=== PATIENT | female | born 1965 | race Caucasian/White ===

== ENCOUNTER 2016-08-06 08:35 | Emergency (ER) | payer MEDICAID ==
[2016-08-06] MEDS ORDERED: SODIUM CHLORIDE 0.9% 2,000 ML IV STA (08:57)
[2016-08-06] MEDS ORDERED: ONDANSETRON 4 MG/2 ML VIAL IVP STA ×2 (08:57→09:43)
[2016-08-06] MEDS ORDERED: FAMOTIDINE 20 MG/2 ML VIAL IV STA (09:03)
--- NOTE | 2016-08-06 09:04 | ED ---
Nausea/Vomiting/Diarrhea HPI - General Chief complaint: Nausea/Vomiting/Diarrhea Stated complaint: Vomiting Time Seen by Provider: 08/06/16 08:52 Source: patient, RN notes reviewed Mode of arrival: ambulatory Limitations: no limitations - History of Present Illness Initial comments: This a 50-year-old female presents emergency Department with chief complaint of nausea vomiting started last night. She states she originally started with some abdominal cramping in which she felt like she could just lay down or sleep states she woke up vomiting all night long. Patient states she is dry heaving and having bile emesis. Patient denies any hematemesis or coffee-ground emesis. Patient denies fever, chills, night sweats, chest pain, shortness breath, diarrhea constipation. She states she had normal bowel movement this morning. She denies any dysuria or hematuria. She's had a prior no other abdominal surgeries noted. denies any specific abdominal pain at this time. - Related Data Home Medications Medication Instructions Recorded Confirmed Cetirizine HCl [Zyrtec] 10 mg PO DAILY 12/25/13 08/06/16 Ibuprofen [Motrin] 800 mg PO Q8H PRN 02/26/16 08/06/16 Levothyroxine Sodium [Synthroid] 175 mcg PO DAILY 02/26/16 08/06/16 Sertraline HCl [Sertraline HCl] 100 mg PO DAILY 08/06/16 08/06/16 Previous Rx's Medication Instructions Recorded Ondansetron Odt [Zofran Odt] 4 mg PO Q8HR PRN #10 tab 08/06/16 Allergies Allergy/AdvReac Type Severity Reaction Status Date / Time acetaminophen Allergy Unknown Verified 08/06/16 10:46 [From Tylenol-Codeine #3] azithromycin Allergy Unknown Verified 08/06/16 10:46 codeine Allergy Unknown Verified 08/06/16 10:46 codeine phosphate Allergy Unknown Verified 08/06/16 10:46 [From Tylenol-Codeine #3] Penicillins Allergy Unknown Verified 08/06/16 10:46 tetanus toxoid, adsorbed Allergy Unknown Verified 08/06/16 10:46 Review of Systems ROS Statement: Those systems with pertinent positive or pertinent negative responses have been documented in the HPI. ROS Other: All systems not noted in ROS Statement are negative. Past Medical History Past Medical History: Thyroid Disorder Additional Past Medical History / Comment(s): BACK PAIN migraines History of Any Multi-Drug Resistant Organisms: None Reported Past Surgical History: Section, Hysterectomy Past Psychological History: Anxiety, Depression Smoking Status: Current every day smoker Past Alcohol Use History: None Reported Past Drug Use History: None Reported General Exam Limitations: no limitations General appearance: alert, in no apparent distress Head exam: Present: atraumatic, normocephalic, normal inspection ENT exam: Present: mucous membranes moist Neck exam: Present: normal inspection, full ROM. Absent: tenderness, meningismus, lymphadenopathy Respiratory exam: Present: normal lung sounds bilaterally. Absent: respiratory distress, wheezes, rales, rhonchi, stridor Cardiovascular Exam: Present: regular rate, normal rhythm, normal heart sounds. Absent: systolic murmur, diastolic murmur, rubs, gallop, clicks GI/Abdominal exam: Present: soft, tenderness (Mild epigastric tenderness), normal bowel sounds. Absent: distended, guarding, rebound, rigid Back exam: Absent: CVA tenderness (R), CVA tenderness (L) Skin exam: Present: warm, dry, intact, normal color. Absent: rash Course Vital Signs 08/06/16 08/06/16 08:49 11:11 Temperature 98.1 F Pulse Rate 69 73 Respiratory 17 18 Rate Blood Pressure 119/56 104/58 O2 Sat by Pulse 98 96 Oximetry Medical Decision Making - Medical Decision Making 50-year-old female presented for nausea vomiting. Patient states she does feel improved at this time. Patient be discharged Zofran. Return parameters were discussed. Lab work within normal limits. Patient was hydrated with a mild elevation in her potassium. Labs is slightly hemolyzed. - Lab Data Result diagrams: 08/06/16 09:10 08/06/16 09:10 Lab Results 08/06/16 08/06/16 08/06/16 Range/Units 09:10 09:10 09:15 WBC 9.6 (3.8-10.6) k/uL RBC 4.84 (3.80-5.40) m/uL Hgb 14.9 (11.4-16.0) gm/dL Hct 44.7 (34.0-46.0) % MCV 92.3 (80.0-100.0) fL MCH 30.8 (25.0-35.0) pg MCHC 33.3 (31.0-37.0) g/dL RDW 13.1 (11.5-15.5) % Plt Count 270 (150-450) k/uL Neutrophils % 84 % Lymphocytes % 9 % Monocytes % 4 % Eosinophils % 1 % Basophils % 0 % Neutrophils # 8.1 H (1.3-7.7) k/uL Lymphocytes # 0.9 L (1.0-4.8) k/uL Monocytes # 0.4 (0-1.0) k/uL Eosinophils # 0.1 (0-0.7) k/uL Basophils # 0.0 (0-0.2) k/uL Sodium 138 (137-145) mmol/L Potassium 5.5 H (3.5-5.1) mmol/L Chloride 100 (98-107) mmol/L Carbon Dioxide 29 (22-30) mmol/L Anion Gap 9 mmol/L BUN 17 (7-17) mg/dL Creatinine 0.83 (0.52-1.04) mg/dL Est GFR (MDRD) Af Amer >60 (>60 ml/min/1.73 sqM) Est GFR (MDRD) Non-Af >60 (>60 ml/min/1.73 sqM) Glucose 121 H (74-99) mg/dL Calcium 9.6 (8.4-10.2) mg/dL Total Bilirubin 0.6 (0.2-1.3) mg/dL AST 17 (14-36) U/L ALT 26 (9-52) U/L Alkaline Phosphatase 101 (38-126) U/L Total Protein 7.7 (6.3-8.2) g/dL Albumin 4.6 (3.5-5.0) g/dL Amylase 56 (30-110) U/L Lipase 64 (23-300) U/L Urine Color Yellow Urine Appearance Clear (Clear) Urine pH 6.0 (5.0-8.0) Ur Specific [place] 1.030 (1.001-1.035) Urine Protein 1+ H (Negative) Urine Glucose (UA) Negative (Negative) Urine Ketones Negative (Negative) Urine Blood Negative (Negative) Urine Nitrite Negative (Negative) Urine Bilirubin Negative (Negative) Urine Urobilinogen 2.0 (<2.0) mg/dL Ur Leukocyte Esterase Negative (Negative) Urine RBC 2 (0-5) /hpf Urine WBC 1 (0-5) /hpf Ur Squamous Epith Cells 2 (0-4) /hpf Urine Bacteria Rare H (None) /hpf Urine Mucus Rare H (None) /hpf Disposition Clinical Impression: Gastroenteritis Disposition: HOME SELF-CARE Condition: Stable Instructions: Acute Nausea and Vomiting (ED) Additional Instructions: Please return to the Emergency Department if symptoms worsen or any other concerns. Prescriptions: Ondansetron Odt [Zofran Odt] 4 mg PO Q8HR PRN #10 tab PRN Reason: Nausea Time of Disposition: 11:40
[2016-08-06 09:22] LABS: Basophils % (A) 0 %; CH 31.2; CHCM 33.9; Eosinophils # (A) 0.1 k/uL (0-0.7); Eosinophils % (A) 1 %; HCT 44.7 % (34.0-46.0); HDW 2.46; HGB 14.9 gm/dL (11.4-16.0); Luc # (Auto) 0.14; Luc % (Auto) 2; Lymphocytes # (A) 0.9 k/uL (1.0-4.8); Lymphocytes % (A) 9 %; MCH 30.8 pg (25.0-35.0); MCHC 33.3 g/dL (31.0-37.0); MCV 92.3 fL (80.0-100.0); Mean Platelet Volume 7.2; Monocytes # (A) 0.4 k/uL (0-1.0); Monocytes % (A) 4 %; Neutrophils # (A) 8.1 k/uL (1.3-7.7); Neutrophils % (A) 84 %; RBC 4.84 m/uL (3.80-5.40); RDW 13.1 % (11.5-15.5); WBC 9.6 k/uL (3.8-10.6); WBC (Perox) 9.75
[2016-08-06 09:36] LABS: ALT 26 U/L (9-52); AST 17 U/L (14-36); Alkaline Phosphatase 101 U/L (38-126); Amylase 56 U/L (30-110); Anion Gap 9 mmol/L; Blood Urea Nitrogen 17 mg/dL (7-17); Calcium 9.6 mg/dL (8.4-10.2); Carbon Dioxide 29 mmol/L (22-30); Chloride 100 mmol/L (98-107); Glucose 121 mg/dL (74-99); Non-African American GFR(MDRD) >60 (>60 ml/min/1.73 sqM); Potassium 5.5 mmol/L (3.5-5.1); Sodium 138 mmol/L (137-145); Total Bilirubin 0.6 mg/dL (0.2-1.3); Total Protein 7.7 g/dL (6.3-8.2)
[2016-08-06 09:40] LABS: Appearance,Urine Clear (Clear); Bacteria,Urine Rare /hpf; Bilirubin,Urine Negative (Negative); Glucose,Urine (UA) Negative (Negative); Ketones,Urine Negative (Negative); Leukocyte Esterase,Urine Negative (Negative); Mucus,Urine Rare /hpf; Nitrite,Urine Negative (Negative); Particle Count 5341; Protein,Urine 1+ (Negative); RBC,Urine 2 /hpf (0-5); Squamous Epithelial Cell,Urine 2 /hpf (0-4); UA Billing (MACRO vs. MICRO) MICRO; WBC,Urine 1 /hpf (0-5)
[2016-08-06] MEDS ORDERED: HYOSCYAMINE SULFATE 0.125 MG TAB PO STA (09:43)
[2016-08-06] MEDS ORDERED: METOCLOPRAMIDE 5 MG/ML 2 ML VIAL IVP STA (11:39)
[2016-08-06 12:31] VITALS: BP 101/64; PULSE 78; RESP 16; TEMP 98
== END 2016-08-06 12:36 | disposition home or self-care (01) ==
LOC: EC 08:35
DX: K52.9 Noninfective gastroenteritis and colitis, unspecified (principal); E07.9 Disorder of thyroid, unspecified; F41.9 Anxiety disorder, unspecified; F32.9 Major depressive disorder, single episode, unspecified; F17.200 Nicotine dependence, unspecified, uncomplicated; Z79.899 Other long term (current) drug therapy; Z88.0 Allergy status to penicillin; Z88.1 Allergy status to other antibiotic agents; Z88.6 Allergy status to analgesic agent; Z88.5 Allergy status to narcotic agent; Z88.7 Allergy status to serum and vaccine
CPT/HCPCS: 36415; 80053; 82150; 83690; 85025; 81001; 99284; 96374; 96375 ×2; 96376; 96361 ×3; J2765; J2405

== ENCOUNTER → 2017-06-15 | Outpatient (CLI) | payer MEDICAID ==
[2017-06-15 08:14] LABS: T4, Free (Free Thyroxine) 0.64 ng/dL (0.78-2.19)
== END | disposition home or self-care (01) ==
LOC: LABWHC1 07:15
PROVIDERS: ATTEND Otolaryngology
DX: E03.9 Hypothyroidism, unspecified (principal)
CPT/HCPCS: 36415; 84439; 84443; 86376

== ENCOUNTER → 2017-08-18 | Outpatient (CLI) | payer MEDICAID ==
[2017-08-18 14:19] LABS: HGB 14.9 gm/dL (11.4-16.0); MCH 29.1 pg (25.0-35.0); MCHC 32.3 g/dL (31.0-37.0); MCV 90.1 fL (80.0-100.0); Mean Platelet Volume 8.2; Platelet Count 228 k/uL (150-450); RBC 5.11 m/uL (3.80-5.40); RDW 13.2 % (11.5-15.5); WBC 5.3 k/uL (3.8-10.6)
== END | disposition home or self-care (01) ==
LOC: LABWHC1 13:59
PROVIDERS: ATTEND Internal Medicine Endocrinology, Diabetes & Metabolism
DX: E03.8 Other specified hypothyroidism (principal)
CPT/HCPCS: 36415; 84443; 85027

== ENCOUNTER → 2017-10-04 | Outpatient (CLI) | payer MEDICAID | END | disposition home or self-care (01) | LOC: LABWHC1 12:13 | PROVIDERS: ATTEND Internal Medicine Endocrinology, Diabetes & Metabolism | DX: E03.8 Other specified hypothyroidism (principal) | CPT/HCPCS: 36415; 84443 ==

== ENCOUNTER → 2017-12-14 | Outpatient (CLI) | payer MEDICAID ==
--- NOTE | 2017-12-16 08:35 | MM ---
Reason for exam: clinical finding. Last mammogram was performed 8 months ago. History: Cyst aspiration of the left breast, 2013. Physical Findings: Nurse Summary: 0.5-1cm nodule in the right breast at 9:30 and 12 o'clock, a 0.5-2cm nodule in the left breast at 9 o'clock, 12 o'clock and 1 o'clock (nurse kp). MG 3D Diag Mammo W/Cad LT CC and MLO view(s) were taken of the left breast. Prior study comparison: April 28, 2017, bilateral MG 3d screening mammo w/cad. March 02, 2016, bilateral MG 3d diag mammo w/cad [facility]. The breast tissue is extremely dense which could obscure a lesion on mammography. Elongated dense tissue is seen on the left breast multiple ill defined masses better appreciated sonographically due to breast tissue composition. These results were verbally communicated with the patient and result sheet given to the patient on 12/14/17. ASSESSMENT: Incomplete: need additional imaging evaluation, BI-RAD 0 RECOMMENDATION: Ultrasound of both breasts.
--- NOTE | 2017-12-16 08:45 | USB ---
Reason for exam: additional evaluation requested from abnormal screening. History: Cyst aspiration of the left breast, 2013. US Breast BILAT Right complete breast ultrasound includes all four quadrants, the retroareolar region and axilla. Finding demonstrates several oval cystic lesions measuring 0.5 x 0.7 x 0.4cm at 12 o'clock, 0.4 x 0.6 x 0.4cm at 12 o'clock, 0.8 x 0.7 x 0.5cm at 12 o'clock, 0.6 x 0.6 x 0.4cm at 1 o'clock, 1.1 x 1.0 x 0.7cm at 2 o'clock, 0.8 x 0.6 x 0.3cm at 9 o'clock, 1.0 x 1.1 x 0.7cm at 1 o'clock BB, 0.5 x 0.4 x 0.4cm at 11 o'clock and a 0.7 x 0.6 x 0.3cm oval, mixed lesion at 10 o'clock. Left complete breast ultrasound includes all four quadrants, the retroareolar region and axilla. Finding demonstrates a 0.6 x 0.9 x 0.6cm oval, mixed lesion at 12 o'clock BB, a 1.7 x 1.4 x 1.2cm irregular, solid, vascular lesion at 12 o'clock for which a biopsy is recommended, a 0.8 x 0.9 x 0.7cm oval, mixed lesion at 1 o'clock, a 1.5 x 1.6 x 0.6cm cystic lesion at 1 o'clock BB, a 0.6 x 0.6 x 0.5cm cystic lesion at 3 o'clock, a 0.8 x 0.9 x 0.4cm solid lesion at 6 o'clock for which a biopsy is recommended, a 2.5 x 1.3 x 0.5cm irregular, solid lesion at 8 o'clock, a 2.9 x 3.1 x 1.2cm irregular, solid, hypoechoic, vascular lesion at 9 o'clock, a 2.7 x 3.5 x 1.2cm irregular, hypoechoic, solid lesion at 10 o'clock and a irregular mass continues as hypoechoic solid mass at 11 o'clock. It appears that multiple masses connect and extend over 5.2cm from 8 o'clock on the left and therefore 2 site biopsy and the margins are recommended to establish possible extent of disease. Management of the solid mass at 6 o'clock on the left should be made on recommendations at rad/path correlation of the above recommended biopsies. These results were verbally communicated with the patient and result sheet given to the patient on 12/14/17. ASSESSMENT: Suspicious, BI-RAD 4 RECOMMENDATION: Ultrasound core biopsy of the left breast. Called Dr. Jean with mammographic findings and office will call patient and set up appointment and biopsy. PRELIMINARY REPORT CALLED AND FAXED TO DR. JEAN ON 12/16/17.
== END | disposition home or self-care (01) ==
LOC: RADMAMWWP 13:28
PROVIDERS: ATTEND Family Medicine
DX: N63.20 Unspecified lump in the left breast, unspecified quadrant (principal); R92.8 Other abnormal and inconclusive findings on diagnostic imaging of breast
CPT/HCPCS: 77061; 77065

== ENCOUNTER → 2017-12-20 | Outpatient (CLI) | payer MEDICAID ==
--- NOTE | 2017-12-20 16:06 | CT ---
EXAMINATION TYPE: CT chest wo con DATE OF EXAM: 12/20/2017 COMPARISON: None HISTORY: 52-year-old female abnormal weight loss, family hx of lung ca TECHNIQUE: Contiguous axial scanning of the chest without IV contrast. Coronal and sagittal reconstru ctions performed. CT DLP: 118.1 mGycm Automated exposure control for dose reduction was used. FINDINGS: Heart normal size without pericardial effusion. Ascending aorta normal caliber with bovine configuration to the aortic arch. Upper descending thoraci c aorta borderline ectatic at 3.0 cm. No thoracic lymphadenopathy identified by noncontrast technique. Calcified granuloma medial right upper lobe. -4 mm peripheral left upper lobe pulmonary nodule axial image 12. -3 mm peripheral right mid to lower lung pulmonary nodule in the right middle lobe, axial image 38. -4 mm right midlung pulmonary nodule along the superior major fissure, axial image 21. Mild biapical pleural-parenchymal scarring and mild scattered centrilobular emphysema especially in t he upper lungs. No consolidation or pleural effusion. Visualized upper abdomen shows a small 5 mm gallstone. Otherwise, assessment limited without IV contr ast. Bones: No osseous destructive process. IMPRESSION: 1. COPD WITH MILD EMPHYSEMA. 2. APPROXIMATELY 3 PULMONARY NODULES MEASURING UP TO 4 MM. SIX-MONTH FOLLOW-UP CT RECOMMENDED. 3. CHOLELITHIASIS.
== END | disposition home or self-care (01) ==
LOC: RADCTMAIN 14:56
PROVIDERS: ATTEND Family Medicine
DX: R91.8 Other nonspecific abnormal finding of lung field (principal); J44.9 Chronic obstructive pulmonary disease, unspecified
CPT/HCPCS: 71250

== ENCOUNTER 2018-01-03 12:26 | Day surgery (SDC) | payer MEDICAID ==
[2018-01-02 12:07] VITALS: BMI 17.4
[~2018-01-03 12:26] MED LIST: LACTATED RINGERS 1,000 ML IV SCH; LIDOCAINE 1% 20 ML VIAL (10MG/ML) FOR IV START INTRADERMA PRN; MIDAZOLAM 2 MG/2 ML VIAL IV PRN
[2018-01-03 12:58] VITALS: RESP 16; TEMP 98.3
[2018-01-03] MEDS ORDERED: LIDOCAINE 1% INJ 10MG/ML (20 ML MDV) ONE (13:41)
[2018-01-03] MEDS ORDERED: PROPOFOL 10 MG/ML 20 ML VIAL IV ONE (13:41)
--- NOTE | 2018-01-03 14:08 | P.PCN ---
Date of Procedure: 01/03/18 Procedure(s) Performed: Procedure: Total colonoscopy. Preoperative diagnosis: Screening for neoplasia. Postoperative diagnosis: Exam within normal limits. Preparation: HalfLytely prep. Sedation: Was provided by anesthesia. Brief clinical history: The patient is a 52-year-old female who was scheduled for this evaluation for screening for neoplasia age being her risk factor. No family history of colon cancer. She has no abdominal complaints, bleeding or anemia. This would be her first colonoscopy. Procedure: With the patient on her left lateral decubitus position and after informed consent and adequate sedation, the anal area was inspected and it did not show any fissures or fistulas. There were no masses felt on digital rectal examination. The Olympus CFQ 160L video colonoscope was then inserted in the rectum in the usual fashion and advanced to the cecum. The mucosa appeared healthy. No polyps or tumors were seen or any obvious diverticular disease or other pathology. I retroflexed the endoscope in the rectum before the endoscope was withdrawn. The patient tolerated the procedure well. Plan: The patient was reassured. She will follow-up with you as planned and I recommended repeat exam in 10 years.
[2018-01-03 14:26] VITALS: PULSE 69
[2018-01-03 14:38] VITALS: BP 120/78
== END 2018-01-03 14:50 | disposition home or self-care (01) ==
LOC: ORWHC2ENDO 12:26
DX: Z12.11 Encounter for screening for malignant neoplasm of colon (principal); F32.9 Major depressive disorder, single episode, unspecified; E07.9 Disorder of thyroid, unspecified; M54.9 Dorsalgia, unspecified; F17.210 Nicotine dependence, cigarettes, uncomplicated; Z88.0 Allergy status to penicillin; Z88.7 Allergy status to serum and vaccine; Z88.5 Allergy status to narcotic agent; Z88.1 Allergy status to other antibiotic agents; Z79.890 Hormone replacement therapy; Z79.1 Long term (current) use of non-steroidal anti-inflammatories (NSAID); Z79.899 Other long term (current) drug therapy
CPT/HCPCS: G0121; J2001; J2704

== ENCOUNTER → 2018-01-10 | Day surgery (SDC) | payer MEDICAID ==
[2018-01-10 11:41] VITALS: BP 104/50; PULSE 71; RESP 16; TEMP 97.8; BMI 17.4
--- NOTE | 2018-01-10 15:13 | USB ---
EXAMINATION TYPE: US biopsy breast VAD LT x 3 site, Postbiopsy MG diagnostic mammo LT wo CAD DATE OF EXAM: 01/10/2018 CLINICAL HISTORY: 52-year-old female R92.8 Abnormal Mammo. TECHNIQUE: Ultrasound guided core biopsy of the left breast, 3 sites. COMPARISON: 12/14/2017 and 04/28/2017 FINDINGS: The procedure of ultrasound guided core biopsy was explained to the patient. Benefits, alt ernatives, and risks were discussed. An informed consent was then obtained. Large contiguous area of heterogeneity was redemonstrated extending from 12:00 to 8:00. All of this a kaiser has a suspicious appearance. The 12:00 and 8:00 margins were targeted for biopsy. The ovoid, circumscribed hypoechoic lesion at 6:00 measuring 1.0 x 0.4 cm is also demonstrated and wa s targeted for biopsy. The patient was placed in supine positioning for imaging and for the procedure. The overlying skin w as prepped and draped in usual sterile fashion. Lidocaine buffered with bicarbonate was used as anes thetic into the skin and subcutaneous tissue up to each of 3 areas of concern in the left breast in t urn. SITE A - 12:00 superior margin - Under ultrasound guidance, a 13-gauge vacuum assisted mammotome Elit e biopsy gun device was used to obtain 5 core samples. Following this, a coil clip was left in lesio n. SITE B - 8:00 inferior margin - Under ultrasound guidance, a 13-gauge vacuum assisted mammotome Elite biopsy gun device was used to obtain 5 core samples. Ribbon clip was placed. However, the specimens were realized to be diminutive and inadequate when transferring to formalin. 2 additional 12-gauge co re specimens were obtained utilizing vacuum-assisted Celero device. A second ribbon clip was placed h ere in case the first ribbon clip was inadvertently removed. SITE C - 6:00 - Under ultrasound guidance, a 13-gauge vacuum assisted Mammotome Elite biopsy gun libertad ce was used to obtain 5 core samples. Following this, a wing clip was left at the site of biopsy. T he clip was deposited along the lateral margin of the lesion. The patient tolerated the procedure well without any immediate complication. The patient was kept in the radiology department for short stay after the procedure and then discharged home in stable condi tion. Post procedure mammogram shows a total of 4 clips, 12:00 coil clip demarcating the superior margin of the sonographic abnormality, two 8:00 ribbon clips demarcating the inferior margin of the sonographi c abnormality, and a separate wing clip at 6:00, possible fibroadenoma. IMPRESSION: Successful 3 site left breast biopsy. The superior and inferior margins of the sonographic abnormality are demarcated by coil and ribbon cl ips, respectively. This large area is very suspicious and extends from 8:00 to 12:00. A third site at 6:00 (wing clip) may be a fibroadenoma. Full pathology results to follow.
== END | disposition home or self-care (01) ==
LOC: RADUSWWP 11:21
PROVIDERS: ATTEND Family Medicine
DX: C50.912 Malignant neoplasm of unspecified site of left female breast (principal); D24.2 Benign neoplasm of left breast; N60.02 Solitary cyst of left breast; N60.32 Fibrosclerosis of left breast
CPT/HCPCS: 88305; 88342; 77065; 19083; 19084 ×2; A4648; J2001

== ENCOUNTER → 2018-01-12 | Outpatient (CLI) | payer MEDICAID | END | disposition home or self-care (01) | LOC: LABWHC1 15:05 | PROVIDERS: ATTEND Internal Medicine Endocrinology, Diabetes & Metabolism | DX: E03.8 Other specified hypothyroidism (principal) | CPT/HCPCS: 36415; 84443 ==

== ENCOUNTER → 2018-02-10 | Outpatient (CLI) | payer MEDICAID ==
--- NOTE | 2018-02-21 15:29 | BMR ---
EXAMINATION TYPE: MR breast BILAT wo/w con DATE OF EXAM: 02/10/2018 Clinical history: New diagnosis multicentric left breast cancer and bilateral cysts. No intake forms provided. Comparisons: Mammogram and US dated 12/14/2017. Screening US dated 04/28/2017. Biopsy US images and p ost biopsy mammogram dated 01/10/18. PULSE SEQUENCES: Multiplanar, multisequence MR images of the breast were obtained on a 3.[employer] Magnetom Trio MRI imaging scanner. Coronal STIR in the body coil, followed by pre-contrast axial T 2 fat-saturated, non fat saturated Tl, and one pre- and five post-contrast fat-saturated images were obtained of both breasts together with the breast coil. Post-processed subtraction and MIP reconstruc tions were then generated. Dynamic images were spatially registered using the [id number] are package, and dynamic curves and parametric images were evaluated. As part of the dynamic portion of this examination, contrast was administered intravenously at a rate of 5 ml/sec, without complication. Field of View for the dynamic portion of this study was not provi ded. FINDINGS: There is heterogeneous fibroglandular tissue bilaterally and marked background enhancement. Coronal STIR sequence demonstrates normal right and prominent left axillary lymph nodes. Axial T2 sequence demonstrates innumerable bilateral scattered simple cysts. No fluid collections. Non fat saturated Tl sequence demonstrates no fat containing lesions. There are three areas of suscep tibility artifact in the left breast best seen in images #23,33 and 49. Delayed post contrast sequence demonstrates prominent left internal mammary Iymph node at the 3/4 int ercostal space, best seen in image number 37. Regarding the right breast: At the 11:00 position, 3.5 cm fn. There is focal non mass enhancement sukhdeep suring 1.3 x 0.8 x 2.1 cm. lnternal enhancement is heterogeneous. Kinetic assessment demonstrates fas t initial enhancement followed by washout in the delayed portions of the curve. Best seen in image nu mber 49. Otherwise marked background enhancement limits evaluation of subtle findings. Regarding the left breast: Centered at the 9:00 position, 1.5 cm fn, there is diffuse non mass enhanc ement measuring 3.3 x 1.6 x 5.4 cm. The areas of susceptibility artifact are embedded with in the dif fuse non mass enhancement. IMPRESSION: Known malignancy identified as a confluent area ofnon mass enhancement involving almost the entirelef t breast, maximum extent 5.4 cm. Suspicious non mass enhancement in the right breast as described in detail in the body of the report. Prominent left axillary lymph nodes, may be reactive or represent metastatic disease. Left internal mammary node is indeterminate. Innumerable bilateral simple cysts. Recommendations: Appropriate action be taken of the known left breast malignancy. MR directed US of the right breast non mass enhancement to plan for biopsy. If there is no US correla te,MR guided biopsy or wire localization can be performed. BI-RADS category 4, suspicious right breast. BI-RADS category 6, known biopsy proven malignancy left breast. REVIEWED BY: THIS DOCUMENT HAS BEEN ELECTRONICALLY SIGNED Jessi Javier MD Final Assembly Worker of Clinical Radiology Varnish Finisher. Breast Imaging Section Telesales Consultant Student Education in Radiology This exam was sent for outside expert review
== END ==
LOC: RADMRIMAIN 09:28
PROVIDERS: ATTEND Internal Medicine Hematology & Oncology
DX: C50.112 Malignant neoplasm of central portion of left female breast (principal)
CPT/HCPCS: 77059; 0159T; A9581

== ENCOUNTER → 2018-02-11 | Outpatient (CLI) | payer MEDICAID ==
--- NOTE | 2018-02-12 15:29 | PE ---
EXAMINATION TYPE: PET CT fusion skull to thigh DATE OF EXAM: 02/11/2018 COMPARISON: CT chest 12/20/2017 Prior PET/CT: None HISTORY: Breast cancer TECHNIQUE: Following the intravenous administration of 13.87 mCi of F-18 FDG, whole body images are performed from the skull base to the midthigh. Images are reviewed on the computer in the coronal, a xial, and sagittal planes. Reconstructed rotating images are created on independent workstation and reviewed on the computer. A localization and attenuation correction CT is performed in conjunction with the PET scan. DLP: 161.30 mGycm SCAN: Initial Blood glucose: 86 mg/dL Average Mediastinum SUV: 1.26 Average Liver SUV: 1.56 FINDINGS: NECK: There is some inflammatory change adjacent to the mandible. Correlate for periodontal dental d isease. Suspicious uptake within the neck is not otherwise identified. THORAX: Nodule within the periphery of the left upper lobe is identified. No abnormal uptake is evide nt. Radiotracer is background a 0.38. A 0.5 cm, this potentially could be below threshold. Monitoring with chest CT in 6 months is recommended. Radiotracer distribution through the chest appears normal. There is increased uptake within the anterior left breast with an SUV value of 2.6 which can be post surgical. Correlate with patient's history. ABDOMEN: No abnormal uptake PELVIS: No abnormal uptake OSSEOUS STRUCTURES: No abnormal uptake LOCALIZATION CT: Biopsy clips appear to be present within the left breast. Uptake within the breast o n the PET/CT may be related to the patient's reported cancer and/or inflammatory response from surger y.. Descending thoracic aorta at the level the main pulmonary artery is 2.8 cm. The main pulmonary bi furcation is 2.6 cm. Small gallstone is likely present. COMPARISON: The small nodular density in the periphery of the left apex is stable. IMPRESSION: 1. Uptake within the left breast which can related to the patient left breast cancer. 2. Metastatic disease is not identified. 3. No suspicious uptake at the nodule within the periphery of the left apex. Monitoring with CT chest months is recommended. 4. Cholelithiasis. 5. There may be some periodontal disease adjacent to the anterior mandible.
== END | disposition home or self-care (01) ==
LOC: RADPETMAIN 12:03
PROVIDERS: ATTEND Internal Medicine Hematology & Oncology
DX: C50.112 Malignant neoplasm of central portion of left female breast (principal); R94.8 Abnormal results of function studies of other organs and systems; K80.20 Calculus of gallbladder without cholecystitis without obstruction
CPT/HCPCS: 78815; A9552

== ENCOUNTER 2018-02-23 11:41 | Day surgery (SDC) | payer MEDICAID ==
[2018-02-20 10:58] VITALS: BMI 16.7
[~2018-02-23 11:41] MED LIST changes: +DEXAMETHASONE SOD PHOSPHATE 10 MG/ML 1 ML VIAL IV ONE; +HEPARIN SODIUM,PORCINE 5,000 UNIT/ML 1 ML VIAL SQ ONE; -LIDOCAINE 1% 20 ML VIAL (10MG/ML) FOR IV START INTRADERMA PRN; +ONDANSETRON 4 MG/2 ML VIAL IVP ONE; +Pre Op ABX Message 1 EACH MISC MISCELLANE ONE; +SCOPOLAMINE 1.5MG/72HR PATCH TRANSDERM ONE; +fentaNYL (PF) 50 MCG/ML 2 ML AMP IV PRN
[2018-02-23 12:34] VITALS: RESP 16; TEMP 97.2
[2018-02-23] MEDS ORDERED: LIDOCAINE 1% 20 ML VIAL (10MG/ML) FOR IV START INTRADERMA ONE (12:35)
[2018-02-23] MEDS ORDERED: CLINDAMYCIN 600 MG in DEXTROSE 5% IN WATER 50 ML IVPB STA ×2 (12:48)
[2018-02-23 13:28] VITALS: PULSE 71
--- NOTE | 2018-02-23 13:47 | P.GSHP ---
History of Present Illness H&P Date: 02/23/18 Chief Complaint: Left breast cancer Patient known to our service. Recently diagnosed with locally advanced left breast cancer. Patient was seen by oncology. Here today for Port-A-Cath placement for neoadjuvant chemotherapy initiation. Had a recent PET scan and MRI. Those results are pending. Past Medical History Past Medical History: Cancer, Musculoskeletal Disorder, Thyroid Disorder Additional Past Medical History / Comment(s): BACK PAIN, migraines. NEW DX BREAST CANCER-3 WEEKS AGO History of Any Multi-Drug Resistant Organisms: None Reported Past Surgical History: Section, Hysterectomy Additional Past Surgical History / Comment(s): C/S x3 Past Anesthesia/Blood Transfusion Reactions: No Reported Reaction Smoking Status: Current every day smoker - Past Family History Mother Family Medical History: Cancer Additional Family Medical History / Comment(s): lung Brother(s) Family Medical History: Cancer Medications and Allergies Home Medications Medication Instructions Recorded Confirmed Type Cetirizine HCl [Zyrtec] 10 mg PO DAILY 12/25/13 02/23/18 History Ibuprofen [Motrin] 800 mg PO Q8H PRN 02/26/16 02/23/18 History Levothyroxine Sodium [Synthroid] 112 mcg PO DAILY 02/26/16 02/23/18 History Allergies Allergy/AdvReac Type Severity Reaction Status Date / Time azithromycin Allergy Rash/Hives Verified 02/20/18 10:53 codeine Allergy Rash/Hives Verified 02/20/18 10:53 codeine phosphate Allergy Rash/Hives Verified 02/20/18 10:53 [From Tylenol-Codeine #3] Penicillins Allergy Rash/Hives Verified 02/20/18 10:53 tetanus toxoid, adsorbed Allergy Unknown Verified 02/20/18 10:53 Childhood Surgical - Exam Vital Signs Temp Pulse Resp BP Pulse Ox 97.2 F L 72 16 115/62 96 02/23/18 12:33 02/23/18 12:33 02/23/18 12:33 02/23/18 12:33 02/23/18 12:33 Physical exam: General: Well-developed, well-nourished HEENT: Normocephalic, sclerae nonicteric Abdomen: Nontender, nondistended Extremities: No edema Neuro: Alert and oriented Assessment and Plan (1) Breast cancer, left Narrative/Plan: Options discussed with the patient in detail. We'll proceed with Port-A-Cath placement at this time. Risks of bleeding, infection, DVT, pneumothorax, catheter malfunction, anesthesia related complications were discussed. The patient understands and wishes to proceed. Current Visit: Yes Status: Acute Code(s): C50.912 - MALIGNANT NEOPLASM OF UNSPECIFIED SITE OF LEFT FEMALE BREAST SNOMED Code(s): 886854449
[2018-02-23] MEDS ORDERED: PROPOFOL 10 MG/ML 20 ML VIAL IV ONE (14:00)
[2018-02-23] MEDS ORDERED: MORPHINE SULFATE 10 MG/ML SYRINGE ONE (14:00)
[2018-02-23] MEDS ORDERED: KETAMINE 10 MG/ML 20 ML VIAL ONE (14:00)
[2018-02-23] MEDS ORDERED: MIDAZOLAM 2 MG/2 ML VIAL ONE (14:00)
[2018-02-23] MEDS ORDERED: fentaNYL (PF) 50 MCG/ML 2 ML AMP ONE (14:00)
[2018-02-23] MEDS ORDERED: HEPARIN SODIUM,PORCINE 100 UNIT/ML 5 ML VIAL IV ONE ×2 (14:25)
[2018-02-23] MEDS ORDERED: LIDOCAINE (PF) 10 MG/ML 2 ML VIAL SQ ONE ×2 (14:25)
[2018-02-23] MEDS ORDERED: HYDROcodone/APAP 5-325MG 1 EACH TAB PO ONE (15:01)
[2018-02-23 15:03] VITALS: BP 106/70
[2018-02-23] MEDS ORDERED: NALOXONE 0.4 MG/ML 1 ML VIAL IV PRN (15:04)
[2018-02-23] MEDS ORDERED: HYDROcodone/APAP 5-325MG 1 EACH TAB PO PRN (15:04)
--- NOTE | 2018-02-23 15:06 | P.OP ---
Date of Procedure: 02/23/18 Procedure(s) Performed: PREOPERATIVE DIAGNOSIS: Left breast cancer POSTOPERATIVE DIAGNOSIS: Same PROCEDURE: Port-A-Cath placement SURGEON: Marques EBL: Minimal ANESTHESIA: Sedation COMPLICATIONS: None OPERATIVE PROCEDURE: Patient was brought and placed on the operative table in the supine position. The patient was sedated per anesthesia that time. The chest and neck were prepped and draped in usual sterile fashion. The ultrasound probe was used to identify the location of the right internal jugular vein. The skin was localized with lidocaine. The Seldinger needle was advanced into the IJ under ultrasound guidance. The wire was advanced through the needle under fluoroscopic guidance into the superior vena cava. A port pocket was created in the right infraclavicular location. The catheter was tunneled from the wire entrance site to the port pocket. The port was then connected to the catheter. The dilator introducer was threaded over the guidewire. The guidewire and dilator were then removed. The catheter was advanced through the introducer and introducer was then removed. The tip was seen to be in the right atrial junction. Port was flushed with both saline and a Hep-Lock solution. There was good flow both in and out of the port. The port was sutured in underlying tissues using 3-0 silk sutures. The subcutaneous tissues were reapproximated using 3-0 Vicryl sutures and the skin at both locations using 4-0 Monocryl sutures. Steri-Strips and sterile dressings then applied. DISPOSITION: Stable to recovery room
--- NOTE | 2018-02-23 15:23 | XR ---
EXAMINATION TYPE: XR chest 1V confirm line [facility] DATE OF EXAM: 02/23/2018 COMPARISON: Prior chest x-ray 03/07/2015 HISTORY: Status post Port-A-Cath placement TECHNIQUE: Single frontal view of the chest is obtained. FINDINGS: There has been interval placement of a port in the right pectoral region, distal tip of th e catheter is overlying the region of the cavoatrial junction, right jugular approach. There is no ev ident pneumothorax or pleural effusion. Interstitial changes are present within the lungs. Heart size may be accentuated by rotation. Pulmonary vascularity and brittney not significantly changed. IMPRESSION: No evident complication status post Port-A-Cath placement.
--- NOTE | 2018-02-23 15:58 | FL ---
Fluoroscopy HISTORY: Port-A-Cath insertion 13 seconds fluoroscopy time supplied to the referring clinician. 1 intraoperative C-arm images docum ent the procedure. See dictated report from general surgery.
== END 2018-02-23 15:39 | disposition home or self-care (01) ==
LOC: OR 11:41
PROVIDERS: ATTEND Surgery
DX: C50.912 Malignant neoplasm of unspecified site of left female breast (principal); E07.9 Disorder of thyroid, unspecified; F17.200 Nicotine dependence, unspecified, uncomplicated; Z79.890 Hormone replacement therapy; Z79.899 Other long term (current) drug therapy; Z88.1 Allergy status to other antibiotic agents; Z88.5 Allergy status to narcotic agent; Z88.0 Allergy status to penicillin; Z88.7 Allergy status to serum and vaccine; Z91.048 Other nonmedicinal substance allergy status
CPT/HCPCS: 81025; 77001; 36561; 76937; C1788; J2250; J2001; J1644; J1642; J1100; J2270; J2405; J3010; J2704

== ENCOUNTER → 2018-03-31 | Outpatient (CLI) | payer MEDICAID ==
--- NOTE | 2018-03-31 11:45 | US ---
EXAMINATION TYPE: US venous doppler duplex LE RT DATE OF EXAM: 03/31/2018 11:28 AM COMPARISON: NONE CLINICAL HISTORY: M79.661,R22.41 PAIN AND SWELLING OF RT LOWER LIMB. pain right leg SIDE PERFORMED: Right TECHNIQUE: The lower extremity deep venous system is examined utilizing real time linear array sonog kalani with graded compression, doppler sonography and color-flow sonography. VESSELS IMAGED: External Iliac Vein (EIV) Common Femoral Vein Deep Femoral Vein Greater Saphenous Vein * Femoral Vein Popliteal Vein Small Saphenous Vein * Proximal Calf Veins (* superficial vessels) Right Leg: No evidence of DVT as visualized IMPRESSION: No DVT
== END ==
LOC: RADUSWWP 11:05
PROVIDERS: ATTEND Internal Medicine Hematology & Oncology
DX: M79.661 Pain in right lower leg (principal); R22.41 Localized swelling, mass and lump, right lower limb

== ENCOUNTER → 2018-04-21 | Outpatient (CLI) | payer MEDICAID ==
[2018-03-09 13:50] VITALS: BMI 16.9
--- NOTE | 2018-04-21 17:49 | CT ---
EXAMINATION TYPE: CT chest wo con DATE OF EXAM: 04/21/2018 COMPARISON: 12/20/2017 HISTORY: Follow up breast cancer and nodules CT DLP: 264 mGycm, Automated exposure control for dose reduction was used. CONTRAST: Performed injected with 0 mL of Isovue 300. TECHNIQUE: Axial images were obtained at 5 mm thick sections. Reconstructed images are reviewed on [place] computer in the coronal plane. FINDINGS: Thyroid is not identified. No suspicious supraclavicular enlarged lymph nodes are evident. Emphysematous changes are present. There is a resolving area of pneumonitis within the periphery of the left upper lung field currently measuring 0.5 cm and appears less dense and nodular comparison study. 0.5 cm nodules in the posterior medial right upper lung field appears stable from the comparison study. Series 4 image 21. 0.2 cm pe ripheral nodule within the right middle lobe, series 4 image 40, appears stable from comparison. No enlarged mediastinal or hilar adenopathy is evident. The ascending aorta diameter at the level o f the main pulmonary artery is 3.0 cm. The main pulmonary artery diameter at the bifurcation is 2.[address] sections are obtained through the upper abdomen. Abdomen is essentially unremarkable. IMPRESSIONS: 1. Stable or improving nodules within the bilateral lungs discussed above. 2. No new nodules or increased size nodules are evident. 3. Continued monitoring is recommended with follow-up exam in 3-6 months.
== END | disposition home or self-care (01) ==
LOC: RADCTMAIN 08:43
PROVIDERS: ATTEND Family Medicine
DX: R91.8 Other nonspecific abnormal finding of lung field (principal)
CPT/HCPCS: 71250

== ENCOUNTER 2018-07-14 07:15 | Observation (INO) | payer MEDICAID ==
[~2018-07-14 07:15] MED LIST changes: -LACTATED RINGERS 1,000 ML IV SCH; +MIDAZOLAM (PF) 2 MG/2 ML VIAL IV PRN; -MIDAZOLAM 2 MG/2 ML VIAL IV PRN
[2018-07-14] MEDS ORDERED: LACTATED RINGERS 1,000 ML IV ONE ×3 (07:44→11:42)
[2018-07-14] MEDS ORDERED: LIDOCAINE 1% 20 ML VIAL (10MG/ML) FOR IV START INTRADERMA ONE (07:44)
[2018-07-14] MEDS ORDERED: ALPRAZolam 0.25 MG TAB PO ONE (07:44)
[2018-07-14] MEDS ORDERED: PROPOFOL 10 MG/ML 20 ML VIAL IV ONE (09:23)
[2018-07-14] MEDS ORDERED: KETAMINE 10 MG/ML 20 ML VIAL ONE (09:23)
[2018-07-14] MEDS ORDERED: fentaNYL (PF) 50 MCG/ML 2 ML AMP ONE (09:23)
[2018-07-14] MEDS ORDERED: MIDAZOLAM 2 MG/2 ML VIAL ONE (09:23)
[2018-07-14] MEDS ORDERED: LIDOCAINE 1% INJ 10MG/ML (20 ML MDV) ONE (09:23)
[2018-07-14] MEDS ORDERED: SUCCINYLCHOLINE CHLORIDE 100 MG/5 ML SYR IV ONE (09:23)
[2018-07-14] MEDS ORDERED: HYDROmorphone (PF) 1 MG/ML ONE (09:23)
[2018-07-14] MEDS ORDERED: diphenhydrAMINE 50 MG/ML 1 ML VIAL ONE (09:23)
[2018-07-14] MEDS ORDERED: KETOROLAC 30 MG/ML 1 ML VIAL ONE (09:23)
[2018-07-14] MEDS ORDERED: METHYLENE BLUE 10 MG/ML (10 ML VIAL) INJ ONE (09:29)
[2018-07-14] MEDS ORDERED: SODIUM CHLORIDE 0.9% 100 ML with ceFAZolin 2,000 MG IV ONE ×2 (09:47)
[2018-07-14] MEDS ORDERED: NALOXONE 0.4 MG/ML 1 ML VIAL IV PRN (12:23)
[2018-07-14] MEDS ORDERED: HYDROcodone/APAP 5-325MG 1 EACH TAB PO PRN (12:23)
[2018-07-14] MEDS ORDERED: ONDANSETRON 4 MG/2 ML VIAL IVP PRN (12:23)
--- NOTE | 2018-07-14 12:38 | P.OP ---
Date of Procedure: 07/14/18 Procedure(s) Performed: PREOPERATIVE DIAGNOSIS: Left breast cancer POSTOPERATIVE DIAGNOSIS: Same PROCEDURE: Left breast mastectomy with sentinel lymph node biopsy followed by axillary node dissection, right breast simple mastectomy SURGEON: Marques EBL: Minimal ANESTHESIA: General COMPLICATIONS: None OPERATIVE PROCEDURE: Patient was placed on the operating room table in the supine position. 2 mL of methylene blue was injected into the subareolar space on the left-hand side. The chest wall was prepped and draped in usual sterile fashion. The breast was then massaged for 5 minutes. Using the skin marker the proposed incision sites were drawn out on the chest wall bilaterally. The right side was first addressed. The superior incision was first created. The incision was elliptical in nature encompassing the nipple areolar complex. Flaps were raised superiorly until the chest wall was reached. Inferiorly the skin incision was made flaps were again raised until the chest wall was reached. The breast was removed from the chest wall using electrocautery. Multiple vessels were divided using either electrocautery or the clip trade recruiter. The area was irrigated. No bleeding was seen. A drain was placed beneath the flaps of the mastectomy incision. The subcutaneous tissues were then closed using 3-0 Vicryl sutures and the skin was closed using a running 4-0 Monocryl stitch. At that time the left side was addressed. The superior incision was re -created using a scalpel. Dissection superiorly to the chest wall took place. As we approached the axilla the neoprobe was utilized to identify the hot spot in that area. In fact in this case the patient had a huge lymphatic vessel that was bright blue in color and was able to be easily followed to the first sentinel lymph node. An adjacent lymph node was also seen that was blue in color and radioactive. A third sentinel node was also identified that was blue in color and radioactive. These were sent for frozen section. The inferior mastectomy incision was made as well. The dissection took place down to the chest wall as well. The mastectomy specimen was passed off the field. We then received notification from pathology. The first lymph node did reveal multifocal metastasis within the node thought to be likely greater than 2 mm in size. It was decided to proceed with axillary node dissection. The axillary contents were swept inferiorly using blunt dissection cautery and the LigaSure device. Some vessels were clipped as well. The course of the long thoracic and thoracodorsal nerves were identified and preserved. The axillary contents were sent separately labeled left axillary contents. The chest wall was irrigated with saline. 2 drains were placed on the left side one in the axillary space and one underneath the mastectomy flap. The mastectomy incision was closed in a similar fashion using 3-0 Vicryl subcutaneous sutures and a running 4-0 Monocryl skin stitch. Prineo dressing was used along the entire length of the incision with Dermabond. The drain drains were sutured in place using a 3-0 silk stitch. DISPOSITION: Stable to recovery room
[2018-07-14] MEDS: HYDROmorphone 1 MG/ML 1 ML SYRINGE IVP ONE ×2 (13:20→13:30)
[2018-07-14] MEDS: LACTATED RINGERS 1,000 ML IV SCH (13:59)
[2018-07-14] MEDS: NICOTINE 7MG/24HR PATCH TRANSDERM SCH (14:01)
[2018-07-14] MEDS: D5-0.45% NACL WITH KCL 20MEQ/L 1,000 ML IV SCH (14:47)
[2018-07-14] MEDS: traMADol 50 MG TAB PO SCH ×3 (14:47→21:15)
--- NOTE | 2018-07-14 14:59 | NM ---
EXAMINATION TYPE: NM sentinel node injection DATE OF EXAM: 07/14/2018 COMPARISON: NONE INDICATION: Abnormal mammogram. Informed consent was obtained. A timeout was performed. The area around the left nipple was cleansed with alcohol. Total of 469 uCi technetium 99m lymphoseek was administered. The patient tolerated the procedure very well. IMPRESSIONS: 1.. Successful injection for sentinel node evaluation.
[2018-07-14] MEDS: HYDROmorphone 1 MG/ML 1 ML SYRINGE IVP PRN (17:04)
[2018-07-14] MEDS: HEPARIN SODIUM,PORCINE 5,000 UNIT/ML 1 ML VIAL SQ SCH ×2 (17:04→17:11)
[2018-07-14] MEDS ORDERED: SENNOSIDES 8.6 MG TAB PO PRN (18:13)
[2018-07-14] MEDS ORDERED: NICOTINE POLACRILEX 2 MG GUM BUCCAL PRN (18:14)
[2018-07-14] MEDS: IPRATROPIUM-ALBUTEROL 3 ML NEB INHALATION SCH (20:14)
[2018-07-14] MEDS: PSYLLIUM HUSK 100% 6 GM PACKET PO SCH (21:14)
[2018-07-14] MEDS: DOCUSATE 100 MG CAP PO SCH (21:15)
[2018-07-14] MEDS: FAMOTIDINE 20 MG TAB PO SCH (21:15)
[2018-07-14] MEDS: DULoxetine HCL 20 MG CAPSULE.DR PO SCH (22:02)
--- NOTE | 2018-07-14 22:38 | CONS ---
CONSULTATION DATE OF CONSULTATION: July 14, 2018. REASON FOR CONSULTATION: Medical management requested by Dr. Mohan. CONSULTATION: This is a pleasant 52-year-old patient of Dr. Jean. The patient was diagnosed to have left breast cancer in the form of invasive moderately differentiated ductal carcinoma with estrogen receptor positive, progesterone receptor positive and HER 2 negative. The patient today has undergone bilateral mastectomy with axillary node dissection left side. Some pain is present. Family members present at the bedside including friends. The patient's chronic stable medical conditions include COPD, hypothyroid, depression. The patient did receive chemotherapy finished the same by oncologist Dr. Torres. REVIEW OF SYSTEMS: CONSTITUTIONAL: None. HEENT none. RESPIRATORY: Occasional wheezing and cough. CARDIOVASCULAR: None. GASTROINTESTINAL: None. GENITOURINARY none. MUSCULOSKELETAL: Some lower back pain. DERMATOLOGICAL, HEMATOLOGIC AND LYMPHATIC: None. Anxiety, depression, present. NEUROLOGICAL: None. PAST MEDICAL HISTORY: COPD, hypothyroid, anxiety and depression, invasive ductal carcinoma, moderately differentiated of the left breast. PAST SURGICAL HISTORY: , hysterectomy, left breast biopsy. PSYCH HISTORY: Anxiety and depression. SOCIAL HISTORY: Patient smoked for about 34 years, mostly mainly a pack a day, down to 5 cigarettes a day up to yesterday. 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 FAMILY HISTORY: Lung cancer. HOME MEDICATIONS: 1. Senokot 8.6 mg b.i.d. p.r.n. 2. Synthroid 137 mcg a day. 3. Motrin 800 mg q.8h p.r.n. 4. Cymbalta 20 mg p.o. daily. 5. Flexeril 10 mg t.i.d. 10 mg p.o. daily. ALLERGIES: To AZITHROMYCIN, CODEINE, PENICILLIN, LOPEZ, TETANUS. PHYSICAL EXAMINATION: Temperature 98.4, pulse 97, respirations 16, blood pressure 101/56, pulse ox 98% on room air. GENERAL APPEARANCE: Thin built. BMI, sitting up awake, a bit anxious-appearing. EYES: Pupils equal. Conjunctivae normal. HEENT: External appearance of nose and ears normal. Oral cavity normal. NECK: JVD not raised. Mass not palpable. RESPIRATORY: Effort normal. LUNGS: Diminished breath sounds. Mild wheezing. Cardiovascular: 1st and 2nd sounds normal. No edema. ABDOMEN: Soft, nontender. Liver and spleen not palpable. LYMPHATICS: No lymph nodes palpable in the neck. PSYCHIATRY: Alert and oriented times 3. Mood and affect slightly anxious-appearing. NEUROLOGICAL: Pupils equal. Cranial nerves grossly intact. Power and sensation grossly intact. INVESTIGATIONS: Blood work from June 15, 2018 shows a white count of 22, hemoglobin 11.9, potassium 4.0 BUN creatinine is normal. ASSESSMENT: 1. Left breast mastectomy with sentinel low lymph node biopsy followed by axillary node dissection and right breast simple mastectomy for invasive ductal carcinoma, estrogen and progesterone receptor positive and HER negative with recent completion of chemotherapy. 2. Chronic obstructive pulmonary disease in a current smoker next chronic nicotine dependence, patient is a cigarette smoker. 3. Hypothyroidism. 4. Anxiety and depression not otherwise specified. 5. Chronic obstructive pulmonary disease in a current smoker. PLAN: Home medications will be resumed. The patient be given breathing treatment. Also given nicotine patch and nicotine gum. Pain control per Dr. Mohan. The patient has got Venodyne boots for DVT prophylaxis. Care was discussed with the patient. Questions were answered. Thank you Dr. Mohan. MMODL / IJN: [id number] /
[2018-07-15] MEDS: CYCLOBENZAPRINE 10 MG TAB PO SCH ×3 (00:13→15:01)
[2018-07-15] MEDS: LEVOTHYROXINE 137 MCG TAB PO SCH (05:34)
[2018-07-15] MEDS: D5-0.45% NACL WITH KCL 20MEQ/L 1,000 ML IV SCH ×2 (05:35→15:07)
[2018-07-15 07:13] LABS: Basophils % (A) 1 %; Eosinophils # (A) 0.1 k/uL (0-0.7); Eosinophils % (A) 2 %; HCT 29.7 % (34.0-46.0); Lymphocytes # (A) 1.1 k/uL (1.0-4.8); Lymphocytes % (A) 22 %; MCH 33.9 pg (25.0-35.0); MCHC 33.1 g/dL (31.0-37.0); MCV 102.7 fL (80.0-100.0); Macrocytosis Slight; Monocytes # (A) 0.4 k/uL (0-1.0); Monocytes % (A) 8 %; Neutrophils # (A) 3.2 k/uL (1.3-7.7); Neutrophils % (A) 65 %; Platelet Count 183 k/uL (150-450); RDW 13.7 % (11.5-15.5); WBC 4.9 k/uL (3.8-10.6)
[2018-07-15 07:14] LABS: HGB 9.8 gm/dL (11.4-16.0)
[2018-07-15] MEDS: ACETAMINOPHEN TAB 325 MG TAB PO PRN ×2 (07:17→20:55)
[2018-07-15 07:30] LABS: Anion Gap 4 mmol/L; Blood Urea Nitrogen 12 mg/dL (7-17); Carbon Dioxide 26 mmol/L (22-30); Chloride 110 mmol/L (98-107); Glucose 91 mg/dL (74-99); Potassium 4.1 mmol/L (3.5-5.1); Sodium 140 mmol/L (137-145)
[2018-07-15] MEDS: DULoxetine HCL 20 MG CAPSULE.DR PO SCH (07:47)
[2018-07-15] MEDS: PSYLLIUM HUSK 100% 6 GM PACKET PO SCH (07:47)
[2018-07-15] MEDS: traMADol 50 MG TAB PO SCH ×2 (07:47→15:01)
[2018-07-15] MEDS: FAMOTIDINE 20 MG TAB PO SCH ×2 (07:47→20:55)
[2018-07-15] MEDS: HEPARIN SODIUM,PORCINE 5,000 UNIT/ML 1 ML VIAL SQ SCH ×2 (07:47→15:01)
[2018-07-15] MEDS: NICOTINE 7MG/24HR PATCH TRANSDERM SCH (07:48)
[2018-07-15] MEDS: DOCUSATE 100 MG CAP PO SCH ×2 (07:49→20:55)
[2018-07-15] MEDS: IPRATROPIUM-ALBUTEROL 3 ML NEB INHALATION SCH ×3 (08:34→20:05)
--- NOTE | 2018-07-15 09:52 | P.PN ---
Subjective Progress Note Date: 07/15/18 Principal diagnosis: Left breast cancer Patient doing well today. Mild anxiety and mild tenderness. T-max 99.2. DORY drain serosanguineous. Objective - Vital Signs Vital signs: Vital Signs Temp 97.8 F 07/15/18 07:00 Pulse 94 07/15/18 08:49 Resp 17 07/15/18 07:00 BP 91/52 07/15/18 07:00 Pulse Ox 96 07/15/18 00:02 Intake & Output 07/14/18 07/15/18 07/15/18 18:59 06:59 18:59 Intake Total 2800 788 480 Output Total 50 95 Balance 2750 693 480 Intake: IV 2400 Intake, IV Titration 100 788 Amount D5-0.45% NaCl with KCl 788 20Meq/l 1,000 ml @ 75 mls /hr IV .[id number] JOSH Rx#: [id number] Lactated Ringers 1,000 ml 100 @ 20 mls/hr IV .Q24H JOSH Rx#:[id number] Oral 300 480 Output: Drainage 95 Left Breast 30 Left Lateral Chest 25 Right breast 40 Estimated Blood Loss 50 Other: Voiding Method Toilet # Voids 1 - Exam Bilateral chest wall incisions clean and dry without ischemia or hematoma formation, mild tenderness - Labs CBC & Chem 7: 07/15/18 06:25 07/15/18 06:25 Labs: Abnormal Lab Results - Last 24 Hours (Table) 07/15/18 07/15/18 Range/Units 06:25 06:25 RBC 2.90 L (3.80-5.40) m/uL Hgb 9.8 L D (11.4-16.0) gm/dL Hct 29.7 L (34.0-46.0) % MCV 102.7 H (80.0-100.0) fL Chloride 110 H (98-107) mmol/L Assessment and Plan (1) Breast cancer, left Narrative/Plan: Patient doing fairly well postoperatively. Anxiety is one of the larger issues. Doing better however. Continue increasing activity. Monitor incision sites. Home 24-48 hours. Current Visit: No Status: Acute Code(s): C50.912 - MALIGNANT NEOPLASM OF UNSPECIFIED SITE OF LEFT FEMALE BREAST SNOMED Code(s): 501931461
[2018-07-15] MEDS: HYDROmorphone 1 MG/ML 1 ML SYRINGE IVP PRN (11:54)
[2018-07-15] MEDS: diphenhydrAMINE 50 MG/ML 1 ML VIAL IVP PRN (15:42)
[2018-07-15] MEDS ORDERED: BENZOCAINE/MENTHOL LOZENG 1 EACH LOZENGE MUCOUS MEM PRN (17:41)
[2018-07-15] MEDS: KETOROLAC 30 MG/ML 1 ML VIAL IVP SCH (17:45)
[2018-07-15] MEDS: LACTATED RINGERS 1,000 ML IV SCH (20:19)
--- NOTE | 2018-07-15 21:24 | PN ---
PROGRESS NOTE DATE OF SERVICE: July 15, 2018. PRESENTING COMPLAINT: Breast surgery. INTERVAL HISTORY: Patient is status post bilateral mastectomy. Lying in bed, a bit tired, getting bronchodilators. Did tolerate some diet. Has got a nicotine patch. REVIEW OF SYSTEMS: Done for constitutional, cardiovascular, GI, pulmonary; relevant findings as above. CURRENT MEDICATIONS: Reviewed that include DuoNeb. PHYSICAL EXAMINATION: VITAL SIGNS: Temperature 98.4, pulse 91, respirations 16, blood pressure 113/41, pulse ox 93 percent on room air. GENERAL APPEARANCE: Lying in bed, somewhat tired-appearing. EYES: Pupils equal. Conjunctivae normal. NECK: JVD not raised. Mass not palpable. RESPIRATORY: Effort increased. LUNGS: Diminished breath sounds. Minimal wheezing. CARDIOVASCULAR: First and second sounds normal. No edema. ABDOMEN: Soft, nontender. Liver and spleen not palpable. PSYCHIATRY: Alert and oriented times three. Mood slightly anxious-appearing. Chest wall has got a dressing in place. INVESTIGATIONS: White count 4.8, hemoglobin 9.8. Preop hemoglobin was 11.9. ASSESSMENT: 1. Bilateral breast mastectomy for invasive ductal carcinoma. 2. Acute postoperative blood loss anemia expected from surgery. 3. Chronic obstructive pulmonary disease in a current smoker. 4. Chronic nicotine dependence. Patient is a cigarette smoker. 5. Hypothyroidism. 6. Anxiety, depression not otherwise specified. 7. Chronic obstructive pulmonary disease in a current smoker. MMODL / IJN: [id number] /
[2018-07-16] MEDS: KETOROLAC 30 MG/ML 1 ML VIAL IVP SCH ×4 (00:47→17:13)
[2018-07-16] MEDS: ACETAMINOPHEN TAB 325 MG TAB PO PRN ×3 (00:47→14:22)
[2018-07-16] MEDS: CYCLOBENZAPRINE 10 MG TAB PO SCH ×4 (00:47→21:38)
[2018-07-16] MEDS: HEPARIN SODIUM,PORCINE 5,000 UNIT/ML 1 ML VIAL SQ SCH ×3 (00:48→16:03)
[2018-07-16] MEDS: D5-0.45% NACL WITH KCL 20MEQ/L 1,000 ML IV SCH ×2 (05:54→16:05)
[2018-07-16] MEDS: LEVOTHYROXINE 137 MCG TAB PO SCH (05:54)
[2018-07-16] MEDS: DOCUSATE 100 MG CAP PO SCH ×2 (07:46→21:37)
[2018-07-16] MEDS: FAMOTIDINE 20 MG TAB PO SCH ×2 (07:46→21:38)
[2018-07-16] MEDS: DULoxetine HCL 20 MG CAPSULE.DR PO SCH (07:46)
[2018-07-16] MEDS: PSYLLIUM HUSK 100% 6 GM PACKET PO SCH (07:47)
[2018-07-16] MEDS: LACTATED RINGERS 1,000 ML IV SCH (07:49)
[2018-07-16] MEDS: NICOTINE 7MG/24HR PATCH TRANSDERM SCH (07:54)
[2018-07-16] MEDS: IPRATROPIUM-ALBUTEROL 3 ML NEB INHALATION SCH ×3 (08:24→20:29)
--- NOTE | 2018-07-16 09:55 | P.PN ---
Subjective Progress Note Date: 07/16/18 Principal diagnosis: Left breast cancer Patient developed a rash yesterday evening. Low-grade temp of 100. Feels much better today. No seen within pain currently. She says she reacts to multiple things causing rashes at times. Objective - Vital Signs Vital signs: Vital Signs Temp 98.3 F 07/16/18 07:00 Pulse 86 07/16/18 08:36 Resp 16 07/16/18 07:30 BP 103/54 07/16/18 07:00 Pulse Ox 91 L 07/16/18 07:00 Intake & Output 07/15/18 07/16/18 07/16/18 18:59 06:59 18:59 Intake Total 480 750 Output Total 50 60 Balance 430 690 Intake: Intake, IV Titration 750 Amount D5-0.45% NaCl with KCl 750 20Meq/l 1,000 ml @ 75 mls /hr IV .[id number] JOSH Rx#: [id number] Oral 480 Output: Drainage 50 60 Left Breast 30 15 Left Lateral Chest 10 30 Right breast 10 15 Other: Voiding Method Toilet Toilet Toilet # Voids 3 2 # Bowel Movements 1 - Exam Bilateral chest wall incisions clean and dry, mild rash involving the upper torso - Labs CBC & Chem 7: 07/15/18 06:25 07/15/18 06:25 Assessment and Plan (1) Breast cancer, left Narrative/Plan: Continue Benadryl for rash. Minimize other medication use for possible etiology of rash. Increase activity. Anticipate discharge tomorrow. Current Visit: No Status: Acute Code(s): C50.912 - MALIGNANT NEOPLASM OF UNSPECIFIED SITE OF LEFT FEMALE BREAST SNOMED Code(s): 621556686
[2018-07-16] MEDS: traMADol 50 MG TAB PO PRN ×2 (10:42→17:08)
[2018-07-16 11:32] VITALS: BMI 19.0
[2018-07-16] MEDS: diphenhydrAMINE 50 MG/ML 1 ML VIAL IVP PRN (16:01)
--- NOTE | 2018-07-16 19:46 | PN ---
PROGRESS NOTE DATE OF SERVICE: July 16, 2018. PRESENTING COMPLAINT: Breast surgery. INTERVAL HISTORY: Patient is status post bilateral mastectomy for malignancy. Up in the hallway. Doing better. Tolerating a diet. Breathing is getting better. Pain is controlled. REVIEW OF SYSTEMS: Done for constitutional, cardiovascular, GI, pulmonary and relevant findings as above. CURRENT MEDICATIONS: Reviewed. PHYSICAL EXAMINATION: VITAL SIGNS: Temperature 98.4, pulse 95, respirations 16, blood pressure 106/56. Pulse ox 96 percent on room air. GENERAL APPEARANCE: Comfortable. EYES: Pupils are equal. Conjunctivae normal. NECK: JVD not raised. Mass not palpable. RESPIRATORY: Effort increased. LUNGS: Diminished breath sounds. CARDIOVASCULAR: First and second sounds normal. No edema. ABDOMEN: Soft, nontender. Liver and spleen not palpable. PSYCHIATRY: Alert and oriented times three. Mood and affect slightly anxious appearing. Chest wall dressing in place with . INVESTIGATIONS: No blood work from today. ASSESSMENT: 1. Bilateral breast mastectomy for invasive ductal carcinoma. 2. Acute postoperative blood loss anemia expected from surgery. 3. Chronic obstructive pulmonary disease in a current smoker. 4. Chronic nicotine dependence. Patient is a cigarette smoker. 5. Hypothyroidism. 6. Anxiety and depression, not otherwise specified. 7. Chronic obstructive pulmonary disease in a current smoker. PLAN: Continue current medication and treatment plan. Care was discussed with the patient. MMODL / IJN: [id number] /
--- NOTE | 2018-07-16 19:49 | PN ---
PROGRESS NOTE ADDENDUM: DATE OF SERVICE: July 15, 2018 PLAN: Care was discussed with the patient. Continue current medication and treatment plan. Encouraged to ambulate. MMODL / IJN: [id number] /
[2018-07-17] MEDS: HEPARIN SODIUM,PORCINE 5,000 UNIT/ML 1 ML VIAL SQ SCH ×3 (00:04→17:09)
[2018-07-17] MEDS: KETOROLAC 30 MG/ML 1 ML VIAL IVP SCH ×4 (00:04→17:10)
[2018-07-17] MEDS: D5-0.45% NACL WITH KCL 20MEQ/L 1,000 ML IV SCH (04:43)
[2018-07-17] MEDS: traMADol 50 MG TAB PO PRN ×2 (04:44→11:57)
[2018-07-17] MEDS: LACTATED RINGERS 1,000 ML IV SCH (05:36)
[2018-07-17] MEDS: LEVOTHYROXINE 137 MCG TAB PO SCH (05:37)
[2018-07-17] MEDS: CYCLOBENZAPRINE 10 MG TAB PO SCH ×2 (07:14→15:41)
[2018-07-17] MEDS: FAMOTIDINE 20 MG TAB PO SCH (07:14)
[2018-07-17] MEDS: DOCUSATE 100 MG CAP PO SCH (07:14)
[2018-07-17] MEDS: DULoxetine HCL 20 MG CAPSULE.DR PO SCH (07:15)
[2018-07-17] MEDS: NICOTINE 7MG/24HR PATCH TRANSDERM SCH (07:15)
[2018-07-17] MEDS: PSYLLIUM HUSK 100% 6 GM PACKET PO SCH (07:16)
[2018-07-17] MEDS: IPRATROPIUM-ALBUTEROL 3 ML NEB INHALATION SCH ×2 (08:41→12:39)
[2018-07-17] MEDS ORDERED: diphenhydrAMINE 25 MG CAP PO PRN (08:57)
--- NOTE | 2018-07-17 10:30 | P.DS ---
Addendum entered and electronically signed by Jessie Brand NP-C 07/17/18 14: 46: S/P right breast simple mastectomy and left BREAST ("wrist" dictated below in error) mastectomy with sentinel lymph node biopsy followed by axillary node dissection Original Note: <Jessie Brand - Last Filed: 07/17/18 10:26> Providers Date of admission: 07/16/18 00:47 Expected date of discharge: 07/17/18 Attending physician: Krzysztof Mohan Consults: 07/14/18 12:23 Consult Physician Routine Consulting Provider: Jag Bee Consult Reason/Comments: Medical management Do you want consulting provider notified?: Yes Primary care physician: [facility] Course: 52-year-old female who underwent right breast simple mastectomy and left wrist mastectomy with sentinel lymph node biopsy followed by axillary node dissection due to left breast cancer. Patient is doing well postoperatively. Her vital signs are stable. She is afebrile. Tolerating PO intake. Denies nausea or vomiting. Patient did have a rash while in the hospital, which she reports she has reactions to multiple medications. Her rash has improved. Her pain is controlled with oral pain medications. She is stable for discharge home today. Please see EMR for further hospital course details. DISCHARGE DIAGNOSIS: 1. Left breast cancer 2. S/P right breast simple mastectomy and left wrist mastectomy with sentinel lymph node biopsy followed by axillary node dissection Nurse practitioner note has been reviewed by physician. Signing provider agrees with the documented findings, assessment, and plan of care. Plan - Discharge Summary Discharge Rx Participant: Yes New Discharge Prescriptions: New traMADol HCl [Ultram] 50 mg PO QID PRN #12 tab PRN Reason: Pain No Action Cetirizine HCl [Zyrtec] 10 mg PO DAILY Levothyroxine Sodium [Synthroid] 137 mcg PO DAILY Ibuprofen [Motrin] 800 mg PO Q8H PRN PRN Reason: Pain DULoxetine HCL [Cymbalta] 20 mg PO DAILY Cyclobenzaprine [Flexeril] 10 mg PO TID Sennosides [Senokot] 8.6 mg PO BID PRN PRN Reason: CONSTIPATION Discharge Medication List Cetirizine HCl [Zyrtec] 10 mg PO DAILY 12/25/13 [History] Ibuprofen [Motrin] 800 mg PO Q8H PRN 02/26/16 [History] Levothyroxine Sodium [Synthroid] 137 mcg PO DAILY 02/26/16 [History] DULoxetine HCL [Cymbalta] 20 mg PO DAILY 04/20/18 [History] Cyclobenzaprine [Flexeril] 10 mg PO TID 06/01/18 [History] Sennosides [Senokot] 8.6 mg PO BID PRN 07/11/18 [History] traMADol HCl [Ultram] 50 mg PO QID PRN #12 tab 07/17/18 [Rx] Follow up Appointment(s)/Referral(s): Krzysztof Mohan MD [Medical Doctor] - 07/20/18 10:20 am [facility], [NON-STAFF] - 1 Week Patient Instructions/Handouts: *Surgery [facility] - Scopalamine Patch Instructions, Flako-Conner Drain Care (DC), Flako-Conner Drain Care (GEN) Activity/Diet/Wound Care/Special Instructions: No driving while taking pain medications No lifting over 10 pounds You may shower. No soaking or tub baths Very light activity until you are reevaluated at your follow up appointment with your surgeon Keep of log of DORY drainage. bring to follow up appointment with Dr. Mohan <Krzysztof Mohan - Last Filed: 07/17/18 14:54> - Discharge Diagnosis(es) (1) Breast cancer, left Current Visit: Yes Status: Acute Hospital Course: As above. Patient doing well. Will plan discharge today. Follow-up in 1 week.
[2018-07-17 15:16] VITALS: BP 105/56; PULSE 84; RESP 15; TEMP 97.9
[2018-07-17] MEDS: ACETAMINOPHEN TAB 325 MG TAB PO PRN (15:41)
--- NOTE | 2018-07-18 00:43 | PN ---
PROGRESS NOTE DATE OF SERVICE: 07/17/2018. PRESENTING COMPLAINT: Breast surgery. INTERVAL HISTORY: Patient is status post bilateral mastectomy for cancer. Up and about in the hallway. Overall doing much better, tolerating a diet. Had a bowel movement. Daughter is at the bedside. Breathing is stable. REVIEW OF SYSTEMS: Done for constitutional, cardiovascular, GI, pulmonary; relevant findings as above. CURRENT MEDICATIONS: Reviewed. PHYSICAL EXAMINATION: Temperature 97.9, pulse 84, respiratory rate 15, blood pressure 105/56, pulse ox 94 percent on room air. LUNGS: Improved air entry. CARDIOVASCULAR: First and second sounds normal. NECK: JVD not raised. Mass not palpable. Respiratory effort normal. ABDOMEN: Soft, nontender. Liver and spleen not palpable. PSYCHIATRY: Alert and oriented x3. Mood and affect normal. Chest wall in a dressing. INVESTIGATIONS: No blood work from today. ASSESSMENT: 1. Bilateral breast mastectomy for invasive ductal carcinoma. 2. Acute postop blood loss anemia expected from surgery. 3. Chronic obstructive pulmonary disease in a current smoker. 4. Chronic nicotine dependence, patient is a cigarette smoker. 5. Hypothyroidism. 6. Anxiety and depression, not otherwise specified. PLAN: Care was discussed at length with the patient and daughter at the bedside. Yet again spoke about smoking cessation counseling. The patient will be taking a nicotine patch and also will be giving a prescription for nicotine gum. Also prescribed the patient atropine and albuterol. The patient to follow up with a family doctor upon discharge. Thank you Dr. Mohan. ISSA / ALLIE: [id number] /
== END 2018-07-17 17:48 | disposition home or self-care (01) ==
LOC: OR 07:15 → 4SSUR 12:26 → OR 07-16 00:47
PROVIDERS: ADMIT Surgery; ATTEND Surgery
DX: C50.812 Malignant neoplasm of overlapping sites of left female breast (principal); C77.3 Secondary and unspecified malignant neoplasm of axilla and upper limb lymph nodes; F41.9 Anxiety disorder, unspecified; N60.11 Diffuse cystic mastopathy of right breast; D62 Acute posthemorrhagic anemia; R21 Rash and other nonspecific skin eruption; Z17.0 Estrogen receptor positive status [ER+]; J44.9 Chronic obstructive pulmonary disease, unspecified; E03.9 Hypothyroidism, unspecified; F32.9 Major depressive disorder, single episode, unspecified; F17.210 Nicotine dependence, cigarettes, uncomplicated; Z79.890 Hormone replacement therapy; Z79.899 Other long term (current) drug therapy; Z80.1 Family history of malignant neoplasm of trachea, bronchus and lung; Z90.710 Acquired absence of both cervix and uterus
CPT/HCPCS: 94640 ×7; 97116; 97162; 97165; 80048; 85025; 88342; 88331; 88307; 88309; 88341; 38792; 19307; 19303; G0378 ×2; A9520; S4990 ×4; J2250; J1200 ×3; J1644 ×4; J1100; J2405; J2001; Q9968; J3010; J1885 ×4; J1170 ×2; J0690; J0330; J2704

== ENCOUNTER → 2018-07-28 | Outpatient (CLI) | payer MEDICAID ==
--- NOTE | 2018-07-28 12:31 | US ---
EXAMINATION TYPE: US venous doppler duplex UE RT DATE OF EXAM: 07/28/2018 COMPARISON: CLINICAL HISTORY: R22.31 SWELLING OF RT UPPER LIMB. Hx of port for chemo. Not on blood thinners. No redness . SIDE PERFORMED: Right Grayscale, color doppler, spectral doppler imaging performed of the deep veins of the right upper ext remity. Right Arm: Negative for DVT Port-A-Cath incidentally noted in the internal jugular vein. Visualized portions of the internal jugu lar vein, subclavian, axillary, brachial, radial and ulnar veins show compressibility, there is color flow, normal vascular waveforms. IMPRESSION: No evident deep venous thrombosis within the right upper extremity.
--- NOTE | 2018-07-28 12:33 | US ---
EXAMINATION TYPE: US mass soft tissue chest/back DATE OF EXAM: 07/28/2018 COMPARISON: CLINICAL HISTORY: R22.31 MASS. Hx of bilateral mastectomy. Tube removed yesterday. Right chest appea rs red and warm superior and inferior to incision. Area of concerned scanned. Fluid seen superior and inferior to incision. Largest fluid pocket seen i nferior to incision, with AP measurement of 1.0 cm. Inflammation visualized. IMPRESSION: Fluid collection could be related to seroma, hematoma, correlate to exclude abscess, valerie lulitis. A Red level critical message alert has been initiated for Dago Torres MD via the [facility] Crit ical Results System on 07/28/2018 12:31 PM. This message alert has been sent to Dago Torres MD via the preferences provided by the clinician for the receipt of Radiology Critical Findings. Message ID [id number].
== END ==
LOC: RADUSWWP 10:56
PROVIDERS: ATTEND Internal Medicine Hematology & Oncology
DX: R22.31 Localized swelling, mass and lump, right upper limb (principal)

== ENCOUNTER 2018-07-29 19:37 | Inpatient (IN) | payer MEDICAID ==
[2018-07-29] MEDS ORDERED: HYDROmorphone 1 MG/ML 1 ML SYRINGE IVP STA (20:01)
[2018-07-29] MEDS ORDERED: SODIUM CHLORIDE 0.9% 1,000 ML IV ONE (20:05)
[2018-07-29] MEDS ORDERED: cefTRIAXone IN SWFI 1,000 MG/10 ML SYRINGE IVP STA (20:08)
[2018-07-29] MEDS ORDERED: VANCOMYCIN IV PER PHARMACY 1 EACH MISC MISCELLANE PRN (20:08)
[2018-07-29] MEDS ORDERED: LORazepam 2 MG/ML INJ IV STA (20:23)
[2018-07-29] MEDS ORDERED: VANCOMYCIN 1,000 MG in SODIUM CHLORIDE 0.9% 250 ML IVPB STA (20:24)
[2018-07-29 20:35] LABS: Basophils # (A) 0.1 k/uL (0-0.2); Basophils % (A) 1 %; Eosinophils # (A) 0.3 k/uL (0-0.7); Eosinophils % (A) 4 %; HCT 37.4 % (34.0-46.0); HGB 12.1 gm/dL (11.4-16.0); Lymphocytes % (A) 13 %; MCH 31.7 pg (25.0-35.0); MCHC 32.4 g/dL (31.0-37.0); MCV 97.8 fL (80.0-100.0); Mean Platelet Volume 6.8; Monocytes # (A) 0.4 k/uL (0-1.0); Monocytes % (A) 5 %; Neutrophils # (A) 6.1 k/uL (1.3-7.7); Neutrophils % (A) 76 %; Platelet Count 281 k/uL (150-450); RBC 3.83 m/uL (3.80-5.40); RDW 13.1 % (11.5-15.5)
[2018-07-29 20:46] LABS: ALT 30 U/L (9-52); AST 19 U/L (14-36); Albumin 4.2 g/dL (3.5-5.0); Alkaline Phosphatase 111 U/L (38-126); Anion Gap 12 mmol/L; Blood Urea Nitrogen 14 mg/dL (7-17); Calcium 9.6 mg/dL (8.4-10.2); Carbon Dioxide 26 mmol/L (22-30); Chloride 104 mmol/L (98-107); Glucose 121 mg/dL (74-99); Potassium 3.7 mmol/L (3.5-5.1); Sodium 142 mmol/L (137-145); Total Bilirubin 0.2 mg/dL (0.2-1.3); Total Protein 7.1 g/dL (6.3-8.2)
--- NOTE | 2018-07-29 21:00 | ED ---
General Adult HPI - General Source: patient, RN notes reviewed, old records reviewed Mode of arrival: ambulatory Limitations: no limitations <Luly Cornell - Last Filed: 07/29/18 22:28> <Ryan Davalos - Last Filed: 08/01/18 09:07> - General Chief complaint: Recheck/Abnormal Lab/Rx Stated complaint: Infection Time Seen by Provider: 07/29/18 19:47 - History of Present Illness Initial comments: Patient is a 52-year-old female presents emergency department today with complaints of infection from bilateral mastectomy site. Patient reports she had bilateral mastectomy on July [address] Mohan. Patient states that today when taking a shower she had a stream of purulent drainage coming from bilateral breast tube sites. These were removed on . She was started on Bactrim at that time. She's been taking the antibiotics. She complains of fevers and chills. She denies any nausea or vomiting. (Luly Cornell) - Related Data Home Medications Medication Instructions Recorded Confirmed DULoxetine HCL [Cymbalta] 20 mg PO DAILY 04/20/18 07/29/18 Acetaminophen [Tylenol Extra 1,000 mg PO Q6H PRN 07/29/18 07/29/18 Strength] Doxylamine Succinate [Unisom] 25 mg PO HS 07/29/18 07/29/18 Ibuprofen [Motrin] 800 mg PO BID PRN 07/29/18 07/29/18 Loratadine [Claritin] 10 mg PO DAILY 07/29/18 07/29/18 Sulfamethoxazole/Trimethoprim 1 tab PO BID 07/29/18 07/29/18 [Bactrim DS 800-160 mg] Levothyroxine Sodium [Synthroid] 137 mcg PO DAILY 07/30/18 07/30/18 Nicotine 14Mg/24Hr Patch [Habitrol] 1 patch TRANSDERM DAILY 07/30/18 07/30/18 Allergies Allergy/AdvReac Type Severity Reaction Status Date / Time azithromycin Allergy Rash/Hives Verified 07/29/18 22:48 codeine Allergy Rash/Hives Verified 07/29/18 22:48 codeine phosphate Allergy Rash/Hives Verified 07/29/18 22:48 [From Tylenol-Codeine #3] hydromorphone [From Dilaudid] Allergy Rash/Hives Verified 07/29/18 22:48 Penicillins Allergy Rash/Hives Verified 07/29/18 22:48 silver Allergy Rash/Hives Verified 07/29/18 22:48 [From Tegaderm AG Mesh] tetanus toxoid, adsorbed Allergy Unknown Verified 07/29/18 22:48 Childhood Review of Systems ROS Other: All systems not noted in ROS Statement are negative. <AnetaLuly - Last Filed: 07/29/18 22:28> ROS Other: All systems not noted in ROS Statement are negative. <Ryan Davalos - Last Filed: 08/01/18 09:07> ROS Statement: Those systems with pertinent positive or pertinent negative responses have been documented in the HPI. Past Medical History Past Medical History: Cancer, COPD, Musculoskeletal Disorder, Thyroid Disorder Additional Past Medical History / Comment(s): BACK PAIN, migraines, DX BREAST CANCER- History of Any Multi-Drug Resistant Organisms: None Reported Past Surgical History: Section, Hysterectomy Additional Past Surgical History / Comment(s): C/S x3, BREAST BIOPSY-CORE BIOPSY, PORT A CATH , Past Anesthesia/Blood Transfusion Reactions: No Reported Reaction Past Psychological History: Anxiety, Depression Smoking Status: Current every day smoker Past Alcohol Use History: Rare Past Drug Use History: None Reported - Past Family History Mother Family Medical History: Cancer Additional Family Medical History / Comment(s): lung Brother(s) Family Medical History: Cancer Additional Family Medical History / Comment(s): LYMPH NODE -NECK CANCER <AnetaLuly - Last Filed: 07/29/18 22:28> General Exam Limitations: no limitations General appearance: alert, in no apparent distress Head exam: Present: atraumatic, normocephalic, normal inspection Eye exam: Present: normal appearance, PERRL, EOMI. Absent: scleral icterus, conjunctival injection, periorbital swelling ENT exam: Present: normal exam, mucous membranes moist Neck exam: Present: normal inspection. Absent: tenderness, meningismus, lymphadenopathy Respiratory exam: Present: normal lung sounds bilaterally. Absent: respiratory distress, wheezes, rales, rhonchi, stridor Cardiovascular Exam: Present: regular rate, normal rhythm, normal heart sounds, other (Beckman has evidence of purulent drainage from left breast drain site. Surrounding erythema. Patient is very tender to palpation over the soft tissue.). Absent: systolic murmur, diastolic murmur, rubs, gallop, clicks GI/Abdominal exam: Present: soft, normal bowel sounds. Absent: distended, tenderness, guarding, rebound, rigid Extremities exam: Present: normal inspection, full ROM, normal capillary refill. Absent: tenderness, pedal edema, joint swelling, calf tenderness Back exam: Present: normal inspection Neurological exam: Present: alert, oriented X3, CN II-XII intact Psychiatric exam: Present: normal affect Skin exam: Present: warm, dry, intact, normal color. Absent: rash <Luly Cornell - Last Filed: 07/29/18 22:28> - General Exam Comments Initial Comments: 52-year-old female. Alert and oriented. No distress. (Luly Cornell) Course Vital Signs 07/29/18 07/29/18 07/29/18 19:37 21:27 23:30 Temperature 98.3 F 98 F 98.2 F Pulse Rate 90 81 78 Respiratory 16 16 16 Rate Blood Pressure 112/52 110/48 104/48 O2 Sat by Pulse 99 98 96 Oximetry Medical Decision Making - Lab Data Result diagrams: 07/29/18 20:20 07/29/18 20:20 <Luly Cornell - Last Filed: 07/29/18 22:28> - Lab Data Result diagrams: 07/31/18 07:57 07/31/18 07:57 <Ryan Davalos - Last Filed: 08/01/18 09:07> - Medical Decision Making 52-year-old female presents emergency department today for concerns for infection from surgical site for bilateral vasectomy. This was completed by Dr. Mohan on July 14. At this time Patient reports that she's been on Bactrim for the past 3 days. She continues to have drainage coming from the left breast drainage tube site. Patient was started on Rocephin and vancomycin. Patient will be admitted at this time or Dr. Trammell. Wound culture was completed. (Luly Cornell) Please note that the dictation has a yard laborer error and that it should read mastectomy rather than vasectomy. I saw this patient in conjunction with the physician cafe assistant. I performed independent history and physical exam. Agree with case management. (Ryan Davalos) - Lab Data Lab Results 07/29/18 07/29/18 07/29/18 Range/Units 20:20 20:20 20:20 WBC 8.0 (3.8-10.6) k/uL RBC 3.83 (3.80-5.40) m/uL Hgb 12.1 (11.4-16.0) gm/dL Hct 37.4 (34.0-46.0) % MCV 97.8 (80.0-100.0) fL MCH 31.7 (25.0-35.0) pg MCHC 32.4 (31.0-37.0) g/dL RDW 13.1 (11.5-15.5) % Plt Count 281 (150-450) k/uL Neutrophils % 76 % Lymphocytes % 13 % Monocytes % 5 % Eosinophils % 4 % Basophils % 1 % Neutrophils # 6.1 (1.3-7.7) k/uL Lymphocytes # 1.0 (1.0-4.8) k/uL Monocytes # 0.4 (0-1.0) k/uL Eosinophils # 0.3 (0-0.7) k/uL Basophils # 0.1 (0-0.2) k/uL Sodium 142 (137-145) mmol/L Potassium 3.7 (3.5-5.1) mmol/L Chloride 104 (98-107) mmol/L Carbon Dioxide 26 (22-30) mmol/L Anion Gap 12 mmol/L BUN 14 (7-17) mg/dL Creatinine 0.64 (0.52-1.04) mg/dL Est GFR (CKD-EPI)AfAm >90 (>60 ml/min/1.73 sqM) Est GFR (CKD-EPI)NonAf >90 (>60 ml/min/1.73 sqM) Glucose 121 H (74-99) mg/dL Plasma Lactic Acid Daniel 1.5 (0.7-2.0) mmol/L Calcium 9.6 (8.4-10.2) mg/dL Total Bilirubin 0.2 (0.2-1.3) mg/dL AST 19 (14-36) U/L ALT 30 (9-52) U/L Alkaline Phosphatase 111 (38-126) U/L Total Protein 7.1 (6.3-8.2) g/dL Albumin 4.2 (3.5-5.0) g/dL Disposition Is patient prescribed a controlled substance at d/c from ED?: No Time of Disposition: 22:33 <Luly Cornell - Last Filed: 07/29/18 22:28> <Ryan Davalos - Last Filed: 08/01/18 09:07> Clinical Impression: Surgical site infection, Failure of outpatient treatment Disposition: ADMITTED IP TO THIS HOSP Condition: Stable
[2018-07-29] MEDS ORDERED: NALOXONE 0.4 MG/ML 1 ML VIAL IV PRN (22:34)
[2018-07-29] MEDS ORDERED: ACETAMINOPHEN TAB 325 MG TAB PO PRN (22:34)
[2018-07-29] MEDS ORDERED: ONDANSETRON 4 MG/2 ML VIAL IVP PRN (22:34)
[2018-07-29] MEDS ORDERED: LORazepam 0.5 MG TAB PO PRN (22:34)
[2018-07-30] MEDS: KETOROLAC 30 MG/ML 1 ML VIAL IVP PRN ×4 (00:24→17:38)
[2018-07-30] MEDS ORDERED: PANTOPRAZOLE 40 MG/10 ML VIAL IV SCH (09:00)
[2018-07-30] MEDS: VANCOMYCIN 1,000 MG in SODIUM CHLORIDE 0.9% 250 ML IVPB SCH ×2 (09:05→20:02)
[2018-07-30] MEDS ORDERED: LORazepam 2 MG/ML INJ IV PRN (12:09)
[2018-07-30] MEDS: NICOTINE 14MG/24HR PATCH TRANSDERM SCH (12:32)
--- NOTE | 2018-07-30 12:49 | P.GSHP ---
History of Present Illness H&P Date: 07/30/18 Chief Complaint: Postop infection This a 52-year-old female who underwent recent bilateral mastectomy. Patient states that she had some complaints of redness and swelling in her DORY sites. Her DORY drains were removed earlier this week. Patient had some purulent drainage from the DORY site bilateral. She states that the left DORY site had increased drainage. Patient is also had some chest wall pain. Past Medical History Past Medical History: Cancer, COPD, Musculoskeletal Disorder, Thyroid Disorder Additional Past Medical History / Comment(s): BACK PAIN, migraines, DX BREAST CANCER- History of Any Multi-Drug Resistant Organisms: None Reported Past Surgical History: Section, Hysterectomy Additional Past Surgical History / Comment(s): C/S x3, BREAST BIOPSY-CORE BIOPSY, PORT A CATH , Past Anesthesia/Blood Transfusion Reactions: No Reported Reaction Past Psychological History: Anxiety, Depression Smoking Status: Former smoker Past Alcohol Use History: Rare Additional Past Alcohol Use History / Comment(s): STARTED SMOKING AT AGE 18 SMOKED 1ppd not smoking presently Past Drug Use History: None Reported - Past Family History Mother Family Medical History: Cancer Additional Family Medical History / Comment(s): lung Brother(s) Family Medical History: Cancer Additional Family Medical History / Comment(s): LYMPH NODE -NECK CANCER Medications and Allergies Home Medications Medication Instructions Recorded Confirmed Type DULoxetine HCL [Cymbalta] 20 mg PO DAILY 04/20/18 07/29/18 History Acetaminophen [Tylenol Extra 1,000 mg PO Q6H PRN 07/29/18 07/29/18 History Strength] Doxylamine Succinate [Unisom] 25 mg PO HS 07/29/18 07/29/18 History Ibuprofen [Motrin] 800 mg PO BID PRN 07/29/18 07/29/18 History Loratadine [Claritin] 10 mg PO DAILY 07/29/18 07/29/18 History Sulfamethoxazole/Trimethoprim 1 tab PO BID 07/29/18 07/29/18 History [Bactrim DS 800-160 mg] Levothyroxine Sodium [Synthroid] 137 mcg PO DAILY 07/30/18 07/30/18 History Nicotine 14Mg/24Hr Patch [Habitrol] 1 patch TRANSDERM DAILY 07/30/18 07/30/18 History Allergies Allergy/AdvReac Type Severity Reaction Status Date / Time azithromycin Allergy Rash/Hives Verified 07/29/18 22:48 codeine Allergy Rash/Hives Verified 07/29/18 22:48 codeine phosphate Allergy Rash/Hives Verified 07/29/18 22:48 [From Tylenol-Codeine #3] hydromorphone [From Dilaudid] Allergy Rash/Hives Verified 07/29/18 22:48 Penicillins Allergy Rash/Hives Verified 07/29/18 22:48 silver Allergy Rash/Hives Verified 07/29/18 22:48 [From Tegaderm AG Mesh] tetanus toxoid, adsorbed Allergy Unknown Verified 07/29/18 22:48 Childhood Surgical - Exam Vital Signs Temp Pulse Resp BP Pulse Ox 98.3 F 90 16 112/52 99 07/29/18 19:37 07/29/18 19:37 07/29/18 19:37 07/29/18 19:37 07/29/18 19:37 - General well developed, well nourished, no distress - Eyes PERRL - ENT normal pinna - Neck no masses - Respiratory normal expansion - Cardiovascular Rhythm: regular - Abdomen Abdomen: soft, non tender - Integumentary Cellulitis along lateral left chest wall near the DORY drain site there is some minimal serosanguineous drainage. Results - Labs 07/29/18 20:20 07/29/18 20:20 Abnormal Lab Results - Last 24 Hours (Table) 07/29/18 Range/Units 20:20 Glucose 121 H (74-99) mg/dL Microbiology - Last 24 Hours (Table) 07/29/18 20:20 Wound Culture - Preliminary Axilla - Left Diabetes panel 07/29/18 Range/Units 20:20 Sodium 142 (137-145) mmol/L Potassium 3.7 (3.5-5.1) mmol/L Chloride 104 (98-107) mmol/L Carbon Dioxide 26 (22-30) mmol/L BUN 14 (7-17) mg/dL Creatinine 0.64 (0.52-1.04) mg/dL Glucose 121 H (74-99) mg/dL Calcium 9.6 (8.4-10.2) mg/dL AST 19 (14-36) U/L ALT 30 (9-52) U/L Alkaline Phosphatase 111 (38-126) U/L Total Protein 7.1 (6.3-8.2) g/dL Albumin 4.2 (3.5-5.0) g/dL Calcium panel 07/29/18 Range/Units 20:20 Calcium 9.6 (8.4-10.2) mg/dL Albumin 4.2 (3.5-5.0) g/dL Pituitary panel 07/29/18 Range/Units 20:20 Sodium 142 (137-145) mmol/L Potassium 3.7 (3.5-5.1) mmol/L Chloride 104 (98-107) mmol/L Carbon Dioxide 26 (22-30) mmol/L BUN 14 (7-17) mg/dL Creatinine 0.64 (0.52-1.04) mg/dL Glucose 121 H (74-99) mg/dL Calcium 9.6 (8.4-10.2) mg/dL Adrenal panel 07/29/18 Range/Units 20:20 Sodium 142 (137-145) mmol/L Potassium 3.7 (3.5-5.1) mmol/L Chloride 104 (98-107) mmol/L Carbon Dioxide 26 (22-30) mmol/L BUN 14 (7-17) mg/dL Creatinine 0.64 (0.52-1.04) mg/dL Glucose 121 H (74-99) mg/dL Calcium 9.6 (8.4-10.2) mg/dL Total Bilirubin 0.2 (0.2-1.3) mg/dL AST 19 (14-36) U/L ALT 30 (9-52) U/L Alkaline Phosphatase 111 (38-126) U/L Total Protein 7.1 (6.3-8.2) g/dL Albumin 4.2 (3.5-5.0) g/dL Assessment and Plan Assessment: Postop infection/saline. Patient continue IV antibiotic. She'll be reevaluated by Dr. Bain in the a.m.
--- NOTE | 2018-07-30 15:41 | P.CON ---
Consult Note - . Consult date: 07/30/18 Assessment/Plan:: Reason for consult - management of chronic medical conditions and medication reconciliation. Ms. Broderick Reddy is a 52-year-old female who was recently diagnosed with breast cancer and underwent bilateral mastectomy on July 14 coming in with a chief complaint of redness and swelling at this site where her DORY drains were removed couple of days back. Patient had a DORY tubes removed couple of days back and after that she noticed some pain and redness and swelling on the left side of her chest. Patient's chronic medical conditions include hypothyroidism and depression. Patient's home medications have been reviewed. She takes d uloxetine and levothyroxine and Unisom daily. She has been using Motrin and Tylenol on when necessary basis for her pain. REVIEW OF SYSTEMS: PSYCH: History of anxiety and depression NEURO:No c/o weakness of the extremties, No facial droop, No speech abnormalities. VASCULAR: No swelling of her lower extremities HEMATOLOGIC: No history of easy bleeding and bruising . No recent infections . RESPIRATORY: No cough, No SOB, No chest discomfort. IMMUNE: No infections INTEGUMENT: no rashes OPHTHALMOLOGIC: No blurry vision and no eye discharge : No dysuria or hematuria MEATCUTTER: No bleeding PV CARDIAC: No chest pain , shortness of breath , paroxysmal nocturnal dyspnea MUSCULOSKELETAL : No Aches or pains in the joints or muscles. GI: No abdominal pain, Nausea or vomiting. No constipation or diarrhea. Past Medical History Past Medical History: Cancer, COPD, Musculoskeletal Disorder, Thyroid Disorder Additional Past Medical History / Comment(s): BACK PAIN, migraines, DX BREAST CANCER- History of Any Multi-Drug Resistant Organisms: None Reported Past Surgical History: Section, Hysterectomy Additional Past Surgical History / Comment(s): C/S x3, BREAST BIOPSY-CORE BIOPSY, PORT A CATH , Past Anesthesia/Blood Transfusion Reactions: No Reported Reaction Past Psychological History: Anxiety, Depression Smoking Status: Former smoker Past Alcohol Use History: Rare Additional Past Alcohol Use History / Comment(s): STARTED SMOKING AT AGE 18 SMOKED 1ppd not smoking presently Past Drug Use History: None Reported - Past Family History Mother Family Medical History: Cancer Additional Family Medical History / Comment(s): lung Brother(s) Family Medical History: Cancer Additional Family Medical History / Comment(s): LYMPH NODE -NECK CANCER Medications and Allergies Home Medications Medication Instructions Recorded Confirmed Type DULoxetine HCL [Cymbalta] 20 mg PO DAILY 04/20/18 07/29/18 History Acetaminophen [Tylenol Extra 1,000 mg PO Q6H PRN 07/29/18 07/29/18 History Strength] Doxylamine Succinate [Unisom] 25 mg PO HS 07/29/18 07/29/18 History Ibuprofen [Motrin] 800 mg PO BID PRN 07/29/18 07/29/18 History Loratadine [Claritin] 10 mg PO DAILY 07/29/18 07/29/18 History Sulfamethoxazole/Trimethoprim 1 tab PO BID 07/29/18 07/29/18 History [Bactrim DS 800-160 mg] Levothyroxine Sodium [Synthroid] 137 mcg PO DAILY 07/30/18 07/30/18 History Nicotine 14Mg/24Hr Patch [Habitrol] 1 patch TRANSDERM DAILY 07/30/18 07/30/18 History Allergies Allergy/AdvReac Type Severity Reaction Status Date / Time azithromycin Allergy Rash/Hives Verified 07/29/18 22:48 codeine Allergy Rash/Hives Verified 07/29/18 22:48 codeine phosphate Allergy Rash/Hives Verified 07/29/18 22:48 [From Tylenol-Codeine #3] hydromorphone [From Dilaudid] Allergy Rash/Hives Verified 07/29/18 22:48 Penicillins Allergy Rash/Hives Verified 07/29/18 22:48 silver Allergy Rash/Hives Verified 07/29/18 22:48 [From Tegaderm AG Mesh] tetanus toxoid, adsorbed Allergy Unknown Verified 07/29/18 22:48 Childhood Physical Exam Vitals: Vital Signs Temp Pulse Pulse Pulse Resp BP BP 07/30/18 13:05 97.5 F L 80 16 107/50 07/30/18 05:49 97.8 F 79 16 110/61 07/30/18 00:47 97.5 F L 74 18 131/72 07/30/18 00:00 16 07/29/18 23:30 98.2 F 78 16 104/48 07/29/18 21:27 98 F 81 16 110/48 07/29/18 19:37 98.3 F 90 16 112/52 Pulse Ox 07/30/18 13:05 98 07/30/18 05:49 97 07/30/18 00:47 94 L 07/30/18 00:00 07/29/18 23:30 96 07/29/18 21:27 98 07/29/18 19:37 99 Intake and Output 07/30/18 07/30/18 07/30/18 06:59 14:59 22:59 Intake Total 450 Balance 450 Intake: Oral 450 Other: Voiding Method Toilet # Voids 2 3 GENERAL EXAM GEN. APPEARANCE: alert, in no apparent distress, thin HEAD EXAM: atraumatic, normocephalic, normal inspection EYE EXAM: No pallor. No icterus ENT EXAM: normal exam, mucous membranes moist NECK EXAM: No thyromegaly. RESPIRATORY EXAM: Bilateral breath sounds are positive. No wheezes or crackles. CARDIOVASCULAR EXAM: S1 and S2 heard. GI/ABDOMINAL EXAM: Abdomen is soft nontender. Normal bowel sounds. EXTREMITIES EXAM: No peripheral edema. Chest exam - bilateral mastectomy scars in place . Patient has redness and positive for tenderness on the left side of the chest wall with a small draining abscess. NEUROLOGICAL EXAM: alert, oriented X3, no focal neurological deficits PSYCHIATRIC EXAM: normal affect, normal mood Results CBC & Chem 7: 07/29/18 20:20 07/29/18 20:20 Labs: Abnormal Lab Results - Last 24 Hours (Table) 07/29/18 Range/Units 20:20 Glucose 121 H (74-99) mg/dL Microbiology - Last 24 Hours (Table) 07/29/18 20:20 Gram Stain - Preliminary Axilla - Left Wound Culture - Preliminary Laboratory Results - Last 24 Hours 07/29/18 07/29/18 07/29/18 20:20 20:20 20:20 WBC 8.0 RBC 3.83 Hgb 12.1 Hct 37.4 MCV 97.8 MCH 31.7 MCHC 32.4 RDW 13.1 Plt Count 281 Neutrophils % 76 Lymphocytes % 13 Monocytes % 5 Eosinophils % 4 Basophils % 1 Neutrophils # 6.1 Lymphocytes # 1.0 Monocytes # 0.4 Eosinophils # 0.3 Basophils # 0.1 Sodium 142 Potassium 3.7 Chloride 104 Carbon Dioxide 26 Anion Gap 12 BUN 14 Creatinine 0.64 Est GFR (CKD-EPI)AfAm >90 Est GFR (CKD-EPI)NonAf >90 Glucose 121 H Plasma Lactic Acid Daniel 1.5 Calcium 9.6 Total Bilirubin 0.2 AST 19 ALT 30 Alkaline Phosphatase 111 Total Protein 7.1 Albumin 4.2 ASSESSMENT Chest wall cellulitis - left side History of breast cancer status post bilateral mastectomy on July 14 Hypothyroidism Anxiety with depression Insomnia Nicotine dependence PLAN: Patient has been started on vancomycin and ceftriaxone after cultures from the abscess have been sent. ID Dr. Villarreal has been consulted for antibiotic stewardship. Patient has been restarted on her home medications-levothyroxine, duloxetine. She's been getting tramadol for her pain. GI DVT prophylaxis as per primary care team management. Further determinations to follow depending on the progress of the patient Thank you for allowing us to take part in the management of your patient.
[2018-07-30] MEDS: LEVOTHYROXINE 137 MCG TAB PO SCH (16:15)
[2018-07-30] MEDS: DULoxetine HCL 20 MG CAPSULE.DR PO SCH (16:15)
[2018-07-30] MEDS ORDERED: RX INFO: IV CONTRAST WAS GIVEN 1 EACH MISC MISCELLANE PRN (18:48)
--- NOTE | 2018-07-30 19:27 | CT ---
EXAMINATION TYPE: CT chest w con DATE OF EXAM: 07/30/2018 COMPARISON: 04/21/2018 HISTORY: recent double mastectomy, infection at sugical site on left side. CT DLP: 238.2 mGycm Automated exposure control for dose reduction was used. CONTRAST: CT scan of the chest is performed with IV Contrast, patient injected with 100 mL of Isovue 300. FINDINGS: There is bilateral mastectomies compared to last exam. There is mild pulmonary emphysema on the right side. There is no evidence of a pulmonary mass. There is no pleural effusion. There is minimal subsegmental atelectasis at the left lung base. Heart size i s normal. There is no pericardial effusion. There is no mediastinal adenopathy. There are no hilar ma sses. Thoracic aorta appears normal. There is right-sided central venous catheter noted. There are a few axillary lymph nodes that measure up to 1 cm. I see no pathologic chest wall fluid collection. Th ere is air bubble in the subcutaneous tissues on the left lateral chest. I see no focal bone destruct ion. The thoracic spine is intact. There is no compression fracture. The ribs appear intact. IMPRESSION: Minimal subsegmental atelectasis. No evidence of a chest wall mass. No evidence of absce ss. Surgical clips related to bilateral mastectomy.
[2018-07-30] MEDS: LORazepam 1 MG TAB PO PRN (20:03)
[2018-07-30] MEDS: IBUPROFEN 400 MG TAB PO PRN (20:03)
[2018-07-30] MEDS: DOCUSATE 100 MG CAP PO SCH (20:04)
[2018-07-30] MEDS ORDERED: NON-FORMULARY DRUG (Doxylamine Succinate [Unisom] 25 MG) PO SCH (21:00)
--- NOTE | 2018-07-31 00:12 | CONS ---
CONSULTATION DATE OF SERVICE: 07/30/2018. REASON FOR CONSULTATION: Chest wall/cystic mass and cellulitis. HISTORY OF PRESENT ILLNESS: The patient is a 52-year-old female who is status post left breast mastectomy with a sentinel lymph node biopsy and right breast simple mastectomy. The procedure was performed 06/15/2018. The patient did have bilateral chest tubes after surgery, which apparently were removed by the surgeon on in the office. Patient stated that minimal redness was noticed at the chest tube site on the left side. Hence, the patient was started on oral Bactrim DS to be on the safe side. Yesterday the patient noticed to have purulent drainage from her chest tube site. The patient sent the pictures to her daughter who is a nurse in the ICU. Subsequently patient was advised to go to the ER for further evaluation and management of the same. The patient has been complaining of sharp pain to the bilateral chest area, mostly marked on the left side. Pain to be sharp almost 10/10 in severity, however, has showed improvement with the pain medication she has been receiving. The patient was evaluated by the ER physician. On arrival to the ER, the patient has been afebrile. Her white count was normal. She did have wound cultures obtained as well as blood cultures. The patient was started on vancomycin. Infectious Disease was consulted for further recommendation regarding antibiotic therapy. REVIEW OF SYSTEMS: CONSTITUTIONAL: Positive for weakness and chills. EYES: No complaint. ENT: No complaint. RESPIRATORY: No complaint. CARDIOVASCULAR: No complaint. GENITOURINARY: No complaint. MUSCULOSKELETAL: No deformity. SKIN: As per HPI. PSYCHOLOGICAL: No complaint. ENDOCRINE: No complaint. NEUROLOGICAL: No complaint. PAST MEDICAL HISTORY: COPD, breast cancer. PAST SURGICAL HISTORY: , hysterectomy, bilateral mastectomy. SOCIAL HISTORY: Former smoker. No drug use. FAMILY HISTORY: Mother with history of lung cancer. No history of cancer. ALLERGIES: To multiple medications including PENICILLIN, AZITHROMYCIN, CODEINE. MEDICATION: The patient is currently on Tylenol, Colace, , Motrin, Toradol, ativan, Narcan, nicotine patch, Zofran, Protonix. PHYSICAL EXAMINATION: Blood pressure is 107/58 with a pulse of 80, temperature 97.5. She is 98% on room air. GENERAL DESCRIPTION: A middle-aged female lying in bed in no distress. No tachypnea or accessory muscle of respiration use. HEENT: Shows no pallor or scleral icterus. Oral mucosa is dry. NECK: Trachea central. No thyromegaly. LUNGS: Unlabored breathing. Clear to auscultation anteriorly. No wheeze or crackle. HEART: S1, S2. Regular rate and rhythm. ABDOMEN: Soft, no tenderness. No guarding or rigidity. EXTREMITIES: No edema of the feet. Examination of the bilateral breasts show erythema, wound with slight redness. No purulent drainage was noticed. Tender to touch. NEUROLOGIC: Patient is awake, alert, oriented x3. Mood and affect normal. LABS: Hemoglobin is 12.1, white count 8.0, BUN of 14, creatinine 1.0. Electrolytes level. Cultures are currently pending. DIAGNOSTIC IMPRESSION AND PLAN: Patient with chest wall cellulitis. This patient who did have a recent bilateral mastectomy with cellulitis that apparently has failed to respond to the Bactrim DS therapy. Concern for possible continues possible MRCP, likely pathogen and less likely a gram-negative infection plan. PLAN: A CT of the chest was obtained which showed no evidence of any deep collection in the came back to be negative. We will keep the patient on vancomycin, pharmacy to dose. awaiting for the culture to finalize. Depending upon the clinical response as well as cultures, will adjust the medication further if needed. Thank you for this consultation. Will follow this patient along with you. MMODL / IJN: [id number] /
[2018-07-31] MEDS: KETOROLAC 30 MG/ML 1 ML VIAL IVP PRN ×4 (05:56→22:43)
[2018-07-31] MEDS: LEVOTHYROXINE 137 MCG TAB PO SCH (05:56)
[2018-07-31] MEDS: NICOTINE 14MG/24HR PATCH TRANSDERM SCH (07:48)
[2018-07-31] MEDS: VANCOMYCIN 1,000 MG in SODIUM CHLORIDE 0.9% 250 ML IVPB SCH ×2 (07:48→21:26)
[2018-07-31] MEDS: PANTOPRAZOLE 40 MG TABLET PO SCH (07:48)
[2018-07-31 08:27] LABS: Basophils # (A) 0.1 k/uL (0-0.2); Basophils % (A) 1 %; Eosinophils # (A) 0.4 k/uL (0-0.7); Eosinophils % (A) 6 %; HGB 11.4 gm/dL (11.4-16.0); Lymphocytes % (A) 17 %; MCHC 32.5 g/dL (31.0-37.0); MCV 95.3 fL (80.0-100.0); Mean Platelet Volume 7.7; Monocytes # (A) 0.4 k/uL (0-1.0); Monocytes % (A) 7 %; Neutrophils # (A) 3.7 k/uL (1.3-7.7); Neutrophils % (A) 67 %; Platelet Count 272 k/uL (150-450); RBC 3.67 m/uL (3.80-5.40); RDW 13.2 % (11.5-15.5); WBC 5.6 k/uL (3.8-10.6)
[2018-07-31 08:55] LABS: Anion Gap 7 mmol/L; Blood Urea Nitrogen 16 mg/dL (7-17); Calcium 9.5 mg/dL (8.4-10.2); Carbon Dioxide 25 mmol/L (22-30); Chloride 109 mmol/L (98-107); Glucose 83 mg/dL (74-99); Potassium 4.6 mmol/L (3.5-5.1); Sodium 141 mmol/L (137-145)
[2018-07-31] MEDS: DULoxetine HCL 20 MG CAPSULE.DR PO SCH (09:31)
[2018-07-31] MEDS: IBUPROFEN 400 MG TAB PO PRN (09:31)
[2018-07-31 11:21] VITALS: BMI 19.0
--- NOTE | 2018-07-31 12:09 | P.CONS ---
History of Present Illness - Reason for Consult Consult date: 07/31/18 Breast Cancer Requesting physician: Luly Cornell - Chief Complaint Infection at surgical site - History of Present Illness Ms. Hollins is a pleasant female patient of Dr. Benjamin who in November 2017 presented to her PCP with complaints of abnormality in the central area of left breast, which appeared to quickly worsen over days-weeks. Mammogram 12/14/18 - revealed extremely dense breasts and elongated dense tissue in the breast which was consistent with multiple ill defined masses felt to be suspicious. In the Left Breast multiple masses were noted on ultrasound. There was both non- suspicious lesions, cystic appearing lesions, and solid masses which appeared to connect and extend over a 5.2cm area from 8:00-12:00 o clock. Biopsies were taken and resulted with invasive moderately differentiated ductal carcinoma, grade 2. ER/IL Positive and HER2/yulisa Negative. There was associated DCIS also found. Sub-centimeter lung nodules were also noted ZENIA, RML, RLL (all less than 5mm). PET scan was completed and did not show concern for metastatic disease. Hysterectomy 2013, Hormone levels FSH/LH in Post-Menopausal range, although Estriadial high. Family History Maternal Grandmother - Breast, Maternal Uncle = Prostate, Brother = Lymphoma Treatment Course consisted of: Magan-adjuvant Dose Dense AC on 03/09/18 x4 cycles, followed by 4 cycles of Dose Dense Taxol x4, she completed chemotherapy on 06/15/18. She proceeded to surgery for bilateral mastectomy on 07/14/18. Right Breast benigh, left with multifocal tumor, totalling 5cm. 16 Lymph nodes sampled, of the 16 nodes one was positive micromets and one positive for isolated tumor cells. She was seen in office on 07/27/18 and complained of tenderness and swelling right anterior axillary fold, Bactrim was prescribed. Drains from surgery were removed 07/27/18. She now presents to [facility] for complaints post operative infection at mastectomy site, not improved on outpatient antibiotics. She has remained afebr ile since admission. Infectious disease has been consulted as well as surgery. Review of Systems A 14 point review of systems assessed and completed and all negative except HPI Past Medical History Past Medical History: Cancer, COPD, Musculoskeletal Disorder, Thyroid Disorder Additional Past Medical History / Comment(s): BACK PAIN, migraines, DX BREAST CANCER- History of Any Multi-Drug Resistant Organisms: None Reported Past Surgical History: Section, Hysterectomy Additional Past Surgical History / Comment(s): C/S x3, BREAST BIOPSY-CORE BIOPSY, PORT A CATH , Past Anesthesia/Blood Transfusion Reactions: No Reported Reaction Past Psychological History: Anxiety, Depression Smoking Status: Former smoker Past Alcohol Use History: Rare Additional Past Alcohol Use History / Comment(s): STARTED SMOKING AT AGE 18 SMOKED 1ppd not smoking presently Past Drug Use History: None Reported - Past Family History Mother Family Medical History: Cancer Additional Family Medical History / Comment(s): lung Brother(s) Family Medical History: Cancer Additional Family Medical History / Comment(s): LYMPH NODE -NECK CANCER Medications and Allergies Home Medications Medication Instructions Recorded Confirmed Type DULoxetine HCL [Cymbalta] 20 mg PO DAILY 04/20/18 07/29/18 History Acetaminophen [Tylenol Extra 1,000 mg PO Q6H PRN 07/29/18 07/29/18 History Strength] Doxylamine Succinate [Unisom] 25 mg PO HS 07/29/18 07/29/18 History Ibuprofen [Motrin] 800 mg PO BID PRN 07/29/18 07/29/18 History Loratadine [Claritin] 10 mg PO DAILY 07/29/18 07/29/18 History Sulfamethoxazole/Trimethoprim 1 tab PO BID 07/29/18 07/29/18 History [Bactrim DS 800-160 mg] Levothyroxine Sodium [Synthroid] 137 mcg PO DAILY 07/30/18 07/30/18 History Nicotine 14Mg/24Hr Patch [Habitrol] 1 patch TRANSDERM DAILY 07/30/18 07/30/18 History Allergies Allergy/AdvReac Type Severity Reaction Status Date / Time azithromycin Allergy Rash/Hives Verified 07/29/18 22:48 codeine Allergy Rash/Hives Verified 07/29/18 22:48 codeine phosphate Allergy Rash/Hives Verified 07/29/18 22:48 [From Tylenol-Codeine #3] hydromorphone [From Dilaudid] Allergy Rash/Hives Verified 07/29/18 22:48 Penicillins Allergy Rash/Hives Verified 07/29/18 22:48 silver Allergy Rash/Hives Verified 07/29/18 22:48 [From Tegaderm AG Mesh] tetanus toxoid, adsorbed Allergy Unknown Verified 07/29/18 22:48 Childhood Physical Exam Vitals: Vital Signs Temp Pulse Pulse Resp BP Pulse Ox 07/31/18 08:00 70 74 16 07/31/18 05:00 97.8 F 70 16 93/54 96 07/30/18 21:00 98 F 72 18 96/55 96 07/30/18 15:34 16 07/30/18 13:05 97.5 F L 80 16 107/50 98 Intake and Output 07/30/18 07/31/18 07/31/18 22:59 06:59 14:59 Other: Voiding Method Toilet # Voids 2 Weight 53.524 kg Gen: Alert and Oriented, No acute Distress Head: NC, NT Neck: Supple, no palpable adenopathy Mouth: Dry, Lips cracked Lungs: Diminished at bases, no increased respiratory effort noted Heart: RRR, S1s2 Abdomen: Soft, Non-distended, Non-tender Extremity: No edema, Skin/Breast Site: Erythema and edma over the fold of mastectomy site, warmth. Results CBC & Chem 7: 07/31/18 07:57 07/31/18 07:57 Labs: Abnormal Lab Results - Last 24 Hours (Table) 07/31/18 07/31/18 Range/Units 07:57 07:57 RBC 3.67 L (3.80-5.40) m/uL Chloride 109 H (98-107) mmol/L Microbiology - Last 24 Hours (Table) 07/29/18 20:20 Gram Stain - Preliminary Axilla - Left Wound Culture - Preliminary Presumptive Staph aureus 07/29/18 20:20 Blood Culture - Preliminary Blood No Growth after [address] scan - chest: report reviewed Assessment and Plan (1) Failure of outpatient treatment Current Visit: Yes Status: Acute Code(s): Z78.9 - OTHER SPECIFIED HEALTH STATUS SNOMED Code(s): 786177294 (2) Surgical site infection Current Visit: Yes Status: Acute Code(s): T81.49XA - INFECTION FOLLOWING A PROCEDURE, OTHER SURGICAL SITE, INIT SNOMED Code(s): 92211842 (3) Breast cancer, left Current Visit: No Status: Acute Code(s): C50.912 - MALIGNANT NEOPLASM OF UN SPECIFIED SITE OF LEFT FEMALE BREAST SNOMED Code(s): 604819387 Plan: Assessment and Recommendations: 1. Moderately Differentiated, Invasive Ductal Left Breast Cancer: - Estrogen, Progesterone Positive, [id number] neg - Status Post magan-adjuvant Chemotherapy with DD AC-T (02/2018-06/15/2018) - Status Post Bilateral Mastectomy with 16-Nodes assessed (1+micromet, 1+isolated tumor cells) - Will plan on Radiation to lymph node beds and possible mastectomy chest wall (per Radiation Onc) - Will Plan for Aromatase Inhibitor 10 years - Will follow-up in office after recovered for continuation of treatment plan. 2. Post-Operative Site Tenderness, Erythema, and Edema: Concern for post- operative infection - CT scan read and no sign of abscess formation - Afebrile since admission - Bactrim as outpatient without improvement - Infectious disease following, IV abx given. - Surgery is following Physician Attes: I have discussed the completed history and physical and developed the full impression and plan, agree with dictation by Brie Zavaleta NP. Dictated as a scribe.
--- NOTE | 2018-07-31 12:33 | P.PN ---
<Jessie Brand - Last Filed: 07/31/18 12:26> Subjective Progress Note Date: 07/31/18 CHIEF COMPLAINT: left breast/chest wall cellulitis HISTORY OF PRESENT ILLNESS: Patient examined at the bedside. She complains of pain to left chest wall. Reports only being able to sleep on right side due to pain. CT of the chest was performed without evidence of abscess. Wound culture is positive for presumptive staph aureus. Blood cultures are negative at 24 hour lele. Infectious disease is following. PHYSICAL EXAM: VITAL SIGNS: Reviewed. GENERAL: Well-developed in no acute distress. HEENT: No sclera icterus. Extraocular movements grossly intact. Moist buccal mucosa. Head is atraumatic, normocephalic. CHEST: Right side DORY site with scab present. Healing well. Left side DORY site with small amount of purulent drainage. Erythema present above DORY site. Area is very tender and painful with soft palpation. ABDOMEN: Soft. Nondistended. Nontender. NEUROLOGIC: Alert and oriented. Cranial nerves II through XII grossly intact. ASSESSMENT: 1. Left chest wall cellulitis, s/p bilateral mastectomy PLAN: 1. Continue IV antibiotics per ID. Await cultures to finalize. 2. Patient concerned about her IV access as her IV has gone bad a few times already and multiple times during previous admission. If patients IV goes subcu and unable to obtain new peripheral access, nursing may access port per Dr. Mohan Nurse practitioner note has been reviewed by physician. Signing provider agrees with the documented findings, assessment, and plan of care. Objective - Vital Signs Vital signs: Vital Signs Temp 98 F 07/31/18 12:05 Pulse 69 07/31/18 12:05 Resp 20 07/31/18 12:05 BP 108/58 07/31/18 12:05 Pulse Ox 97 07/31/18 12:05 Intake & Output 07/30/18 07/31/18 07/31/18 18:59 06:59 18:59 Weight 53.524 kg Other: Voiding Method Toilet # Voids 3 2 - Labs CBC & Chem 7: 07/31/18 07:57 07/31/18 07:57 Labs: Abnormal Lab Results - Last 24 Hours (Table) 07/31/18 07/31/18 Range/Units 07:57 07:57 RBC 3.67 L (3.80-5.40) m/uL Chloride 109 H (98-107) mmol/L Microbiology - Last 24 Hours (Table) 07/29/18 20:20 Gram Stain - Preliminary Axilla - Left Wound Culture - Preliminary Presumptive Staph aureus 07/29/18 20:20 Blood Culture - Preliminary Blood No Growth after 24 hours <Krzysztof Mohan - Last Filed: 07/31/18 15:52> Subjective As above. Patient doing well today. When she was in the office there was an area of redness around the right sided chest wall DORY drain site. Ironically the patient presented to the ER on Tuesday evening because of some purulent fluid coming out of the left chest wall DORY drain exit site. Doing much better at this time. Afebrile. White blood cell count normal. Cultures showed presumptive staph aureus. Home when cleared by infectious disease. Objective - Vital Signs Vital signs: Vital Signs Temp 98 F 07/31/18 12:05 Pulse 69 07/31/18 12:05 Resp 20 07/31/18 12:05 BP 108/58 07/31/18 12:05 Pulse Ox 97 07/31/18 12:05 Intake & Output 07/30/18 07/31/18 07/31/18 18:59 06:59 18:59 Weight 53.524 kg Other: Voiding Method Toilet # Voids 3 2 - Labs CBC & Chem 7: 07/31/18 07:57 07/31/18 07:57 Labs: Abnormal Lab Results - Last 24 Hours (Table) 07/31/18 07/31/18 Range/Units 07:57 07:57 RBC 3.67 L (3.80-5.40) m/uL Chloride 109 H (98-107) mmol/L Microbiology - Last 24 Hours (Table) 07/29/18 20:20 Gram Stain - Preliminary Axilla - Left Wound Culture - Preliminary Presumptive Staph aureus 07/29/18 20:20 Blood Culture - Preliminary Blood No Growth after 24 hours
--- NOTE | 2018-07-31 16:55 | PN ---
PROGRESS NOTE DATE OF SERVICE: 07/31/2018 REASON FOR FOLLOWUP: Left mastectomy site cellulitis. INTERVAL HISTORY: The patient is currently afebrile. Patient continues to complain of pain to the left lower chest wall area. No further drainage has been noted. Denies any shortness of breath or cough. No abdominal pain or any diarrhea. PHYSICAL EXAMINATION: Blood pressure 108/58 with pulse 59, temperature 98, she is 97% on room air. General description is a middle-aged female up in the bed in no distress. Respiratory system: Unlabored breathing with decreased breath sounds at the bases. No wheeze. Heart S1, S2. Regular rate and rhythm. Examination of the left mastectomy site incision with minimal redness on the lateral side and the previous DORY drainage site, but no drainage was noticed. LABS: Hemoglobin 11.4, white count 5.6. Culture is showing presumptive Staph aureus. Blood cultures have been negative. CT was negative for any abscess. DIAGNOSTIC IMPRESSION AND PLAN: Patient with mastectomy site cellulitis/possible small abscess, status post spontaneous drainage as the CT did not show any new fluid collection that could be drained. The patient at this time covered with IV vancomycin, will be continued while awaiting for the sensitivity to finalize on the Staph aureus. Family present at bedside. Their questions were answered. MMODL / IJN: [id number] /
[2018-07-31] MEDS ORDERED: VANCOMYCIN TROUGH DUE 1 EACH MISC MISCELLANE ONE (20:00)
[2018-07-31] MEDS: DOCUSATE 100 MG CAP PO SCH (20:23)
[2018-08-01] MEDS: KETOROLAC 30 MG/ML 1 ML VIAL IVP PRN ×3 (05:45→18:25)
[2018-08-01] MEDS: LEVOTHYROXINE 137 MCG TAB PO SCH (06:17)
[2018-08-01] MEDS: VANCOMYCIN 1,000 MG in SODIUM CHLORIDE 0.9% 250 ML IVPB SCH (09:25)
[2018-08-01] MEDS: DULoxetine HCL 20 MG CAPSULE.DR PO SCH (09:26)
[2018-08-01] MEDS: NICOTINE 14MG/24HR PATCH TRANSDERM SCH (09:26)
[2018-08-01] MEDS: PANTOPRAZOLE 40 MG TABLET PO SCH (09:26)
--- NOTE | 2018-08-01 10:41 | CONS ---
CONSULTATION DATE OF SERVICE: 07/31/2018 REASON FOR CONSULTATION: Medical management requested by Dr. Mohan. CONSULTATION: This is a pleasant 52-year-old patient who was recently discharged from the hospital, follows with Dr. Jean. The patient was diagnosed to have left breast cancer in the form of invasive moderately differentiated ductal carcinoma, ER positive and MT positive and HER2 negative. The patient is status post bilateral mastectomy on July 14 with axillary node dissection on the left side. The patient was discharged home on drainage tubes. Four days ago, the tubes were discontinued by Dr. Mohan in the office and 2 days ago patient started draining, also started having chills. Appetite has been good. Had bowel movements. The patient other chronic stable medical conditions include COPD, hypothyroid, depression. The patient did get chemotherapy by Dr. Torres. The patient is started on IV vancomycin. REVIEW OF SYSTEMS: CONSTITUTIONAL: Chills. HEENT: None. RESPIRATORY: Wheezing and cough, much improved. CARDIOVASCULAR: None. GASTROINTESTINAL: None. GENITOURINARY: None. MUSCULOSKELETAL: Chronic low back pain. DERMATOLOGICAL: As above. HEMATOLOGICAL: None. LYMPHATICS: None. PSYCHIATRY: Anxiety, depression present. NEUROLOGICAL: None. PAST MEDICAL HISTORY: COPD, hypothyroid, anxiety, depression, invasive ductal carcinoma, moderately differentiated from the left breast . PAST SURGICAL HISTORY: , hysterectomy, bilateral mastectomy. PSYCH HISTORY: Anxiety, depression. SOCIAL HISTORY: Patient smoked for 34 years about a pack a day, stopped 2 weeks ago. Lives with her son. 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 FAMILY HISTORY: Family history of cancer. HOME MEDICATIONS: 1. Bactrim DS 1 tablet p.o. b.i.d. 2. Nicotine 14 patch. 3. Claritin 10 mg p.o. daily. 4. Synthroid 137 mcg a day. 5. Motrin 800 mg b.i.d. p.r.n. 6. Unisom 25 mcg q.h.s. 7. Cymbalta 20 mg p.o. daily. 8. Tylenol p.r.n. ALLERGIES: Allergies to AZITHROMYCIN, CODEINE, DILAUDID, PENICILLIN, SILVER, TETANUS. PHYSICAL EXAMINATION: On examination, vital signs on presentation, temperature 98.3 pulse 90, respiration 16, blood pressure 112/52, pulse ox 99% on room air. GENERAL APPEARANCE: Thin built, sitting up, awake. EYES: Pupils equal. Conjunctivae normal. HENT: Alopecia. Oral cavity normal. NECK: JVD not raised. Mass not palpable. RESPIRATORY: Effort normal. LUNGS: Slightly decreased breath sounds. CARDIOVASCULAR: First and second sounds normal. No edema. ABDOMEN: Soft, nontender. Liver and spleen not palpable. LYMPHATIC: No lymph node palpable in the neck and axillae. PSYCHIATRY: Alert and oriented x3. Mood and affect slightly anxious appearing. NEUROLOGICAL: Pupils equal. Cranial nerves grossly intact. Power and sensation grossly intact. DERMATOLOGICAL: Incision on both sides healing well. There is a significant area of tenderness at the left chest wall below the incision, questionable fluctuation. INVESTIGATIONS: White count 5.6, hemoglobin 11.4. Potassium 4.6. CT scan of the chest shows there is a bubble in the subcutaneous tissue on the left lateral chest. No obvious abscess reported. ASSESSMENT: 1. Bilateral infection possible of the subcutaneous tissue on both sides of the area of the DORY drain, questionable area of subcutaneous abscess on the left chest wall. Will have surgery evaluate the same. Growing Staph aureus. 2. Chronic obstructive pulmonary disease in an ex-smoker. 3. Hypothyroidism. 4. Anxiety, depression, not otherwise specified. PLAN: Home medications are resumed. Care was discussed with the patient and daughter at the bedside. The patient is on vancomycin. Await culture results. Blood cultures also pending. Thank you Dr. Mohan. ISSA / ALLIE: [id number] /
--- NOTE | 2018-08-01 15:00 | P.PN ---
<Jessie Brand - Last Filed: 08/01/18 14:57> Subjective Progress Note Date: 08/01/18 CHIEF COMPLAINT: left breast/chest wall cellulitis HISTORY OF PRESENT ILLNESS: Patient examined at the bedside. Patient reports her pain has improved today. Wound culture positive for MSSA. Spoke with Dr. Villarreal regarding antibiotics. Patient to receive Cefazolin today and if she tolerates that, she will likely be discharged home tomorrow on Keflex per Dr. Villarreal. PHYSICAL EXAM: VITAL SIGNS: Reviewed. GENERAL: Well-developed in no acute distress. HEENT: No sclera icterus. Extraocular movements grossly intact. Moist buccal mucosa. Head is atraumatic, normocephalic. CHEST: Right side DORY site with scab present. Healing well. Left side DORY site with small scab present. No purulent drainage today. Erythema improving. Minimal tenderness to area. ABDOMEN: Soft. Nondistended. Nontender. NEUROLOGIC: Alert and oriented. Cranial nerves II through XII grossly intact. ASSESSMENT: 1. Left chest wall cellulitis, s/p bilateral mastectomy PLAN: Continue antibiotics per Dr. Villarreal. Likely discharge home tomorrow Nurse practitioner note has been reviewed by physician. Signing provider agrees with the documented findings, assessment, and plan of care. Objective - Vital Signs Vital signs: Vital Signs Temp 97.7 F 08/01/18 12:04 Pulse 81 08/01/18 12:04 Resp 20 08/01/18 12:04 BP 121/61 08/01/18 12:04 Pulse Ox 97 08/01/18 12:04 Intake & Output 07/31/18 08/01/18 08/01/18 18:59 06:59 18:59 Intake Total 450 250 250 Balance 450 250 250 Weight 53.524 kg Intake: Intake, IV Titration 250 Amount Vancomycin 1,000 mg In 250 Sodium Chloride 0.9% 250 ml @ 125 mls/hr IVPB Q12HR [facility] Rx#:[id number] Oral 450 250 Other: Voiding Method Toilet Toilet Toilet # Voids 2 1 - Labs CBC & Chem 7: 07/31/18 07:57 07/31/18 07:57 Labs: Microbiology - Last 24 Hours (Table) 07/29/18 20:20 Gram Stain - Final Axilla - Left Wound Culture - Final Staphylococcus aureus 07/29/18 20:20 Blood Culture - Preliminary Blood No Growth after 48 hours <Krzysztof Mohan - Last Filed: 08/01/18 17:57> Subjective As above. Patient doing well today. Pain is improved. Cultures noted. Anticipate discharge tomorrow. Objective - Vital Signs Vital signs: Vital Signs Temp 97.7 F 08/01/18 12:04 Pulse 81 08/01/18 12:04 Resp 20 08/01/18 12:04 BP 121/61 08/01/18 12:04 Pulse Ox 97 08/01/18 12:04 Intake & Output 07/31/18 08/01/18 08/01/18 18:59 06:59 18:59 Intake Total 450 250 250 Balance 450 250 250 Weight 53.524 kg Intake: Intake, IV Titration 250 Amount Vancomycin 1,000 mg In 250 Sodium Chloride 0.9% 250 ml @ 125 mls/hr IVPB Q12HR [facility] Rx#:[id number] Oral 450 250 Other: Voiding Method Toilet Toilet Toilet # Voids 2 1 - Labs CBC & Chem 7: 07/31/18 07:57 07/31/18 07:57 Labs: Microbiology - Last 24 Hours (Table) 07/29/18 20:20 Gram Stain - Final Axilla - Left Wound Culture - Final Staphylococcus aureus 07/29/18 20:20 Blood Culture - Preliminary Blood No Growth after 48 hours
[2018-08-01] MEDS: ceFAZolin IN SWFI 2 GM/20 ML SYRINGE IVP SCH ×2 (16:37→23:32)
[2018-08-01] MEDS: DOCUSATE 100 MG CAP PO SCH (20:25)
[2018-08-01] MEDS: LORazepam 1 MG TAB PO PRN (21:03)
[2018-08-02] MEDS: KETOROLAC 30 MG/ML 1 ML VIAL IVP PRN (00:43)
--- NOTE | 2018-08-02 05:56 | PN ---
PROGRESS NOTE DATE OF SERVICE: 08/01/2018 PRESENTING COMPLAINT: Chest wall infection. INTERVAL HISTORY: Patient is status post bilateral mastectomy with infection at the chest tube DORY drain sites. Doing better. Pain is better controlled. Tolerating a diet. Less drainage on antibiotics. REVIEW OF SYSTEMS: Done for constitutional, cardiovascular, GI, pulmonary; relevant findings as above. CURRENT MEDICATIONS: Current medications are reviewed that include IV Ancef. PHYSICAL EXAMINATION: On examination, temperature 97.7 pulse 81, respiration 20, blood pressure 121/61, pulse ox 97% on room air. GENERAL APPEARANCE: Lying in bed, comfortable. EYES: Pupils equal. Conjunctivae normal. NECK: JVD not raised. Mass not palpable. RESPIRATORY: Effort normal. LUNGS: Decreased breath sounds. CARDIOVASCULAR: First and second sounds normal. No edema. ABDOMEN: Soft, nontender. Liver and spleen not palpable. CHEST WALL: Slight drainage at the incision site where the drains were present. No INVESTIGATIONS: Vanco levels noted. Gram stain is growing MSSA. ASSESSMENT: 1. Bilateral infection at the DORY drain site, growing MSSA. 2. Chronic obstructive pulmonary disease in an ex-smoker. 3. Hypothyroidism. 4. Anxiety, depression, not otherwise specified. PLAN: Doing much better. Patient switched to IV Ancef. Care was discussed with the patient. MMODL / IJN: [id number] /
--- NOTE | 2018-08-02 06:12 | PN ---
PROGRESS NOTE DATE OF SERVICE: 08/01/2018. REASON FOR FOLLOWUP: Left mastectomy site cellulitis. INTERVAL HISTORY: The patient is currently afebrile. The patient is breathing comfortably. The patient pain to the chest wall site has improved. Overall her drainage has resolved. Denies having any shortness of breath. No abdominal pain. No diarrhea. PHYSICAL EXAMINATION: On examination, blood pressure is 107/56, pulse of 71, temperature 97.6. She is 100% on room air. General description is a middle-aged female up in the bed in no distress. EXAMINATION OF THE MASTECTOMY SITE: Overall redness has slightly decreased. No drainage was noticed. LUNGS: Unlabored breathing, clear to auscultation. HEART: S1, S2. Regular rate and rhythm. ABDOMEN: Soft. No tenderness. LABS: No new labs have been obtained today. Cultures obtained from the patient shows MSSA. Blood culture has been negative. DIAGNOSTIC IMPRESSION AND PLAN: Patient with left mastectomy site cellulitis with minimal drainage. Culture with MSSA. The patient did have PENICILLIN allergy with rash. No history of anaphylaxis. Vancomycin discontinued. Patient started on cefazolin 2 grams q.8, which the patient continued to tolerate and continued to improve to finish therapy with oral Keflex 500 mg t.i.d. for another 10 days. Plan of care discussed with the daughter as well as surgeon. Questions answered. MMODL / LEONELN: [id number] /
[2018-08-02] MEDS: LEVOTHYROXINE 137 MCG TAB PO SCH (06:19)
[2018-08-02] MEDS: NICOTINE 14MG/24HR PATCH TRANSDERM SCH (09:22)
[2018-08-02] MEDS: ceFAZolin IN SWFI 2 GM/20 ML SYRINGE IVP SCH (09:22)
[2018-08-02] MEDS: DULoxetine HCL 20 MG CAPSULE.DR PO SCH (09:22)
[2018-08-02] MEDS: PANTOPRAZOLE 40 MG TABLET PO SCH (09:22)
[2018-08-02 10:04] LABS: Anion Gap 7 mmol/L; Blood Urea Nitrogen 18 mg/dL (7-17); Calcium 9.4 mg/dL (8.4-10.2); Carbon Dioxide 27 mmol/L (22-30); Chloride 107 mmol/L (98-107); Glucose 79 mg/dL (74-99); Potassium 4.4 mmol/L (3.5-5.1); Sodium 141 mmol/L (137-145)
[2018-08-02 11:48] VITALS: BP 135/68; PULSE 82; RESP 18; TEMP 98
--- NOTE | 2018-08-02 13:00 | PN ---
PROGRESS NOTE DATE OF SERVICE: 08/02/2018 REASON FOR FOLLOWUP: Bilateral bacteremia mastectomy site, cellulitis, MSSA. INTERVAL HISTORY: The patient is afebrile. The patient is breathing comfortably. The patient has tolerated cefazolin without any problem. Overall pain. swelling, redness to the chest wall has decreased. No drainage. No chest pain. No abdominal pain, no diarrhea. PHYSICAL EXAMINATION: Blood pressure 135/68 with a pulse of 82, temperature 98, she is 97% on room air. General description is a middle-aged female, up in the bed in no distress. RESPIRATORY SYSTEM: Unlabored breathing, clear to auscultation anteriorly. HEART: S1, S2. Regular rate and rhythm. ABDOMEN: Soft, no tenderness. LABS: BUN of 18, creatinine 0.52. Wound culture with Staph aureus, MSSA. Blood culture has been negative. DIAGNOSTIC IMPRESSION AND PLAN: Patient with a other mastectomy site cellulitis, culture with methicillin-susceptible Staphylococcus aureus. Currently being on Cefazolin, though will be transitioned to Keflex 500 mg t.i.d. for another 10 days. Prescription sent to the Pharmacy. Close outpatient followup. Questions were answered. MMODL / IJN: [id number] /
--- NOTE | 2018-08-02 13:43 | P.DS ---
<Jessie Brand A - Last Filed: 08/02/18 13:40> Providers Expected date of discharge: 08/02/18 Hospital Course: 52-year-old female who underwent recent bilateral mastectomy was admitted to the hospital secondary to left chest wall cellulitis. Infectious disease was consulted to evaluate patient during hospitalization. Patient was placed on IV antibiotics. Wound culture positive for MSSA. Purulent drainage and erythema of left chest wall have improved. Area less tender as well. Patient is stable for discharge home today on Keflex per ID recommendations. Please see EMR for further hospital course details. Discharge Diagnosis: 1. Left chest wall cellulitis, s/p bilateral mastectomy Nurse practitioner note has been reviewed by physician. Signing provider agrees with the documented findings, assessment, and plan of care. Patient Condition at Discharge: Stable Plan - Discharge Summary Discharge Rx Participant: Yes New Discharge Prescriptions: New Cephalexin [Keflex] 500 mg PO Q6HR #40 cap Nicotine 14Mg/24Hr Patch [Habitrol] 1 patch TRANSDERM DAILY #30 patch Discontinued Sulfamethoxazole/Trimethoprim [Bactrim DS 800-160 mg] 1 tab PO BID No Action DULoxetine HCL [Cymbalta] 20 mg PO DAILY Ibuprofen [Motrin] 800 mg PO BID PRN PRN Reason: Pain Doxylamine Succinate [Unisom] 25 mg PO HS Acetaminophen [Tylenol Extra Strength] 1,000 mg PO Q6H PRN PRN Reason: Pain Loratadine [Claritin] 10 mg PO DAILY Nicotine 14Mg/24Hr Patch [Habitrol] 1 patch TRANSDERM DAILY Levothyroxine Sodium [Synthroid] 137 mcg PO DAILY Discharge Medication List DULoxetine HCL [Cymbalta] 20 mg PO DAILY 04/20/18 [History] Acetaminophen [Tylenol Extra Strength] 1,000 mg PO Q6H PRN 07/29/18 [History] Doxylamine Succinate [Unisom] 25 mg PO HS 07/29/18 [History] Ibuprofen [Motrin] 800 mg PO BID PRN 07/29/18 [History] Loratadine [Claritin] 10 mg PO DAILY 07/29/18 [History] Levothyroxine Sodium [Synthroid] 137 mcg PO DAILY 07/30/18 [History] Nicotine 14Mg/24Hr Patch [Habitrol] 1 patch TRANSDERM DAILY 07/30/18 [History] Cephalexin [Keflex] 500 mg PO Q6HR #40 cap 08/02/18 [Rx] Nicotine 14Mg/24Hr Patch [Habitrol] 1 patch TRANSDERM DAILY #30 patch 08/02/18 [Rx] Follow up Appointment(s)/Referral(s): Krzysztof Mohan MD [Medical Doctor] - 08/03/18 10:40 am Kvng Jean MD [Primary Care Provider] - 1-2 days (office closed patient to call for follow up appointment) [facility], [NON-STAFF] - Sara Villarreal MD [STAFF PHYSICIAN] - 08/08/18 2:00 pm Patient Instructions/Handouts: Cephalexin (By mouth), Nicotine (Absorbed through the skin), Surgical Site Infections (DC) Activity/Diet/Wound Care/Special Instructions: Activity as tolerated Diet as tolerated Discharge Disposition: HOME SELF-CARE <Krzysztof Mohan - Last Filed: 08/02/18 18:34> Providers Date of admission: 07/30/18 11:36 Attending physician: Krzysztof Mohan Consults: 07/29/18 22:34 Consult Physician Stat Consulting Provider: Dago Torres Consult Reason/Comments: Breast Ca, Surgical Site infection Do you want consulting provider notified?: Yes 07/30/18 12:51 Consult Physician Routine Consulting Provider: Jag Bee Consult Reason/Comments: Medical management Do you want consulting provider notified?: Yes 07/30/18 12:56 Consult Physician Routine Consulting Provider: Sara Villarreal Consult Reason/Comments: cellulitis Do you want consulting provider notified?: Yes Primary care physician: Kvng Acosta [facility] Course: As above. Patient discharge prior to my arrival. I did speak with her by phone this afternoon and she is doing well. Continue outpatient antibiotics per infectious disease. Patient will follow-up in the outpatient setting.
--- NOTE | 2018-08-02 17:12 | P.PN ---
Subjective Progress Note Date: 08/02/18 Principal diagnosis: Breast cancer Post Operative Infection Afebrile, doing better, planning to go home today. Objective - Vital Signs Vital signs: Vital Signs Temp 98 F 08/02/18 05:00 Pulse 82 08/02/18 05:00 Resp 18 08/02/18 05:00 BP 135/68 08/02/18 05:00 Pulse Ox 97 08/02/18 05:00 Intake & Output 08/01/18 08/02/18 08/02/18 18:59 06:59 18:59 Intake Total 250 240 Balance 250 240 Intake: IV 240 ns@20 240 Intake, IV Titration 250 Amount Vancomycin 1,000 mg In 250 Sodium Chloride 0.9% 250 ml @ 125 mls/hr IVPB Q12HR [facility] Rx#:[id number] Other: Voiding Method Toilet Toilet - Exam en: Alert and Oriented, No acute Distress Head: NC, NT Neck: Supple, no palpable adenopathy Mouth: Dry, Lips cracked Lungs: Diminished at bases, no increased respiratory effort noted Heart: RRR, S1s2 Abdomen: Soft, Non-distended, Non-tender Extremity: No edema, Skin/Breast Site: Erythema and edma over the fold of mastectomy site, warmth - Labs CBC & Chem 7: 07/31/18 07:57 08/02/18 08:42 Labs: Abnormal Lab Results - Last 24 Hours (Table) 08/02/18 Range/Units 08:42 BUN 18 H (7-17) mg/dL Microbiology - Last 24 Hours (Table) 07/29/18 20:20 Blood Culture - Preliminary Blood No Growth after 72 hours Assessment and Plan (1) Failure of outpatient treatment Status: Acute Code(s): Z78.9 - OTHER SPECIFIED HEALTH STATUS SNOMED Code(s): 393657105 (2) Surgical site infection Status: Acute Code(s): T81.49XA - INFECTION FOLLOWING A PROCEDURE, OTHER SURGICAL SITE, INIT SNOMED Code(s): 35686527 (3) Breast cancer, left Status: Acute Code(s): C50.912 - MALIGNANT NEOPLASM OF UNSPECIFIED SITE OF LEFT FEMALE BREAST SNOMED Code(s): 519953811 Plan: Assessment and Recommendations: 1. Moderately Differentiated, Invasive Ductal Left Breast Cancer: - Estrogen, Progesterone Positive, [id number] neg - Status Post siena-adjuvant Chemotherapy with DD AC-T (02/2018-06/15/2018) - Status Post Bilateral Mastectomy with 16-Nodes assessed (1+micromet, 1+isolated tumor cells) - Will plan on Radiation to lymph node beds and possible mastectomy chest wall (per Radiation Onc) - Will Plan for Aromatase Inhibitor 10 years - Will follow-up in office after recovered for continuation of treatment plan. 2. Post-Operative Site Tenderness, Erythema, and Edema: Concern for post- operative infection - CT scan read and no sign of abscess formation - Afebrile since admission - Bactrim as outpatient without improvement - Infectious disease following, IV abx given. - Surgery is following Agree with Discharge, ok from Onc Standpoint and follow-up as regulary scheduled Physician Attes: I have discussed the completed history and physical and de veloped the full impression and plan, agree with dictation by Brie Zavaleta NP. Dictated as a scribe.
--- NOTE | 2018-08-03 00:12 | PN ---
PROGRESS NOTE DATE OF SERVICE: 08/02/2018 PRESENTING COMPLAINT: Chest wall infection. INTERVAL HISTORY: Patient is status post recent bilateral mastectomy with infection of the chest tube site. Cultures growing MSSA. Overall doing much better. Breathing is stable. Tolerating a diet. Antibiotics per ID. REVIEW OF SYSTEMS: Done for constitutional, cardiovascular, GI, pulmonary and relevant findings as above. Minimal secretions from chest tube site. PHYSICAL EXAMINATION: VITAL SIGNS: Temperature 98, pulse 82, respiratory 18, blood pressure 135/64, pulse ox 97% on room air. GENERAL APPEARANCE: Sitting up, comfortable. EYES: Pupils normal. Conjunctivae normal. NECK: JVD not raised. Mass not palpable. RESPIRATORY: Effort normal. LUNGS: Slightly decreased breath sounds. CARDIOVASCULAR: 1st and 2nd heart sounds normal. No edema. ABDOMEN: Soft, nontender. Liver and spleen not palpable. PSYCHIATRY: Alert and oriented x3. Mood and affect normal. Chest wall site healing well. Minimal tenderness. INVESTIGATIONS: Potassium 4.4. ASSESSMENT: 1. Bilateral infection of DORY drains, site growing MSSA with significant improvement. 2. Chronic obstructive pulmonary disease in an ex smoker. 3. Hypothyroidism. 4. Anxiety and depression not otherwise specified. PLAN: Care was discussed with the patient. Antibiotics per Dr. Villarreal. Patient being sent home on Keflex. MMODL / IJN: [id number] /
== END 2018-08-02 13:10 | disposition home or self-care (01) | DRG 863 ==
LOC: EC 19:37 → 3NMEDONC 22:20 → OBSVTOIN 07-30 11:36
PROVIDERS: ADMIT Surgery; ATTEND Surgery
DX: T81.41XA Infection following a procedure, superficial incisional surgical site, initial encounter (principal); L03.313 Cellulitis of chest wall; C50.912 Malignant neoplasm of unspecified site of left female breast; J44.9 Chronic obstructive pulmonary disease, unspecified; B95.61 Methicillin susceptible Staphylococcus aureus infection as the cause of diseases classified elsewhere; R21 Rash and other nonspecific skin eruption; F41.8 Other specified anxiety disorders; E03.9 Hypothyroidism, unspecified; G47.00 Insomnia, unspecified; G43.909 Migraine, unspecified, not intractable, without status migrainosus; T36.0X5A Adverse effect of penicillins, initial encounter; Z79.899 Other long term (current) drug therapy; Z79.890 Hormone replacement therapy; Z90.710 Acquired absence of both cervix and uterus; Z87.891 Personal history of nicotine dependence; Z17.0 Estrogen receptor positive status [ER+]; Z90.13 Acquired absence of bilateral breasts and nipples; Z88.1 Allergy status to other antibiotic agents; Z88.5 Allergy status to narcotic agent; Z88.0 Allergy status to penicillin; Z88.7 Allergy status to serum and vaccine; Z88.8 Allergy status to other drugs, medicaments and biological substances; Z80.1 Family history of malignant neoplasm of trachea, bronchus and lung; Z80.8 Family history of malignant neoplasm of other organs or systems; Z80.7 Family history of other malignant neoplasms of lymphoid, hematopoietic and related tissues
CPT/HCPCS: 36415; 71260; 80048; 80053; 80202; 83605; 85025; 87040; 87070; 87077; 87186; 87205; 96365; 96366; 96375; 99284

== ENCOUNTER → 2018-08-22 | Outpatient (CLI) | payer MEDICAID | LOC: LABWHC1 09:26 | PROVIDERS: ATTEND Internal Medicine Endocrinology, Diabetes & Metabolism | DX: E03.8 Other specified hypothyroidism (principal) | CPT/HCPCS: 36415; 84443 ==

== ENCOUNTER → 2018-10-02 | Outpatient (CLI) | payer MEDICAID ==
--- NOTE | 2018-10-02 10:42 | MR ---
EXAMINATION TYPE: MR shoulder LT wo con DATE OF EXAM: 10/02/2018 COMPARISON: RIGHT shoulder x-rays dated 09/26/2018 HISTORY: left shoulder pain TECHNIQUE: Multiplanar, multisequence imaging of the left shoulder is performed without contrast. FINDINGS: Rotator Cuff: There is moderate supraspinatus tendinopathy, more pronounced of the anterior insertion al fibers with alteration of the intrinsic signal. There is mild infraspinatus tendinopathy. Bursal s urface fraying is seen of both the supraspinatus and infraspinatus fibers. The teres minor and subsca pularis are unremarkable in signal and morphology. Acromioclavicular Joint: There is moderate acromial clavicular arthropathy with slight downsloping of the distal acromion and small inferior projecting osteophyte of the acromion creating mild internal impingement of the supraspinatus without signal alteration of the supraspinatus at this level. Glenohumeral Joint: There is mild to moderate glenohumeral arthropathy with joint space narrowing, marin bchondral irregularity and heterogeneity and small osteophytes. Additionally there are small osseous cysts of the humeral head in the greater tuberosity. Labrum: The labrum appears grossly intact given limitation of non-arthrogram study. Biceps Tendon: The long head of biceps is in normal location within bicipital groove. There is mild a ttenuation of the intra-articular portion of the biceps tendon Bone marrow signal: No focal abnormal marrow signal is appreciated. Other: There is a small amount of fluid in the subdeltoid/subacromial bursa and subcoracoid bursa. IMPRESSION: 1. No evidence of rotator cuff tear however there is moderate supraspinatus tendinosis and mild infra spinatus tendinosis with bursal surface fiber fraying. There is also internal impingement of the supr aspinatus by downward projecting osteophyte from the acromion and slight downsloping of the acromion in addition to moderate acromioclavicular arthropathy. 2. Mild interarticular portion biceps tendinosis. 3. Small amount of fluid in the subdeltoid/subacromial bursa and subcoracoid bursa that may clinicall y correlate with bursitis. 4. [id number] glenohumeral humeral arthropathy.
== END | disposition home or self-care (01) ==
LOC: RADMRIMAIN 08:03
PROVIDERS: ATTEND Orthopaedic Surgery
DX: M19.012 Primary osteoarthritis, left shoulder (principal); M67.814 Other specified disorders of tendon, left shoulder; M25.812 Other specified joint disorders, left shoulder

== ENCOUNTER 2018-10-09 14:40 | Emergency (ER) | payer MEDICAID, OTHER ==
[2018-10-09] MEDS ORDERED: ONDANSETRON 4 MG/2 ML VIAL IVP STA (15:21)
[2018-10-09] MEDS ORDERED: SODIUM CHLORIDE 0.9% 2,000 ML IV STA (15:21)
[2018-10-09 16:00] LABS: Basophils % (A) 1 %; Eosinophils # (A) 0.1 k/uL (0-0.7); Eosinophils % (A) 4 %; HCT 41.7 % (34.0-46.0); Lymphocytes # (A) 0.6 k/uL (1.0-4.8); Lymphocytes % (A) 17 %; MCH 28.1 pg (25.0-35.0); MCHC 33.5 g/dL (31.0-37.0); Mean Platelet Volume 7.3; Monocytes # (A) 0.2 k/uL (0-1.0); Monocytes % (A) 6 %; Neutrophils # (A) 2.7 k/uL (1.3-7.7); Neutrophils % (A) 71 %; Platelet Count 246 k/uL (150-450); RBC 4.97 m/uL (3.80-5.40); RDW 14.2 % (11.5-15.5); WBC 3.7 k/uL (3.8-10.6)
[2018-10-09 16:21] LABS: ALT 15 U/L (9-52); AST 14 U/L (14-36); Albumin 4.4 g/dL (3.5-5.0); Alkaline Phosphatase 103 U/L (38-126); Amylase 48 U/L (30-110); Anion Gap 6 mmol/L; Blood Urea Nitrogen 8 mg/dL (7-17); Carbon Dioxide 26 mmol/L (22-30); Chloride 109 mmol/L (98-107); Glucose 85 mg/dL (74-99); Lipase 51 U/L (23-300); Potassium 3.7 mmol/L (3.5-5.1); Sodium 141 mmol/L (137-145); Total Bilirubin 0.3 mg/dL (0.2-1.3); Total Protein 7.2 g/dL (6.3-8.2)
--- NOTE | 2018-10-09 16:24 | XR ---
EXAMINATION TYPE: XR chest 2V DATE OF EXAM: 10/09/2018 COMPARISON: Prior chest x-ray 02/23/2018 HISTORY: Syncope, pain TECHNIQUE: Frontal and lateral views of the chest are obtained. FINDINGS: Port-A-Cath is stable position. There are overlying cardiac leads. Prominent lung volume ma y be indicative of underlying COPD. There is no focal air space opacity, pleural effusion, or pneumot horax seen. The cardiac silhouette size is within normal limits. The osseous structures are intact . IMPRESSION: No acute cardiopulmonary process.
--- NOTE | 2018-10-09 16:25 | ED ---
Nausea/Vomiting/Diarrhea HPI - General Chief complaint: Nausea/Vomiting/Diarrhea Stated complaint: Nausea, Vomiting-CA Pt Time Seen by Provider: 10/09/18 15:21 Source: patient, RN notes reviewed, old records reviewed Mode of arrival: ambulatory Limitations: no limitations - History of Present Illness Initial comments: Patient is a 52-year-old female presents emergency department today for evaluation for nausea vomiting, episodes of diarrhea for the past 3 days. Patient states that she has no specific abdominal pain. She is currently undergoing radiation treatment for left-sided breast cancer. She has noticed chemotherapy and had a mastectomy earlier this year. Patient states she has no chest pain or shortness breath. She did report slight cough today. She denies any fevers or chills. - Related Data Home Medications Medication Instructions Recorded Confirmed DULoxetine HCL [Cymbalta] 20 mg PO DAILY 04/20/18 07/29/18 Acetaminophen [Tylenol Extra 1,000 mg PO Q6H PRN 07/29/18 07/29/18 Strength] Doxylamine Succinate [Unisom] 25 mg PO HS 07/29/18 07/29/18 Ibuprofen [Motrin] 800 mg PO BID PRN 07/29/18 07/29/18 Loratadine [Claritin] 10 mg PO DAILY 07/29/18 07/29/18 Levothyroxine Sodium [Synthroid] 137 mcg PO DAILY 07/30/18 07/30/18 Nicotine 14Mg/24Hr Patch [Habitrol] 1 patch TRANSDERM DAILY 07/30/18 07/30/18 Previous Rx's Medication Instructions Recorded Cephalexin [Keflex] 500 mg PO Q6HR #40 cap 08/02/18 Nicotine 14Mg/24Hr Patch [Habitrol] 1 patch TRANSDERM DAILY #30 patch 08/02/18 Ondansetron Odt [Zofran Odt] 4 mg PO Q8HR PRN #12 tab 10/09/18 Allergies Allergy/AdvReac Type Severity Reaction Status Date / Time azithromycin Allergy Rash/Hives Verified 07/29/18 22:48 codeine Allergy Rash/Hives Verified 07/29/18 22:48 codeine phosphate Allergy Rash/Hives Verified 07/29/18 22:48 [From Tylenol-Codeine #3] hydromorphone [From Dilaudid] Allergy Rash/Hives Verified 07/29/18 22:48 Penicillins Allergy Rash/Hives Verified 07/29/18 22:48 silver Allergy Rash/Hives Verified 07/29/18 22:48 [From [employer] Mesh] tetanus toxoid, adsorbed Allergy Unknown Verified 07/29/18 22:48 Childhood Review of Systems ROS Statement: Those systems with pertinent positive or pertinent negative responses have been documented in the HPI. ROS Other: All systems not noted in ROS Statement are negative. Past Medical History Past Medical History: Cancer, COPD, Musculoskeletal Disorder, Thyroid Disorder Additional Past Medical History / Comment(s): BACK PAIN, migraines, DX BREAST CANCER- History of Any Multi-Drug Resistant Organisms: None Reported Past Surgical History: Section, Hysterectomy Additional Past Surgical History / Comment(s): C/S x3, BREAST BIOPSY-CORE BIOPSY, PORT A CATH , Past Anesthesia/Blood Transfusion Reactions: No Reported Reaction Past Psychological History: Anxiety, Depression Smoking Status: Former smoker Past Alcohol Use History: Rare Past Drug Use History: None Reported - Past Family History Mother Family Medical History: Cancer Additional Family Medical History / Comment(s): lung Brother(s) Family Medical History: Cancer Additional Family Medical History / Comment(s): LYMPH NODE -NECK CANCER General Exam - General Exam Comments Initial Comments: 52-year-old female. Alert and oriented. No significant distress. Limitations: no limitations General appearance: alert, in no apparent distress Head exam: Present: atraumatic, normocephalic, normal inspection Eye exam: Present: normal appearance, PERRL, EOMI. Absent: scleral icterus, conjunctival injection, periorbital swelling ENT exam: Present: normal exam, mucous membranes moist, other Neck exam: Present: normal inspection. Absent: tenderness, meningismus, lymphadenopathy Respiratory exam: Present: normal lung sounds bilaterally, other ( 1st burn over L breast from radiation treatment. ). Absent: respiratory distress, wheezes, rales, rhonchi, stridor Cardiovascular Exam: Present: regular rate GI/Abdominal exam: Present: soft, normal bowel sounds. Absent: distended, tenderness, guarding, rebound, rigid Extremities exam: Present: normal inspection, full ROM, normal capillary refill. Absent: tenderness, pedal edema, joint swelling, calf tenderness Back exam: Present: normal inspection Neurological exam: Present: alert, oriented X3, CN II-XII intact Psychiatric exam: Present: normal affect, normal mood Course Vital Signs 10/09/18 10/09/18 10/09/18 14:53 15:30 16:00 Temperature 98.2 F Pulse Rate 90 67 71 Respiratory 18 14 16 Rate Blood Pressure 126/66 114/69 109/65 O2 Sat by Pulse 97 Oximetry Medical Decision Making - Medical Decision Making This is a 52-year-old female process restarted nausea vomiting for the past 3 days. She said some episodes of diarrhea. No abdominal tenderness. She is going Radiation treatment. Blood work was reviewed. Mild neutropenia, white blood cell count 2.7. Patient was given 2 L bolus I's were normal. With her history of cough and chest x-ray completed negative for any acute process. Patient likely is viral gastroenteritis. And reoperation given a mild headache was given Toradol. Discussed Patient will be discharged at this time with nausea medicine, and advised appropriate follow up PCP. - Lab Data Result diagrams: 10/09/18 15:35 10/09/18 15:35 Lab Results 10/09/18 10/09/18 Range/Units 15:35 15:35 WBC 3.7 L (3.8-10.6) k/uL RBC 4.97 (3.80-5.40) m/uL Hgb 14.0 (11.4-16.0) gm/dL Hct 41.7 (34.0-46.0) % MCV 84.0 (80.0-100.0) fL MCH 28.1 (25.0-35.0) pg MCHC 33.5 (31.0-37.0) g/dL RDW 14.2 (11.5-15.5) % Plt Count 246 (150-450) k/uL Neutrophils % 71 % Lymphocytes % 17 % Monocytes % 6 % Eosinophils % 4 % Basophils % 1 % Neutrophils # 2.7 (1.3-7.7) k/uL Lymphocytes # 0.6 L (1.0-4.8) k/uL Monocytes # 0.2 (0-1.0) k/uL Eosinophils # 0.1 (0-0.7) k/uL Basophils # 0.0 (0-0.2) k/uL Sodium 141 (137-145) mmol/L Potassium 3.7 (3.5-5.1) mmol/L Chloride 109 H (98-107) mmol/L Carbon Dioxide 26 (22-30) mmol/L Anion Gap 6 mmol/L BUN 8 (7-17) mg/dL Creatinine 0.51 L (0.52-1.04) mg/dL Est GFR (CKD-EPI)AfAm >90 (>60 ml/min/1.73 sqM) Est GFR (CKD-EPI)NonAf >90 (>60 ml/min/1.73 sqM) Glucose 85 (74-99) mg/dL Calcium 10.0 (8.4-10.2) mg/dL Total Bilirubin 0.3 (0.2-1.3) mg/dL AST 14 (14-36) U/L ALT 15 (9-52) U/L Alkaline Phosphatase 103 (38-126) U/L Total Protein 7.2 (6.3-8.2) g/dL Albumin 4.4 (3.5-5.0) g/dL Amylase 48 (30-110) U/L Lipase 51 (23-300) U/L Disposition Clinical Impression: Nausea & vomiting, Diarrhea Disposition: HOME SELF-CARE Condition: Good Instructions (If sedation given, give patient instructions): Gastroenteritis (ED) Additional Instructions: Patient advised to alternate Motrin and Tylenol for pains, take nausea medicine as prescribed. Return to the emergency department if any alarming signs or symptoms occur. Prescriptions: Ondansetron Odt [Zofran Odt] 4 mg PO Q8HR PRN #12 tab PRN Reason: Nausea Is patient prescribed a controlled substance at d/c from ED?: No Referrals: Kvng Jean MD [Primary Care Provider] - 1-2 days Time of Disposition: 17:03
[2018-10-09] MEDS ORDERED: KETOROLAC 30 MG/ML 1 ML VIAL IVP STA (16:42)
[2018-10-09 18:24] VITALS: BP 116/59; PULSE 70; RESP 18; TEMP 98.3
== END 2018-10-09 18:56 | disposition home or self-care (01) ==
LOC: EC 14:40
DX: R11.2 Nausea with vomiting, unspecified (principal); R19.7 Diarrhea, unspecified; R05 Cough; D70.9 Neutropenia, unspecified; C50.912 Malignant neoplasm of unspecified site of left female breast; E07.9 Disorder of thyroid, unspecified; F32.9 Major depressive disorder, single episode, unspecified; F41.9 Anxiety disorder, unspecified; Z87.891 Personal history of nicotine dependence; Z79.890 Hormone replacement therapy; Z79.899 Other long term (current) drug therapy; Z88.5 Allergy status to narcotic agent; Z88.0 Allergy status to penicillin; Z88.1 Allergy status to other antibiotic agents; Z88.7 Allergy status to serum and vaccine; Z88.8 Allergy status to other drugs, medicaments and biological substances; Z91.048 Other nonmedicinal substance allergy status
CPT/HCPCS: 36415; 80053; 82150; 83690; 85025; 71046; 99284; 96374; 96375 ×2; 96361 ×3; J2405; J1642; J1885

== ENCOUNTER → 2018-10-11 | Outpatient (CLI) | payer OTHER ==
--- NOTE | 2018-10-11 22:43 | MR ---
EXAMINATION TYPE: MR brain wo/w con DATE OF EXAM: 10/11/2018 COMPARISON: Prior MRI brain August 22, 2015 HISTORY: Headaches, Hx of Breast Ca TECHNIQUE: Multiplanar, multisequence images of the brain and brainstem is performed without and with IV contras t, utilizing 5.5 mL intravenous Gadavist . FINDINGS: Diffusion weighted images demonstrate no evidence of a recent infarct or other diffusion ab normality. There is no worrisome extra-axial fluid collection. The ventricular system and cisternal spaces are normal in size and appearance. The brain volume is age appropriate. There are scattered foci of T2 hyperintensity seen throughout the white matter bilaterally. Approximately 20 scattered le sions are seen with some progression from 2016 MRI. Midline structures demonstrate normal morphology. The craniocervical junction appears within normal limits. Post contrast images demonstrate no abnormal enhancement. The dural venous sinuses appear pa tent. The visualized sinuses are clear and the globes are intact. IMPRESSION: [id number] nonspecific white matter changes with some progression from prior MRI ma y reflect sequela of altered vascular mechanics related to product of migraine headaches. No new susp icious enhancing intraparenchymal masses are present to suggest metastatic disease.
== END | disposition home or self-care (01) ==
LOC: RADMRIMAIN 19:40
PROVIDERS: ATTEND Radiology Radiation Oncology
DX: R90.89 Other abnormal findings on diagnostic imaging of central nervous system (principal); C50.112 Malignant neoplasm of central portion of left female breast; C77.9 Secondary and unspecified malignant neoplasm of lymph node, unspecified; Z17.0 Estrogen receptor positive status [ER+]
CPT/HCPCS: 70553; A9585

== ENCOUNTER → 2018-10-24 | Outpatient (CLI) | payer OTHER | LOC: LABWHC1 12:10 | PROVIDERS: ATTEND Internal Medicine Endocrinology, Diabetes & Metabolism | DX: E03.8 Other specified hypothyroidism (principal) | CPT/HCPCS: 36415; 84443 ==

== ENCOUNTER 2018-11-12 09:52 | Emergency (ER) | payer MEDICAID, OTHER ==
[2018-11-12] MEDS ORDERED: KETOROLAC 30 MG/ML 1 ML VIAL IM STA (10:15)
--- NOTE | 2018-11-12 10:19 | ED ---
General Adult HPI - General Chief complaint: Head Injury Stated complaint: fall Time Seen by Provider: 11/12/18 10:07 Source: patient Mode of arrival: ambulatory Limitations: no limitations - History of Present Illness Initial comments: Patient is a 53-year-old female presenting to emergency Department after fall. Patient reports walking on the patio when she tripped over a step and fell forward. Patient reports attempting to brace her fall with her hands. Patient reports hitting her face upon impact but denies loss of consciousness at time of incident. Patient reports a laceration on her lower lip and nasal pain. Patient reports minor bleeding from the right nostril that started a few minutes after the incident. Patient also reports pain in her left shoulder but states that she had a previous rotator cuff tear that she is scheduled to have it repaired in 1 month. Patient reports that prior to she was unable to abduct her left arm above 90. Patient is not on blood thinners. Patient denies taking medication to alleviate the pain. Patient denies headache, nausea, vomiting, chest pain or chest tightness. Patient is unaware of her tetanus status. - Related Data Home Medications Medication Instructions Recorded Confirmed Acetaminophen [Tylenol Extra 1,000 mg PO Q6H PRN 07/29/18 11/12/18 Strength] Doxylamine Succinate [Unisom] 25 mg PO HS 07/29/18 11/12/18 Ibuprofen [Motrin] 800 mg PO BID PRN 07/29/18 11/12/18 Levothyroxine Sodium [Synthroid] 137 mcg PO DAILY 07/30/18 11/12/18 Allergies Allergy/AdvReac Type Severity Reaction Status Date / Time azithromycin Allergy Rash/Hives Verified 11/12/18 10:30 codeine Allergy Rash/Hives Verified 11/12/18 10:30 codeine phosphate Allergy Rash/Hives Verified 11/12/18 10:30 [From Tylenol-Codeine #3] hydromorphone [From Dilaudid] Allergy Rash/Hives Verified 11/12/18 10:30 Penicillins Allergy Rash/Hives Verified 11/12/18 10:30 silver Allergy Rash/Hives Verified 11/12/18 10:30 [From Tegaderm AG Mesh] tetanus toxoid, adsorbed Allergy Unknown Verified 11/12/18 10:30 Childhood Review of Systems ROS Statement: Those systems with pertinent positive or pertinent negative responses have been documented in the HPI. ROS Other: All systems not noted in ROS Statement are negative. Past Medical History Past Medical History: Cancer, COPD, Musculoskeletal Disorder, Thyroid Disorder Additional Past Medical History / Comment(s): BACK PAIN, migraines, DX BREAST CANCER- History of Any Multi-Drug Resistant Organisms: None Reported Past Surgical History: Section, Hysterectomy Additional Past Surgical History / Comment(s): C/S x3, BREAST BIOPSY-CORE BIO PSY, PORT A CATH , Past Anesthesia/Blood Transfusion Reactions: No Reported Reaction Past Psychological History: Anxiety, Depression Smoking Status: Former smoker Past Alcohol Use History: Rare Past Drug Use History: None Reported - Past Family History Mother Family Medical History: Cancer Additional Family Medical History / Comment(s): lung Brother(s) Family Medical History: Cancer Additional Family Medical History / Comment(s): LYMPH NODE -NECK CANCER General Exam Limitations: no limitations General appearance: alert, in no apparent distress Head exam: Present: normocephalic, normal inspection. Absent: atraumatic (Minor abrasion on nose) Eye exam: Present: normal appearance, PERRL, EOMI Pupils: Present: normal accommodation ENT exam: Present: normal exam, mucous membranes moist, TM's normal bilaterally, normal external ear exam, other (No hemotympanum, raccoon eyes or Vásquez sign.). Absent: normal oropharynx (1 cm laceration on the lower lip. No lacerations, bleeding or tooth fractures noted in the oral cavity.) Neck exam: Present: normal inspection, full ROM. Absent: lymphadenopathy Respiratory exam: Present: normal lung sounds bilaterally Cardiovascular Exam: Present: regular rate, normal rhythm, normal heart sounds Extremities exam: Present: normal inspection. Absent: full ROM (Limited range of motion above 90 due to previous rotator cuff tear. No bony deformities on bilateral shoulder joints.) Back exam: Present: normal inspection, full ROM Neurological exam: Present: alert, oriented X3 Psychiatric exam: Present: normal affect, normal mood Skin exam: Present: warm, intact, normal color Course Vital Signs 11/12/18 09:57 Temperature 98.4 F Pulse Rate 87 Respiratory 16 Rate Blood Pressure 108/57 O2 Sat by Pulse 99 Oximetry Procedures - Laceration Laceration #1 Consent Obtained: verbal consent Indication: laceration Site: lip Size (cm): 1 Description: linear Depth: simple, single layer Anesthetic Used: lidocaine 1% Anesthesia Technique: nerve block Amount (mls): 5 Pre-repair: irrigated extensively Type of Sutures: nylon Size of Sutures: 4-0 Number of Sutures: 3 Technique: simple, interrupted Patient Tolerated Procedure: well Medical Decision Making - Medical Decision Making Patient is a 53-year-old female presents emergency department after fall. Lip laceration was repaired with 3 sutures. No tetanus prophylaxis was administered. X-ray of nasal bones is negative for acute fracture or dislocations. Strict return parameters were thoroughly discussed with patient was understandable and agreeable. Case discussed with physician. Disposition Clinical Impression: Fall, Laceration Disposition: HOME SELF-CARE Condition: Stable Instructions (If sedation given, give patient instructions): Care For Your Stitches (DC), Laceration (DC) Additional Instructions: Please follow proper wound care instructions. Please return to emergency department for suture removal in 3-5 days or sooner if symptoms worsen. Please follow up with primary care. Is patient prescribed a controlled substance at d/c from ED?: No Referrals: Kvng Jean MD [Primary Care Provider] - 1-2 days Time of Disposition: 11:46
[2018-11-12] MEDS ORDERED: LIDOCAINE 1% INJ 10MG/ML (20 ML MDV) SQ ONE (10:31)
--- NOTE | 2018-11-12 10:32 | XR ---
EXAMINATION TYPE: XR nasal bone , 3 VIEWS DATE OF EXAM ORDERED: 11/12/2018 HISTORY: Pain. COMPARISON: None. FINDINGS: No nasal fracture is seen. The septum is deviated slightly towards the right. IMPRESSION: NO ACUTE OSSEOUS LESION.
[2018-11-12 11:56] VITALS: BP 126/57; PULSE 79; RESP 18; TEMP 98.2
== END 2018-11-12 11:55 | disposition home or self-care (01) ==
LOC: EC 09:52
DX: S01.511A Laceration without foreign body of lip, initial encounter (principal); S00.31XA Abrasion of nose, initial encounter; M25.512 Pain in left shoulder; E07.9 Disorder of thyroid, unspecified; Z87.891 Personal history of nicotine dependence; Z88.0 Allergy status to penicillin; Z88.1 Allergy status to other antibiotic agents; Z88.5 Allergy status to narcotic agent; Z88.7 Allergy status to serum and vaccine; Z91.048 Other nonmedicinal substance allergy status; Z79.890 Hormone replacement therapy; Z79.899 Other long term (current) drug therapy; Z85.3 Personal history of malignant neoplasm of breast; Z87.828 Personal history of other (healed) physical injury and trauma; W01.0XXA Fall on same level from slipping, tripping and stumbling without subsequent striking against object, initial encounter; Y93.01 Activity, walking, marching and hiking; Y92.008 Other place in unspecified non-institutional (private) residence as the place of occurrence of the external cause
CPT/HCPCS: 70160; 99283; 12011; 96372; J2001; J1885

== ENCOUNTER 2018-11-30 05:42 | Day surgery (SDC) | payer MEDICAID, OTHER ==
[2018-11-29 09:53] VITALS: BMI 18.6
--- NOTE | 2018-11-29 13:59 | HP ---
HISTORY AND PHYSICAL Surgery is scheduled for 11/30/2018. Noelle Hollins is a 53-year-old patient seen with progressive left shoulder pain. After having treatment options discussed with her, she elected to proceed with arthroscopy. Consent regarding the procedure was obtained, clearance was provided by Dr. Jean. PAST MEDICAL HISTORY: Her past medical history is depression, hypothyroidism, breast cancer. PAST SURGICAL HISTORY: Mastectomy. DAILY MEDICATIONS: Alprazolam, levothyroxine. ALLERGIES: TETANUS, PENICILLIN, CODEINE, Z-ANTONIO allergy. SOCIAL HISTORY: She smokes a half a pack cigarettes daily. PHYSICAL EXAMINATION: Physical evaluation of the left shoulder: Flexion is 30 degrees, abduction is 30 degrees. External rotation is 30 degrees. There is weakness there. She is tender all along the anterolateral acromion and rotator cuff insertion site. Impingement sign positive 30 degrees. Drop-arm sign positive. Distal neurovascular exam is intact. Left shoulder radiographs revealed a type 2 anterior acromion and cystic changes of the tuberosity. Left shoulder MRI revealed impingement, partial rotator cuff tear as well as some osteoarthritic changes. IMPRESSION: 1. Left shoulder impingement with partial rotator cuff tear. 2. Left shoulder acromioclavicular and glenohumeral joint osteoarthritis. PLAN: Left shoulder arthroscopy, decompression, possible arthroscopic rotator cuff repair, Eugene procedure and debridement. MMODL / IJN: [id number] /
[2018-11-30] MEDS ORDERED: ONDANSETRON 4 MG/2 ML VIAL IVP ONE (05:53)
[2018-11-30] MEDS ORDERED: fentaNYL (PF) 50 MCG/ML 2 ML AMP IV PRN (05:53)
[2018-11-30] MEDS ORDERED: SCOPOLAMINE 1.5MG/72HR PATCH TRANSDERM ONE (05:53)
[2018-11-30] MEDS ORDERED: LACTATED RINGERS 1,000 ML IV SCH (05:53)
[2018-11-30] MEDS ORDERED: DEXAMETHASONE SOD PHOSPHATE 10 MG/ML 1 ML VIAL IV ONE (05:53)
[2018-11-30] MEDS ORDERED: LIDOCAINE 1% 20 ML VIAL (10MG/ML) FOR IV START INTRADERMA PRN (05:53)
[2018-11-30 06:28] VITALS: TEMP 97
[2018-11-30] MEDS ORDERED: MIDAZOLAM (PF) 2 MG/2 ML VIAL IVP ONE (06:48)
[2018-11-30] MEDS ORDERED: fentaNYL (PF) 50 MCG/ML 2 ML AMP IVP ONE (06:49)
--- NOTE | 2018-11-30 07:15 | P.ANPRN ---
Procedure Note - Anesthesia - Nerve Block Performed Left Interscalene Single Time Out Performed: Yes Date of Procedure: 11/30/18 Procedure Start Time: 06:49 Procedure Stop Time: 06:55 Location of Patient Procedure: PreOp Indication: Acute Post-Operative Pain, Requested by physician (Dr Roman) Sedation Type: Sedate with meaningful contact maintained Preparation: Sterile Prep Position: Supine Catheter: None Needle Types: Facet Needle Gauge: 20 Technique: Ultrasound (Image saved in chart) Injectate: 0.5% Ropivacaine (see comment for volume) (30 mls) Blood Aspirated: No Pain Paresthesia on Injection Noted: No Resistance on Injection: Normal Events: Uneventful and Well Tolerated
[2018-11-30] MEDS ORDERED: LIDOCAINE 1% INJ 10MG/ML (20 ML MDV) ONE (07:20)
[2018-11-30] MEDS ORDERED: PROPOFOL 10 MG/ML 20 ML VIAL IV ONE (07:20)
[2018-11-30] MEDS ORDERED: ROPIVACAINE 5 MG/ML 30 ML VIAL ONE (07:20)
[2018-11-30] MEDS ORDERED: SUCCINYLCHOLINE CHLORIDE 100 MG/5 ML SYR IV ONE (07:20)
--- NOTE | 2018-11-30 09:17 | P.OP ---
Date of Procedure: 11/30/18 Preoperative Diagnosis: Left shoulder impingement Postoperative Diagnosis: 1. Left shoulder rotator cuff tear 2. Left shoulder impingement 3. Left shoulder partial long head biceps tendon tear 4. Left shoulder labral tear Procedure(s) Performed: 1. Left shoulder arthroscopic rotator cuff repair 2. Left shoulder arthroscopic subacromial decompression 3. Left shoulder arthroscopic biceps tenotomy 4. Left shoulder arthroscopic debridement labral tear Implants: 1Arthrex 5.5 swivel lock anchor Anesthesia: GETA, regional (Interscalene block) Surgeon: Gordy Roman Estimated Blood Loss (ml): 10 Pathology: none sent Condition: stable Disposition: PACU Indications for Procedure: 53-year-old patient seen with progressive left shoulder pain. After we had treatment options discussed with her, she elected post with arthroscopy. Operative Findings: see description of procedure Description of Procedure: Patient underwent an interscalene block by department of anesthesia for postoperative pain management. The patient was then taken to the operative suite. The patient underwent a general anesthetic by the department of anesthesia. The patient was placed into a lateral position and secured. There was appropriate padding of the bony prominence. Left shoulder was then prepped and draped in normal sterile orthopedic fashion. We placed the extremity in 10 pounds of longitudinal traction. A posterior incision was now made for a posterior working portal site. The trocar and cannula were inserted into the glenohumeral joint. Arthroscopy was initiated. Spinal needle was now inserted anteriorly, to ascertain the anterior working portal site. An incision was now made in that area, a trocar was inserted followed by a probe. There was superficial tearing of the anterior and superior labrum. There was partial tearing long head biceps tendon with hyperemia. The posterior and inferior labrum were stable. There were grade 1 chondromalacia changes present with no osteochondral tears. I performed an arthroscopic biceps tenotomy. I debrided that superficial labral tear down to stable tissue. The residual labrum was stable. Instruments now removed from the glenohumeral joint. Utilizing the posterior working portal site, the trocar and cannula were inserted into the subacromial space. Arthroscopy initiated. I made an incision 2 fingerbreadths lateral to the acromion. I introduced my trocar followed by my ArthroCare ablator. I now began ablating thick subacromial bursal tissue, which exposed the undersurface of the anterior acromion. There was diminished subacr omial space. There was a very prominent anterior acromion. A motorized bur was introduced and a subacromial decompression was performed. I also excised some osteophytes off the inferior aspect of the distal clavicle. The AC joint was visualized and noted to be moderately arthritic. I did not feel enough to warrant a Eugene procedure. I now found an area of some significant partial tearing of the distal supraspinatus area. After probing there was a significant through and through perforation present. I debrided the margins getting down to stable tendon tissue. The defect measured 1.5 cm. It was freely mobile over the footprint. I abraded the footprint with a motorized bur. I now passed 2 everted mattress sutures through good bites of rotator cuff tendon. I punched a hole for anchor insertion. We passed all 4 limbs of suture through the eyelet of a 5.5 Arthrex swivel lock anchor. The anchor was introduced into our pre-punch hole. The sutures were tensioned and the anchor was deployed with good bite and purchase noted. All residual suture limbs were now clipped. We had good compression of the tendon along the entire footprint. I injected 1 mL Renue intra-articular. Instruments now removed from the portal sites. All portal sites were approximated with nylon suture. Sterile dressings were applied followed by a sling. The patient was awakened, transferred to a bed, and taken to recovery in stable condition.
[2018-11-30 09:50] VITALS: RESP 16
[2018-11-30 10:26] VITALS: BP 121/64
[2018-11-30 10:41] VITALS: PULSE 76
== END 2018-11-30 11:02 | disposition home or self-care (01) ==
LOC: OR 05:42
PROVIDERS: ATTEND Orthopaedic Surgery
DX: M75.102 Unspecified rotator cuff tear or rupture of left shoulder, not specified as traumatic (principal); M75.42 Impingement syndrome of left shoulder; S46.112A Strain of muscle, fascia and tendon of long head of biceps, left arm, initial encounter; S43.432A Superior glenoid labrum lesion of left shoulder, initial encounter; X58.XXXA Exposure to other specified factors, initial encounter; M94.212 Chondromalacia, left shoulder; M19.012 Primary osteoarthritis, left shoulder; F32.9 Major depressive disorder, single episode, unspecified; E03.9 Hypothyroidism, unspecified; J44.9 Chronic obstructive pulmonary disease, unspecified; K21.9 Gastro-esophageal reflux disease without esophagitis; Z85.3 Personal history of malignant neoplasm of breast; Z90.10 Acquired absence of unspecified breast and nipple; F17.210 Nicotine dependence, cigarettes, uncomplicated; Z79.890 Hormone replacement therapy; Z79.899 Other long term (current) drug therapy; Z88.1 Allergy status to other antibiotic agents; Z88.5 Allergy status to narcotic agent; Z88.0 Allergy status to penicillin; Z88.7 Allergy status to serum and vaccine; Z91.09 Other allergy status, other than to drugs and biological substances
CPT/HCPCS: 64415; 29826; 29827; C1713; C1765; J1100; J2405; J0690; J2001; J3010; J2795; J0330; J2704; J2250

== ENCOUNTER → 2019-01-18 | Outpatient (CLI) | payer OTHER ==
[~2019-01-18] MED LIST changes: -DEXAMETHASONE SOD PHOSPHATE 10 MG/ML 1 ML VIAL IV ONE; -HEPARIN SODIUM,PORCINE 5,000 UNIT/ML 1 ML VIAL SQ ONE; +LEUPROLIDE ACET 11.25MG SYRGKIT IM ONE; -MIDAZOLAM (PF) 2 MG/2 ML VIAL IV PRN; -ONDANSETRON 4 MG/2 ML VIAL IVP ONE; -Pre Op ABX Message 1 EACH MISC MISCELLANE ONE; -SCOPOLAMINE 1.5MG/72HR PATCH TRANSDERM ONE; -fentaNYL (PF) 50 MCG/ML 2 ML AMP IV PRN
[2019-01-18 14:01] VITALS: BP 106/61; PULSE 80; RESP 16; TEMP 98.2
== END | disposition home or self-care (01) ==
LOC: PROCWHC3 13:44 → EDSTATUS 13:45
PROVIDERS: ATTEND Internal Medicine Hematology & Oncology
DX: Z51.11 Encounter for antineoplastic chemotherapy (principal); C50.112 Malignant neoplasm of central portion of left female breast
CPT/HCPCS: 96402

== ENCOUNTER → 2019-01-22 | Outpatient (CLI) | payer OTHER | END | disposition home or self-care (01) | LOC: LABWHC1 13:23 | PROVIDERS: ATTEND Internal Medicine Endocrinology, Diabetes & Metabolism | DX: E03.8 Other specified hypothyroidism (principal) | CPT/HCPCS: 36415; 84443 ==

== ENCOUNTER → 2019-04-02 | Outpatient (CLI) | payer OTHER | END | disposition home or self-care (01) | LOC: LABWHC1 08:38 | PROVIDERS: ATTEND Internal Medicine Endocrinology, Diabetes & Metabolism | DX: E03.8 Other specified hypothyroidism (principal) | CPT/HCPCS: 36415; 84439; 84443; 84480; 84481 ==

== ENCOUNTER → 2019-04-19 | Outpatient (CLI) | payer MEDICAID, OTHER ==
[2019-04-19 09:03] VITALS: BP 125/73; PULSE 74; RESP 18; TEMP 97.7
== END | disposition home or self-care (01) ==
LOC: PROCWHC3 08:47
PROVIDERS: ATTEND Internal Medicine Hematology & Oncology
DX: Z51.11 Encounter for antineoplastic chemotherapy (principal); C50.112 Malignant neoplasm of central portion of left female breast
CPT/HCPCS: 96402; J1950

== ENCOUNTER 2019-04-21 17:43 | Emergency (ER) | payer MEDICAID ==
[2019-04-21 17:55] VITALS: RESP 18
--- NOTE | 2019-04-21 18:08 | ED ---
Allergic Reaction HPI - General Chief complaint: Allergic Reaction Stated complaint: Allergic Reaction/Rash Time Seen by Provider: 04/21/19 17:59 Source: patient Mode of arrival: ambulatory Limitations: no limitations - History of Present Illness Initial Comments: Patient is a 53-year-old female with history of breast cancer presenting to emergency Department with a chief complaint of an ALLERGIC reaction. Patient reports otherwise that she received a shot to "shut on the ovaries", she is unaware of the name. She normally receives a shot every 3 months. This a second time she received a shot. Patient reports she woke up this morning and noticed an erythematous rash throughout the trunk and face. Rash is not painful but it is itchy. Patient denies dyspnea, dysphagia, done aphasia. Patient denies nausea or vomiting or diarrhea. Patient denies that is fevers or chills. Patient reports taking 2 Benadryl prior to arrival with minimal improvement. She called the oncologist who stated that Benadryl does not improve her symptoms to come to the ED. She takes tamoxifen daily. - Related Data Home Medications Medication Instructions Recorded Confirmed Acetaminophen [Tylenol Extra 1,000 mg PO Q6H PRN 07/29/18 04/19/19 Strength] Ibuprofen [Motrin] 800 mg PO BID PRN 07/29/18 04/19/19 Levothyroxine Sodium [Synthroid] 137 mcg PO DAILY 07/30/18 04/19/19 DULoxetine HCL [Cymbalta] 60 mg PO DAILY 11/29/18 04/19/19 Previous Rx's Medication Instructions Recorded Famotidine [Pepcid] 20 mg PO DAILY #4 tablet 04/21/19 predniSONE 50 mg PO DAILY #4 tab 04/21/19 Allergies Allergy/AdvReac Type Severity Reaction Status Date / Time azithromycin Allergy Rash/Hives Verified 04/19/19 08:56 codeine Allergy Rash/Hives Verified 04/19/19 08:56 codeine phosphate Allergy Rash/Hives Verified 04/19/19 08:56 [From Tylenol-Codeine #3] hydromorphone [From Dilaudid] Allergy Rash/Hives Verified 04/19/19 08:56 Penicillins Allergy Rash/Hives Verified 04/19/19 08:56 silver Allergy Rash/Hives Verified 04/19/19 08:56 [From Tegaderm AG Mesh] tetanus toxoid, adsorbed Allergy Unknown Verified 04/19/19 08:56 Childhood morphine AdvReac Unknown Nausea & Verified 04/19/19 08:56 Vomiting, Headache Tegaderm Clear IV dressing Allergy Unknown Rash/Hives Uncoded 04/19/19 08:56 Review of Systems ROS Statement: Those systems with pertinent positive or pertinent negative responses have been documented in the HPI. ROS Other: All systems not noted in ROS Statement are negative. Past Medical History Past Medical History: Cancer, COPD, Musculoskeletal Disorder, Thyroid Disorder Additional Past Medical History / Comment(s): BACK PAIN, migraines, DX BREAST CANCER- History of Any Multi-Drug Resistant Organisms: None Reported Past Surgical History: Section, Hysterectomy Additional Past Surgical History / Comment(s): C/S x3, BREAST BIOPSY-CORE BIOPSY, PORT A CATH , Past Anesthesia/Blood Transfusion Reactions: No Reported Reaction Past Psychological History: Anxiety, Depression Smoking Status: Current some day smoker Past Alcohol Use History: Rare Past Drug Use History: None Reported - Past Family History Mother Family Medical History: Cancer Additional Family Medical History / Comment(s): lung Brother(s) Family Medical History: Cancer Additional Family Medical History / Comment(s): LYMPH NODE -NECK CANCER General Exam Limitations: no limitations General appearance: alert, in no apparent distress Head exam: Present: atraumatic, normocephalic, normal inspection. Absent: other (No angioedema) Eye exam: Present: normal appearance, PERRL, EOMI. Absent: periorbital swelling Pupils: Present: normal accommodation ENT exam: Present: normal exam, normal oropharynx (No tonsillar enlargement. Posterior pharynx visualized.), mucous membranes moist, TM's normal bilaterally, normal external ear exam Neck exam: Present: normal inspection, full ROM Respiratory exam: Present: normal lung sounds bilaterally, other (Bilateral mastectomy). Absent: respiratory distress, wheezes, rales, rhonchi, stridor, chest wall tenderness, accessory muscle use Cardiovascular Exam: Present: regular rate, normal rhythm, normal heart sounds Extremities exam: Present: normal inspection, full ROM Back exam: Present: normal inspection, full ROM Neurological exam: Present: alert, oriented X3 Psychiatric exam: Present: normal affect, normal mood Skin exam: Present: warm, dry, intact, normal color, rash (Diffuse erythematous macular rash on trunk and face. Blanching) Course Vital Signs 04/21/19 17:51 Temperature 98.4 F Pulse Rate 83 Respiratory 18 Rate Blood Pressure 125/77 O2 Sat by Pulse 98 Oximetry Medical Decision Making - Medical Decision Making Patient 53-year-old female presenting to emergency Department with a chief complaint of an ALLERGIC reaction. Considering the patient had received the dose of the medication about 3 days ago, but the rash occurred only today. I have low suspicion the rash is related to the medication.. On exam patient is not in respiratory distress. No angioedema noted. On auscultation no wheezing noted. Posterior pharynx visualized. There is an erythematous macular rash. Patient given 10 mg of Decadron. No signs of anaphylactic reaction. On reevaluation there is some improvement in the rash although it is not completely resolved. Patient was discharged with 4 days of prednisone and Pepcid. Strict return parameters were thoroughly discussed the patient was understanding and ag reeable. Case discussed with physician. Disposition Clinical Impression: Allergic reaction, Macular erythematous rash Disposition: HOME SELF-CARE Condition: Stable Instructions (If sedation given, give patient instructions): Anaphylaxis (ED) Additional Instructions: Please take prescribed medication as directed. Please return to emergency department is symptoms worsen. Prescriptions: Famotidine [Pepcid] 20 mg PO DAILY #4 tablet predniSONE 50 mg PO DAILY #4 tab Is patient prescribed a controlled substance at d/c from ED?: No Referrals: Kvng Jean MD [Primary Care Provider] - 1-2 days Time of Disposition: 19:31
[2019-04-21] MEDS ORDERED: DEXAMETHASONE SOD PHOSPHATE 10 MG/ML 1 ML VIAL IM STA (18:14)
[2019-04-21 19:55] VITALS: BP 122/68; PULSE 75; TEMP 98.2
== END 2019-04-21 19:54 | disposition home or self-care (01) ==
LOC: EC 17:43
DX: T78.40XA Allergy, unspecified, initial encounter (principal); R21 Rash and other nonspecific skin eruption; E07.9 Disorder of thyroid, unspecified; F41.9 Anxiety disorder, unspecified; F32.9 Major depressive disorder, single episode, unspecified; F17.200 Nicotine dependence, unspecified, uncomplicated; Z79.890 Hormone replacement therapy; Z79.899 Other long term (current) drug therapy; Z88.0 Allergy status to penicillin; Z88.5 Allergy status to narcotic agent; Z88.6 Allergy status to analgesic agent; Z88.7 Allergy status to serum and vaccine; Z88.8 Allergy status to other drugs, medicaments and biological substances; Z85.3 Personal history of malignant neoplasm of breast; Z90.13 Acquired absence of bilateral breasts and nipples
CPT/HCPCS: 99283; 96372; J1100

== ENCOUNTER → 2019-04-26 | Outpatient (CLI) | payer MEDICAID ==
[2019-04-27 00:21] LABS: Follicle Stimulating Hormone 3.2 mIU/mL
[2019-04-27 00:25] LABS: Estradiol <11.8 pg/mL; Luteinizing Hormone 0.4 mIU/mL
== END | disposition home or self-care (01) ==
LOC: LABWHC1 15:24
PROVIDERS: ATTEND Internal Medicine Hematology & Oncology
DX: C50.919 Malignant neoplasm of unspecified site of unspecified female breast (principal)
CPT/HCPCS: 36415; 82670; 83001; 83002

== ENCOUNTER → 2019-07-03 | Outpatient (CLI) | payer MEDICAID | LOC: LABWHC1 08:22 | PROVIDERS: ATTEND Internal Medicine Endocrinology, Diabetes & Metabolism | DX: E03.8 Other specified hypothyroidism (principal) | CPT/HCPCS: 36415; 84439; 84443; 84480 ==

== ENCOUNTER → 2019-07-23 | Outpatient (CLI) | payer MEDICAID ==
[2019-07-23 14:34] VITALS: BP 145/67; PULSE 86; RESP 18; TEMP 98.1
== END | disposition home or self-care (01) ==
LOC: PROCWHC3 14:14
PROVIDERS: ATTEND Internal Medicine Hematology & Oncology
DX: Z51.11 Encounter for antineoplastic chemotherapy (principal); C50.112 Malignant neoplasm of central portion of left female breast
CPT/HCPCS: 96402; J1950

== ENCOUNTER → 2019-09-18 | Outpatient (CLI) | payer MEDICAID ==
--- NOTE | 2019-09-18 11:30 | BD ---
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 Poor Health: HX OF BRAST CA Hyperparathyroidism: NO Adrenal Insufficiency: NO MEDICATIONS: Thyroid Medications: YES, SYNTHROID, FOR ABOUT 10 YRS Additional Medications: CALCIUM WITH D, ANTI HORMONE FOR BREAST CANCER, BP MEDS, HX OF CHEMO AND RADI ATION, TYLENOL FOR ACHES, Additional History: HX OF BILAT MASTECTOMY, WITH NODES ON BOTH SIDES REMOVED, EXAM MEASUREMENTS: Bone mineral densitometry was performed using the [employer] System. Bone mineral density as measured about the Lumbar spine is: ----- L1-L4(G/cm2): 0.923 T Score Values are as follows: ----- L1: -1.7 ----- L2: -1.6 ----- L3: -2.0 ----- L4: -3.1 ----- L1-L4: -2.1 Bone mineral density FIRST BONE DENSITY SCAN......BASELINE STUDY Bone mineral density about the R hip (g/cm2): 0.816 Bone mineral density about the L hip (g/cm2): 0.819 T Score values are as follows: -----R Neck: -1.6 -----L Neck: -1.6 -----R Total: -1.1 -----L Total: -0.9 Bone mineral density BASELINE STUDY FRAX%s: THERE IS A 5.5% CHANCE FOR A MAJOR OSTEOPOROTIC FX AND A 0.8% FOR HIP.....PROBABILITY FOR FX IN 10 YRS TIME IMPRESSION: Osteopenia (T Score between -2.5 and -1). Borderline values for osteoporosis in regards to the lumbar spine. There is slightly increased risk of fracture and the patient may be considered for treatment. Re-Screen 2-5 years. NOTE: T-SCORE=SD OF THE YOUNG ADULT MEAN.
== END | disposition home or self-care (01) ==
LOC: RADBDWWP 09:44
PROVIDERS: ATTEND Internal Medicine Hematology & Oncology
DX: M85.80 Other specified disorders of bone density and structure, unspecified site (principal); C50.112 Malignant neoplasm of central portion of left female breast; Z88.8 Allergy status to other drugs, medicaments and biological substances
CPT/HCPCS: 77080

== ENCOUNTER → 2019-10-16 | Outpatient (CLI) | payer MEDICAID | END | disposition home or self-care (01) | LOC: LABWHC1 12:19 | PROVIDERS: ATTEND Internal Medicine Endocrinology, Diabetes & Metabolism | DX: E03.8 Other specified hypothyroidism (principal) | CPT/HCPCS: 36415; 84443 ==

== ENCOUNTER → 2019-10-26 | Outpatient (CLI) | payer MEDICAID ==
[2019-10-26 09:30] VITALS: BP 120/69; PULSE 68; TEMP 98
== END | disposition home or self-care (01) ==
LOC: PROCWHC3 09:17
PROVIDERS: ATTEND Internal Medicine Hematology & Oncology
DX: Z51.11 Encounter for antineoplastic chemotherapy (principal); C50.112 Malignant neoplasm of central portion of left female breast
CPT/HCPCS: 96372; J1950

== ENCOUNTER → 2020-02-01 | Outpatient (CLI) | payer MEDICAID ==
[~2020-02-01] MED LIST changes: +GOSERELIN ACETATE 10.8 MG IMPLANT SQ ONE; -LEUPROLIDE ACET 11.25MG SYRGKIT IM ONE
[2020-02-01 11:28] VITALS: BP 108/70; PULSE 69; RESP 16; TEMP 98.3
== END | disposition home or self-care (01) ==
LOC: PROCWHC3 11:07
PROVIDERS: ATTEND Internal Medicine Hematology & Oncology
DX: Z51.11 Encounter for antineoplastic chemotherapy (principal); C50.112 Malignant neoplasm of central portion of left female breast

== ENCOUNTER → 2020-06-05 | Outpatient (CLI) | payer MEDICAID ==
[~2020-06-05] MED LIST changes: +GOSERELIN ACETATE 10.8 MG IMPLANT SQ NR; -GOSERELIN ACETATE 10.8 MG IMPLANT SQ ONE
[2020-06-05 13:37] VITALS: BP 124/57; PULSE 96; RESP 16; TEMP 98.2
== END | disposition home or self-care (01) ==
LOC: PROCWHC3 13:17
PROVIDERS: ATTEND Internal Medicine Hematology & Oncology
DX: Z51.11 Encounter for antineoplastic chemotherapy (principal); C50.112 Malignant neoplasm of central portion of left female breast
CPT/HCPCS: 96402; J9202

== ENCOUNTER → 2020-07-09 | Outpatient (CLI) | payer MEDICAID | END | disposition home or self-care (01) | LOC: LABWHC1 15:18 | PROVIDERS: ATTEND Internal Medicine Endocrinology, Diabetes & Metabolism | DX: E03.8 Other specified hypothyroidism (principal) | CPT/HCPCS: 36415; 84443 ==

== ENCOUNTER → 2020-12-17 | Outpatient (CLI) | payer MEDICAID ==
[2020-12-17 23:25] LABS: Basophils # (A) 0.04 X 10*3/uL (0.00-0.10); Basophils % (A) 0.9 %; Eosinophils # (A) 0.06 X 10*3/uL (0.04-0.35); Eosinophils % (A) 1.3 %; HCT 37.8 % (37.2-46.3); HGB 12.2 g/dL (12.0-15.0); MCH 28.4 pg (27.0-32.0); MCHC 32.3 g/dL (32.0-37.0); MCV 87.9 fL (80.0-97.0); Mean Platelet Volume 11.3 fL (9.5-12.2); Monocytes # (A) 0.34 X 10*3/uL (0.20-1.00); Monocytes % (A) 7.6 %; Neutrophils # (A) 2.73 X 10*3/uL (1.80-7.70); Platelet Count 249 X 10*3/uL (140-440); RDW 12.1 % (11.5-14.5); WBC 4.48 X 10*3/uL (4.50-10.00)
[2020-12-18 06:10] LABS: ALT 13 U/L (8-44); AST 18 U/L (13-35); African American GFR (CKD) 120.6 (60.0-200.0); Albumin/Globulin Ratio 1.77 (1.60-3.17); Alkaline Phosphatase 118 U/L (41-126); BUN/Creat Ratio 18.33 Ratio (12.00-20.00); Calcium 9.4 mg/dL (8.7-10.3); Carbon Dioxide 24.9 mmol/L (21.6-31.8); Chloride 106 mmol/L (96-109); Globulin 2.6 g/dL (1.6-3.3); Glucose 78 mg/dL (70-110); Non-African American GFR(CKD) 104.1 (60.0-200.0); Potassium 3.7 mmol/L (3.5-5.5); Sodium 142 mmol/L (135-145); Total Bilirubin 0.2 mg/dL (0.2-1.2); Total Protein 7.2 g/dL (6.2-8.2)
[2020-12-18 06:19] LABS: Follicle Stimulating Hormone 5.4 mIU/mL
[2020-12-18 06:23] LABS: Estradiol 13.5 pg/mL; Luteinizing Hormone <0.1 mIU/mL
== END | disposition home or self-care (01) ==
LOC: LABWHC1 15:23
PROVIDERS: ATTEND Internal Medicine Hematology & Oncology
DX: C50.112 Malignant neoplasm of central portion of left female breast (principal); E03.9 Hypothyroidism, unspecified; J44.9 Chronic obstructive pulmonary disease, unspecified; Z17.0 Estrogen receptor positive status [ER+]
CPT/HCPCS: 36415; 80053; 82670; 83001; 83002; 85025

== ENCOUNTER → 2021-01-20 | Outpatient (CLI) | payer MEDICAID | END | disposition home or self-care (01) | LOC: LABWHC1 15:14 | PROVIDERS: ATTEND Internal Medicine Endocrinology, Diabetes & Metabolism | DX: E03.8 Other specified hypothyroidism (principal) | CPT/HCPCS: 36415; 84443 ==

== ENCOUNTER → 2021-02-04 | Outpatient (CLI) | payer MEDICAID ==
[~2021-02-04] MED LIST changes: +DENOSUMAB 60 MG/ML 1 ML SYRINGE SQ NR; -GOSERELIN ACETATE 10.8 MG IMPLANT SQ NR; +LEUPROLIDE ACET 11.25MG SYRGKIT IM NR
[2021-02-04 12:06] VITALS: BP 130/63; PULSE 75; RESP 16; TEMP 98.1
== END ==
LOC: PROCWHC3 11:44
PROVIDERS: ATTEND Internal Medicine Hematology & Oncology
DX: C50.112 Malignant neoplasm of central portion of left female breast (principal); M81.8 Other osteoporosis without current pathological fracture; F17.200 Nicotine dependence, unspecified, uncomplicated; Z79.811 Long term (current) use of aromatase inhibitors; Z88.5 Allergy status to narcotic agent; Z88.0 Allergy status to penicillin; Z88.1 Allergy status to other antibiotic agents; Z88.7 Allergy status to serum and vaccine; Z88.9 Allergy status to unspecified drugs, medicaments and biological substances
CPT/HCPCS: 96372; 96402; J0897; J1950

== ENCOUNTER → 2021-05-22 | Outpatient (CLI) | payer MEDICAID ==
--- NOTE | 2021-05-25 10:31 | USB ---
Reason for exam: clinical finding. History: Patient has history of breast cancer at age 52. Malignant US biopsy breast VAD LT of the left breast, January 10, 2018. Malignant US biopsy breast VAD LT of the left breast, January 10, 2018. Malignant US biopsy breast add'l VAD LT of the left breast, January 10, 2018. Cyst aspiration of the left breast, 2013. Indicated problem(s): pain in the left breast. Physical Findings: Nurse did not find any significant physical abnormalities on exam. US Breast Axilla LT Left axilla breast ultrasound demonstrates no cystic or solid lesion seen at the axilla. These results were verbally communicated with the patient and result sheet given to the patient on 05/22/21. ASSESSMENT: Negative, BI-RAD 1 RECOMMENDATION: Clinical management of the left breast. Manage patient on a clinical basis.
== END | disposition home or self-care (01) ==
LOC: RADUSWWP 14:00
PROVIDERS: ATTEND Family Medicine
DX: N64.4 Mastodynia (principal); Z85.3 Personal history of malignant neoplasm of breast

== ENCOUNTER → 2021-05-27 | Outpatient (CLI) | payer MEDICAID ==
--- NOTE | 2021-05-27 14:42 | CT ---
EXAMINATION TYPE: CT iac wo con DATE OF EXAM: 05/27/2021 COMPARISON: None HISTORY: hearing loss, ringing in ears CT DLP: 150mGycm Automated exposure control for dose reduction was used. FINDINGS: The external auditory canals are patent bilaterally. Mastoid air cells show no evidence of abnormal opacification bilaterally. The middle ear ossicles are symmetric and unremarkable. There is no evidence of suspicious surrounding soft tissue density to suggest cholesteatoma. The scu morgan is preserved bilaterally. The cochlea and the semicircular canals are symmetric and unremarkable . Vestibular aqueduct and internal carotid canal appear unremarkable. Temporomandibular joints are maintained bilaterally. IMPRESSION: No significant abnormality seen to account for patient's symptoms.
== END | disposition home or self-care (01) ==
LOC: RADCTMAIN 14:01
PROVIDERS: ATTEND Otolaryngology
DX: H93.19 Tinnitus, unspecified ear (principal); H91.90 Unspecified hearing loss, unspecified ear; H93.3X9 Disorders of unspecified acoustic nerve
CPT/HCPCS: 70480

== ENCOUNTER → 2021-05-28 | Outpatient (CLI) | payer MEDICAID ==
[~2021-05-28] MED LIST changes: -DENOSUMAB 60 MG/ML 1 ML SYRINGE SQ NR
[2021-05-28 13:58] VITALS: BP 119/48; PULSE 86; RESP 14; TEMP 98.1
== END | disposition home or self-care (01) ==
LOC: PROCWHC3 13:47
PROVIDERS: ATTEND Internal Medicine Hematology & Oncology
DX: C50.112 Malignant neoplasm of central portion of left female breast (principal); Z79.811 Long term (current) use of aromatase inhibitors
CPT/HCPCS: 96402; J1950

== ENCOUNTER → 2021-07-20 | Outpatient (CLI) | payer MEDICAID | END | disposition home or self-care (01) | LOC: LABWHC1 15:13 | PROVIDERS: ATTEND Internal Medicine Endocrinology, Diabetes & Metabolism | DX: E03.8 Other specified hypothyroidism (principal) | CPT/HCPCS: 36415; 84443 ==

== ENCOUNTER → 2021-08-26 | Outpatient (CLI) | payer MEDICAID ==
[~2021-08-26] MED LIST changes: +DENOSUMAB 60 MG/ML 1 ML SYRINGE SQ ONE; -LEUPROLIDE ACET 11.25MG SYRGKIT IM NR; +LEUPROLIDE ACET 11.25MG SYRGKIT IM ONE
[2021-08-26 14:00] VITALS: BP 118/70; PULSE 80; RESP 16; TEMP 98.9
== END ==
LOC: PROCWHC3 13:37
PROVIDERS: ATTEND Internal Medicine Hematology & Oncology
DX: C50.112 Malignant neoplasm of central portion of left female breast (principal); Z88.5 Allergy status to narcotic agent; Z88.7 Allergy status to serum and vaccine; Z88.1 Allergy status to other antibiotic agents; Z88.0 Allergy status to penicillin; Z88.9 Allergy status to unspecified drugs, medicaments and biological substances; Z88.8 Allergy status to other drugs, medicaments and biological substances; F17.200 Nicotine dependence, unspecified, uncomplicated
CPT/HCPCS: 96402

== ENCOUNTER → 2021-09-02 | Outpatient (CLI) | payer MEDICAID ==
[~2021-09-02] MED LIST changes: +DENOSUMAB 60 MG/ML 1 ML SYRINGE SQ NR; -DENOSUMAB 60 MG/ML 1 ML SYRINGE SQ ONE; -LEUPROLIDE ACET 11.25MG SYRGKIT IM ONE
[2021-09-02 13:38] VITALS: BP 122/56; PULSE 85; RESP 16; TEMP 98.5
== END ==
LOC: PROCWHC3 12:46
PROVIDERS: ATTEND Internal Medicine Hematology & Oncology
DX: C50.112 Malignant neoplasm of central portion of left female breast (principal); F17.200 Nicotine dependence, unspecified, uncomplicated; Z79.811 Long term (current) use of aromatase inhibitors; Z88.1 Allergy status to other antibiotic agents; Z88.5 Allergy status to narcotic agent; Z88.0 Allergy status to penicillin; Z88.7 Allergy status to serum and vaccine; Z88.8 Allergy status to other drugs, medicaments and biological substances
CPT/HCPCS: 96372; J0897

== ENCOUNTER → 2021-11-02 | Outpatient (CLI) | payer MEDICAID | END | disposition home or self-care (01) | LOC: LABWHC1 15:08 | PROVIDERS: ATTEND Internal Medicine Endocrinology, Diabetes & Metabolism | DX: E03.8 Other specified hypothyroidism (principal) | CPT/HCPCS: 36415; 84443 ==

== ENCOUNTER → 2021-11-25 | Outpatient (CLI) | payer MEDICAID ==
[~2021-11-25] MED LIST changes: -DENOSUMAB 60 MG/ML 1 ML SYRINGE SQ NR; +LEUPROLIDE ACET 11.25MG SYRGKIT IM NR
[2021-11-25 13:11] VITALS: BP 126/69; PULSE 78; RESP 18; TEMP 98
== END ==
LOC: PROCWHC3 12:52
PROVIDERS: ATTEND Internal Medicine Hematology & Oncology
DX: C50.112 Malignant neoplasm of central portion of left female breast (principal); Z79.811 Long term (current) use of aromatase inhibitors; Z88.5 Allergy status to narcotic agent; Z88.1 Allergy status to other antibiotic agents; Z88.0 Allergy status to penicillin; Z88.7 Allergy status to serum and vaccine; Z88.8 Allergy status to other drugs, medicaments and biological substances; F17.200 Nicotine dependence, unspecified, uncomplicated
CPT/HCPCS: 96402; J1950

== ENCOUNTER → 2022-03-04 | Outpatient (CLI) | payer MEDICAID ==
--- NOTE | 2022-03-04 14:23 | BD ---
EXAMINATION TYPE: Axial Bone Density DATE OF EXAM: 03/04/2022 COMPARISON: 09.18.2019 DEXA bone scan report CLINICAL HISTORY: 56 years year old Female. ICD-10 CODE: C50.112 breast ca Height: 65 Weight: 129 FRAX RISK QUESTIONS: Alcohol (3 or more units per day): IN THE PAST, NOT NOW Current Tobacco Use: YES RISK FACTORS HISTORY OF: Active: YES Diet low in dairy products/other sources of calcium: YES Postmenopausal woman: UTERUS REMOVED 18 YRS AGO, MAYBE LEXIS NOW Hyperparathyroidism: NO Adrenal Insufficiency: NO MEDICATIONS: Thyroid Medications: YES, FOR ABOUT 10 YRS, SYNTHROID Osteoporosis Medications: YES, PROLIA, FOR 2 YRS Additional Medications: PROLIA SHOTS AND LUPRON SHOTS FOR BR CA, ADD MEDS, CYMBALTA, ALLERGY PILLS, V ITD, CALCIUM, TYLENOL, AND IBUPROFEN , HX OF CHEMO AND RADIATION FOR BR CA Additional History: HX OF BREAST CANCER LT BREAST, BILAT MASTECTOMY, SEN NODE/15 NODES REMOVED, EXAM MEASUREMENTS: Bone mineral densitometry was performed using the [employer] System. Bone mineral density as measured about the Lumbar spine is: ----- L1-L4(G/cm2): 0.860 T Score Values are as follows: ----- L1: -2.8 ----- L2: -2.6 ----- L3: -2.1 ----- L4: -3.2 ----- L1-L4: -2.7 Bone mineral density NO COMPARISON AVAILABLE Bone mineral density about the R hip (g/cm2): 0.875 Bone mineral density about the L hip (g/cm2): 0.877 T Score values are as follows: -----R Neck: -1.5 -----L Neck: -1.7 -----R Total: -1.1 -----L Total: -1.0 Bone mineral density NO COMPARISON AVAILABLE FRAX%s: The graph provided illustrates a 6.4% chance for a major osteoporotic fx and a 1.1% chance fo r the hips probability for fx in 10 years time. IMPRESSION: Osteoporosis (T Score less than -2.5) is now present. There is increased fracture risk and therapy is usually indicated based on age. Re-Screen 1-2 years. NOTE: T-SCORE=SD OF THE YOUNG ADULT MEAN.
== END | disposition home or self-care (01) ==
LOC: RADBDWWP 13:12
PROVIDERS: ATTEND Internal Medicine Hematology & Oncology
DX: C50.112 Malignant neoplasm of central portion of left female breast (principal); M81.0 Age-related osteoporosis without current pathological fracture; Z78.0 Asymptomatic menopausal state
CPT/HCPCS: 77080

== ENCOUNTER → 2022-03-05 | Outpatient (CLI) | payer MEDICAID ==
[~2022-03-05] MED LIST changes: +DENOSUMAB 60 MG/ML 1 ML SYRINGE SQ NR
[2022-03-05 13:12] VITALS: BP 125/74; PULSE 74; RESP 16; TEMP 98.1
== END | disposition home or self-care (01) ==
LOC: PROCWHC3 12:47
PROVIDERS: ATTEND Internal Medicine Hematology & Oncology
DX: C50.112 Malignant neoplasm of central portion of left female breast (principal); Z79.811 Long term (current) use of aromatase inhibitors
CPT/HCPCS: 96372; 96402; J0897; J1950

== ENCOUNTER → 2022-05-04 | Outpatient (CLI) | payer MEDICAID | END | disposition home or self-care (01) | LOC: LABWHC1 11:27 | PROVIDERS: ATTEND Internal Medicine Endocrinology, Diabetes & Metabolism | DX: E03.8 Other specified hypothyroidism (principal) | CPT/HCPCS: 36415; 84443 ==

== ENCOUNTER → 2022-05-26 | Outpatient (CLI) | payer MEDICAID ==
[~2022-05-26] MED LIST changes: -DENOSUMAB 60 MG/ML 1 ML SYRINGE SQ NR; +LEUPROLIDE ACET 11.25MG SYRGKIT IM ONE
[2022-05-26 14:25] VITALS: BP 135/72; PULSE 82; RESP 16; TEMP 97.5
== END ==
LOC: PROCWHC3 14:11
PROVIDERS: ATTEND Internal Medicine Hematology & Oncology
DX: C50.112 Malignant neoplasm of central portion of left female breast (principal); F17.200 Nicotine dependence, unspecified, uncomplicated; Z88.1 Allergy status to other antibiotic agents; Z88.5 Allergy status to narcotic agent; Z88.0 Allergy status to penicillin; Z88.7 Allergy status to serum and vaccine; Z91.048 Other nonmedicinal substance allergy status
CPT/HCPCS: 96402; J1950

== ENCOUNTER → 2022-06-09 | Outpatient (CLI) | payer MEDICAID ==
[2022-06-09 19:20] LABS: Basophils # (A) 0.03 X 10*3/uL (0.00-0.10); Basophils % (A) 0.6 %; Eosinophils # (A) 0.05 X 10*3/uL (0.04-0.35); HCT 42.2 % (37.2-46.3); HGB 13.1 g/dL (12.0-15.0); Immature Grans, Automated 0.4 %; Lymphocytes # (A) 1.22 X 10*3/uL (0.90-5.00); Lymphocytes % (A) 25.5 %; MCV 93.6 fL (80.0-97.0); Mean Platelet Volume 10.4 fL (9.5-12.2); Monocytes # (A) 0.29 X 10*3/uL (0.20-1.00); Monocytes % (A) 6.1 %; NRBC Per 100 WBC 0 /100 WBCS (0.0-0.0); Neutrophils # (A) 3.17 X 10*3/uL (1.80-7.70); Neutrophils % (A) 66.4 %; Platelet Count 265 X 10*3/uL (140-440); RBC 4.51 X 10*6/uL (4.10-5.20); RDW 13.2 % (11.5-14.5); WBC 4.78 X 10*3/uL (4.50-10.00)
[2022-06-09 19:33] LABS: African American GFR (CKD) 113.7 (60.0-200.0); Albumin 4.9 g/dL (3.8-4.9); Albumin/Globulin Ratio 1.82 (1.60-3.17); Anion Gap 11.3 mmol/L (10.00-18.00); BUN/Creat Ratio 11.7 Ratio (12.00-20.00); Blood Urea Nitrogen 8.2 mg/dL (9.0-27.0); Calcium 9.4 mg/dL (8.7-10.3); Carbon Dioxide 26.7 mmol/L (20.0-27.5); Globulin 2.7 g/dL (1.6-3.3); Non-African American GFR(CKD) 98.1 (60.0-200.0); Potassium 4.2 mmol/L (3.5-5.5); Total Bilirubin 0.3 mg/dL (0.30-1.20); Total Protein 7.7 g/dL (6.2-8.2)
== END | disposition home or self-care (01) ==
LOC: LABWHC1 11:52
PROVIDERS: ATTEND Nurse Practitioner Adult Health
DX: R10.9 Unspecified abdominal pain (principal)
CPT/HCPCS: 36415; 80053; 82150; 83690; 85025

== ENCOUNTER → 2022-06-09 | Outpatient (CLI) | payer MEDICAID ==
--- NOTE | 2022-06-09 12:03 | CT ---
EXAMINATION TYPE: CT abdomen pelvis wo con DATE OF EXAM: 06/09/2022 COMPARISON: CT chest 04/21/2018, CT abdomen 04/14/2010 HISTORY: Constipation, abdominal pain CT DLP: 231.0 mGycm Automated exposure control for dose reduction was used. TECHNIQUE: Helical acquisition of images was performed from the lung bases through the pelvis. FINDINGS: LUNG BASES: There is a 3 mm nodule in the right lung base. Lung bases otherwise clear. LIVER/GB: 12 mm hypodense lesion in segment IVb of the liver has been present since at least 2009 and is probably a hemangioma (based on prior imaging). The liver is otherwise unremarkable. Single stone in the dependent portion of the gallbladder. No CT evidence of acute cholecystitis. PANCREAS: No significant abnormality is seen. SPLEEN: No significant abnormality is seen. ADRENALS: No significant abnormality is seen. KIDNEYS: No significant abnormality is seen. FREE AIR: No free air is visualized RETROPERITONEAL ADENOPATHY: None visualized REPRODUCTIVE ORGANS: No significant abnormality is seen URINARY BLADDER: No significant abnormality is seen. PELVIC ADENOPATHY: None visualized. OSSEOUS STRUCTURES: No significant abnormality is seen. BOWEL: There is moderate stool throughout the colon. No other abnormality. IMPRESSION: 1. Moderate stool throughout the colon supporting the history of constipation. 2. No acute process in the abdomen or pelvis. 3. There is a 3 mm nodule within the right lung base which is of unclear significance. It was not pre sent on prior examinations. In light of known breast cancer history, follow-up CT chest should be per formed in 3 months.
== END | disposition home or self-care (01) ==
LOC: RADCTMAIN 11:15
PROVIDERS: ATTEND Family Medicine
DX: K59.00 Constipation, unspecified (principal); R91.1 Solitary pulmonary nodule; R10.12 Left upper quadrant pain
CPT/HCPCS: 74176

== ENCOUNTER → 2022-09-07 | Outpatient (CLI) | payer MEDICAID ==
[~2022-09-07] MED LIST changes: +DENOSUMAB 60 MG/ML 1 ML SYRINGE SQ NR; -LEUPROLIDE ACET 11.25MG SYRGKIT IM ONE
[2022-09-07 12:04] VITALS: BP 112/67; PULSE 80; RESP 16; TEMP 97.9
== END ==
LOC: PROCWHC3 11:53
PROVIDERS: ATTEND Internal Medicine Hematology & Oncology
DX: C50.112 Malignant neoplasm of central portion of left female breast (principal); Z79.811 Long term (current) use of aromatase inhibitors; Z88.1 Allergy status to other antibiotic agents; Z88.5 Allergy status to narcotic agent; Z88.0 Allergy status to penicillin; Z88.7 Allergy status to serum and vaccine; Z88.8 Allergy status to other drugs, medicaments and biological substances; F17.200 Nicotine dependence, unspecified, uncomplicated
CPT/HCPCS: 96372; 96402; J0897; J1950

== ENCOUNTER → 2022-12-08 | Outpatient (CLI) | payer MEDICAID ==
[~2022-12-08] MED LIST changes: -DENOSUMAB 60 MG/ML 1 ML SYRINGE SQ NR
[2022-12-08 12:06] VITALS: BP 132/63; PULSE 83; RESP 15; TEMP 97.6
== END ==
LOC: PROCWHC3 11:56
PROVIDERS: ATTEND Internal Medicine Hematology & Oncology
DX: C50.112 Malignant neoplasm of central portion of left female breast (principal); Z79.818 Long term (current) use of other agents affecting estrogen receptors and estrogen levels
CPT/HCPCS: 96402; J1950

== ENCOUNTER → 2023-01-20 | Outpatient (CLI) | payer MEDICAID ==
[2023-01-20 21:08] LABS: Estradiol <20.0 pg/mL
[2023-01-20 21:20] LABS: Follicle Stimulating Hormone 3.4 mIU/mL; Luteinizing Hormone <1.0 mIU/mL
== END | disposition home or self-care (01) ==
LOC: LABWHC1 14:12
PROVIDERS: ATTEND Internal Medicine Hematology & Oncology
DX: C50.112 Malignant neoplasm of central portion of left female breast (principal); J44.9 Chronic obstructive pulmonary disease, unspecified; G62.0 Drug-induced polyneuropathy; Z17.0 Estrogen receptor positive status [ER+]
CPT/HCPCS: 36415; 82397; 82670; 83001; 83002

== ENCOUNTER → 2023-02-01 | Outpatient (CLI) | payer MEDICAID ==
[2023-02-01 15:45] LABS: INR <0.93 sec (0.93-1.11); Prothrombin Time 10.1 sec (9.9-11.9)
[2023-02-01 15:52] LABS: HCT 38.6 % (37.2-46.3); HGB 12.2 d/dL (12.0-15.0); MCH 29.3 pg (27.0-32.0); MCHC 31.6 d/dL (32.0-37.0); MCV 92.8 FL (80.0-97.0); Mean Platelet Volume 10.3 FL (9.5-12.2); NRBC Per 100 WBC 0 X 10*3/uL (0.00-0.01); Platelet Count 251 X 10*3/uL (140-440); RBC 4.16 X 10*6/uL (4.10-5.20); RDW 13.2 % (11.5-14.5); WBC 5.12 X 10*3/uL (4.50-10.00)
[2023-02-01 16:08] LABS: ALT 22 U/L (8-44); AST 21 U/L (13-35); Albumin 5.1 d/dL (3.8-4.9); Albumin/Globulin Ratio 2.12 Ratio (1.60-3.17); Alkaline Phosphatase 74 U/L (41-126); BUN/Creat Ratio 14.38 Ratio (12.00-20.00); Blood Urea Nitrogen 11.5 mg/dL (9.0-27.0); Calcium 9.6 mg/dL (8.7-10.3); Carbon Dioxide 28.1 mmol/L (21.6-31.8); Chloride 99 mmol/L (96-109); Globulin 2.4 d/dL (1.6-3.3); Glucose 88 mg/dL (70-110); Potassium 4.3 mmol/L (3.5-5.5); Sodium 140 mmol/L (135-145); Total Bilirubin 0.2 mg/dL (0.3-1.2); Total Protein 7.5 d/dL (6.2-8.2)
[2023-02-01 17:24] LABS: Erythrocyte Sedimentation Rate 11 mm/Hr (0-30)
== END | disposition home or self-care (01) ==
LOC: LABWHC1 10:44
PROVIDERS: ATTEND Physician Assistant
DX: R21 Rash and other nonspecific skin eruption (principal)
CPT/HCPCS: 36415; 80053; 85027; 85610; 85652; 86060; 86140

== ENCOUNTER → 2023-03-15 | Outpatient (CLI) | payer MEDICAID ==
[~2023-03-15] MED LIST changes: +DENOSUMAB 60 MG/ML 1 ML SYRINGE SQ NR
[2023-03-15 12:14] VITALS: BP 118/65; PULSE 70; RESP 16; TEMP 97.9
== END ==
LOC: PROCWHC3 11:29
PROVIDERS: ATTEND Internal Medicine Hematology & Oncology
DX: C50.112 Malignant neoplasm of central portion of left female breast (principal)
CPT/HCPCS: 96372; 96402; J0897; J1950

== ENCOUNTER → 2023-03-25 | Outpatient (CLI) | payer MEDICAID | END | disposition home or self-care (01) | LOC: LABWHC1 11:32 | PROVIDERS: ATTEND Internal Medicine Endocrinology, Diabetes & Metabolism | DX: E03.8 Other specified hypothyroidism (principal) | CPT/HCPCS: 36415; 84443 ==

== ENCOUNTER 2023-05-18 07:35 | Emergency (ER) | payer MEDICAID ==
[2023-05-18 08:05] VITALS: RESP 18
[2023-05-18] MEDS ORDERED: predniSONE 50 MG TAB PO STA (08:09)
[2023-05-18] MEDS ORDERED: diphenhydrAMINE 50 MG CAP PO STA (08:09)
--- NOTE | 2023-05-18 08:19 | ED ---
General Adult HPI - General Chief complaint: Allergic Reaction Stated complaint: allergic reaction Time Seen by Provider: 05/18/23 07:47 Source: patient, RN notes reviewed Mode of arrival: ambulatory Limitations: no limitations - History of Present Illness Initial comments: Patient 57-year-old female presented to the emergency room today with a chief co mplaint of ALLERGIC reaction. Patient does admit to feeling some itching to the right shoulder that started this morning. Does have multiple reactions in the past. Patient states she did take a 24-hour ALLERGY tab before coming to work but noticed that the symptoms were getting worse. Denies any difficulty breathing, swallowing. She still just itching to the bilateral shoulders. Denies any other complaints or any other symptoms.Patient denies any recent fever, chills, shortness of breath, chest pain, back pain, abdominal pain, nausea or vomiting, headaches or visual changes, or any other complaints. - Related Data Home Medications Medication Instructions Recorded Confirmed Acetaminophen [Tylenol Extra 1,000 mg PO Q6H PRN 07/29/18 03/15/23 Strength] Levothyroxine Sodium [Synthroid] 100 mcg PO DAILY 07/30/18 03/15/23 DULoxetine HCL [Cymbalta] 60 mg PO DAILY 11/29/18 03/15/23 Anastrozole 1 tab PO DAILY 02/01/20 03/15/23 Fexofenadine HCl [Lucy Allergy] 1 tab PO DAILY 02/01/20 03/15/23 Atomoxetine HCl 60 mg PO DAILY 07/13/22 03/15/23 DULoxetine HCL [Cymbalta] 30 mg PO DAILY 07/13/22 03/15/23 Docusate [Colace] 4 tab PO DAILY 07/13/22 03/15/23 Famotidine 20 mg PO DAILY 07/13/22 03/15/23 Atogepant [Qulipta] 30 mg PO HS 01/07/23 03/15/23 Naproxen Sodium [Aleve] 220 mg PO DAILY PRN 01/07/23 03/15/23 Previous Rx's Medication Instructions Recorded predniSONE [Deltasone] 20 mg PO BID #10 tab 05/18/23 Allergies Allergy/AdvReac Type Severity Reaction Status Date / Time azithromycin Allergy Rash/Hives Verified 05/18/23 07:46 codeine Allergy Rash/Hives Verified 05/18/23 07:46 codeine phosphate Allergy Rash/Hives Verified 05/18/23 07:46 [From Tylenol-Codeine #3] hydromorphone [From Dilaudid] Allergy Rash/Hives Verified 05/18/23 07:46 Penicillins Allergy Rash/Hives Verified 05/18/23 07:46 silver Allergy Rash/Hives Verified 05/18/23 07:46 [From Tegaderm AG Mesh] tetanus toxoid, adsorbed Allergy Unknown Verified 05/18/23 07:46 Childhood morphine AdvReac Unknown Nausea & Verified 05/18/23 07:46 Vomiting, Headache Tegaderm Clear IV dressing Allergy Unknown Rash/Hives Uncoded 05/18/23 07:46 Review of Systems ROS Statement: Those systems with pertinent positive or pertinent negative responses have been documented in the HPI. ROS Other: All systems not noted in ROS Statement are negative. Past Medical History Past Medical History: Cancer, COPD, GERD/Reflux, Musculoskeletal Disorder, Thyroid Disorder Additional Past Medical History / Comment(s): BACK PAIN, migraines, DX LT BREAST CANCER- History of Any Multi-Drug Resistant Organisms: None Reported Past Surgical History: Breast Surgery, Section, Hysterectomy, Orthopedic Surgery Additional Past Surgical History / Comment(s): C/S x3, BREAST BIOPSY-CORE BIOPSY, PORT A CATH , BILAT MASTECTOMY, LYMPH NODES REMOVED FROM UNDER LT ARM, LT SHOULDER SX, COLONOSCOPY, Past Anesthesia/Blood Transfusion Reactions: No Reported Reaction Past Psychological History: Anxiety, Depression Smoking Status: Former smoker, Vaper Past Alcohol Use History: None Reported Past Drug Use History: None Reported - Past Family History Mother Family Medical History: Cancer Brother(s) Family Medical History: Cancer Additional Family Medical History / Comment(s): 2 BROTHERS WITH CANCER General Exam - General Exam Comments Initial Comments: General: The patient is awake and alert, in no distress, and does not appear acutely ill. Eye: Pupils are equal, round and reactive to light, extra-ocular movements are intact. No nystagmus. There is normal conjunctiva bilaterally. No signs of icterus. Ears, nose, mouth and throat: There are moist mucous membranes and no oral lesions. Neck: The neck is supple, there is no tenderness or JVD. Cardiovascular: There is a regular rate and rhythm. Respiratory: Lungs are clear to auscultation, respirations are non-labored, breath sounds are equal. Musculoskeletal: Normal ROM, no tenderness. Neurological: A&O x 3. CN II-XII intact, There are no obvious motor or sensory deficits. Coordination appears grossly intact. Speech is normal. Skin: Patient does have hive-like rash to the anterior left and right shoulders. Areas shama. Psychiatric: Cooperative, appropriate mood & affect, normal judgment. Limitations: no limitations Course Vital Signs 05/18/23 07:41 Temperature 98.1 F Pulse Rate 81 Respiratory 18 Rate Blood Pressure 135/62 O2 Sat by Pulse 98 Oximetry Medical Decision Making - Medical Decision Making History was obtained from patient/Nurse/ Initial assessment and chief complaint: ALLERGIC Reaction Chronic conditions affecting care: Breast cancer, thyroid disease, COPD Social determinants affecting care: None Differential diagnosis included, but not limited to: ALLERGIC reaction, contact dermatitis 57-year-old female presented to the emergency room today with a chief complaint of rash, itching to the bilateral shoulders. Dysmotility ALLERGIC reactions in the past. Patient does not that is itchy. Denies any difficulty breathing, swelling. Vital stable here in emergency room. Patient given dose of Benadryl, steroids by mouth. Patient will be discharged home with prescription for steroid. Advised to use 1-2 tabs every 6 hours of Benadryl. Advised return for any other concerns persist or sensory is agreement with the plan. Disposition Clinical Impression: Allergic reaction Disposition: HOME SELF-CARE Condition: Good Instructions (If sedation given, give patient instructions): Urticaria (ED) Additional Instructions: Please use medication as discussed. Please follow-up with family doctor in the next 2 days of symptoms have not improved. Please return to emergency room if the symptoms increase or worsen or for any other concerns. Prescriptions: predniSONE [Deltasone] 20 mg PO BID #10 tab Is patient prescribed a controlled substance at d/c from ED?: No Referrals: Kvng Jean MD [Primary Care Provider] - 1-2 days Time of Disposition: 08:19
[2023-05-18 09:20] VITALS: BP 132/76; PULSE 76; TEMP 97.9
== END 2023-05-18 09:02 | disposition home or self-care (01) ==
LOC: EC 07:35
DX: R21 Rash and other nonspecific skin eruption (principal); T45.0X5A Adverse effect of antiallergic and antiemetic drugs, initial encounter; J44.9 Chronic obstructive pulmonary disease, unspecified; E07.9 Disorder of thyroid, unspecified; K21.9 Gastro-esophageal reflux disease without esophagitis; F41.9 Anxiety disorder, unspecified; F17.290 Nicotine dependence, other tobacco product, uncomplicated; F32.A Depression, unspecified; Z79.899 Other long term (current) drug therapy; Z79.890 Hormone replacement therapy; Z88.0 Allergy status to penicillin; Z88.5 Allergy status to narcotic agent; Z88.7 Allergy status to serum and vaccine; Z88.1 Allergy status to other antibiotic agents; Z88.8 Allergy status to other drugs, medicaments and biological substances
CPT/HCPCS: 99283; J7512

== ENCOUNTER → 2023-06-17 | Outpatient (CLI) | payer MEDICAID ==
[~2023-06-17] MED LIST changes: -DENOSUMAB 60 MG/ML 1 ML SYRINGE SQ NR
[2023-06-17 14:38] VITALS: BP 130/65; PULSE 78; RESP 16; TEMP 97.9
== END ==
LOC: PROCWHC3 14:08
PROVIDERS: ATTEND Internal Medicine
DX: C50.112 Malignant neoplasm of central portion of left female breast (principal)
CPT/HCPCS: 96402; J1950

== ENCOUNTER → 2023-06-28 | Outpatient (CLI) | payer MEDICAID | END | disposition home or self-care (01) | LOC: LABWHC1 07:13 | PROVIDERS: ATTEND Internal Medicine Endocrinology, Diabetes & Metabolism | DX: E03.8 Other specified hypothyroidism (principal) | CPT/HCPCS: 36415; 84443 ==

== ENCOUNTER → 2023-12-26 | Outpatient (CLI) | payer MEDICAID | END | disposition home or self-care (01) | LOC: LABWHC1 10:16 | PROVIDERS: ATTEND Internal Medicine Endocrinology, Diabetes & Metabolism | DX: E03.8 Other specified hypothyroidism (principal) | CPT/HCPCS: 36415; 84443 ==

== ENCOUNTER 2024-01-24 10:39 | Emergency (ER) | payer MEDICAID ==
--- NOTE | 2024-01-24 10:48 | ED ---
Chest Pain HPI - General Stated Complaint: Covid+ Chest pain,YANN Time Seen by Provider: 01/24/24 10:47 Source: patient, RN notes reviewed Mode of arrival: ambulatory Limitations: no limitations - History of Present Illness Initial Comments: 58-year-old female presented to the ER with a chief complaint of a burning chest discomfort. Patient states she tested positive for COVID-19 on Tuesday. Patient went to [facility] today and spoke with the nurse who advised her to come to the ER for further evaluation of the burning chest discomfort. She states she is has been having some shortness of breath which believes that is from COVID. States the pain is burning and in central chest with no radiation. She denies any nausea, vomiting, dizziness, lightheadedness or diaphoresis. No known cardiac history. Patient denies any other complaints. - Related Data Home Medications Medication Instructions Recorded Confirmed Acetaminophen [Tylenol Extra 1,000 mg PO Q6H PRN 07/29/18 06/17/23 Strength] Levothyroxine Sodium [Synthroid] 100 mcg PO DAILY 07/30/18 06/17/23 DULoxetine HCL [Cymbalta] 60 mg PO DAILY 11/29/18 06/17/23 Anastrozole 1 tab PO DAILY 02/01/20 06/17/23 Fexofenadine HCl [Lucy Allergy] 1 tab PO DAILY 02/01/20 06/17/23 Atomoxetine HCl 60 mg PO DAILY 07/13/22 06/17/23 DULoxetine HCL [Cymbalta] 30 mg PO DAILY 07/13/22 06/17/23 Docusate [Colace] 4 tab PO DAILY 07/13/22 06/17/23 Famotidine 20 mg PO DAILY 07/13/22 06/17/23 Atogepant [Qulipta] 30 mg PO HS 01/07/23 06/17/23 Naproxen Sodium [Aleve] 220 mg PO DAILY PRN 01/07/23 06/17/23 Previous Rx's Medication Instructions Recorded predniSONE [Deltasone] 20 mg PO BID #10 tab 05/18/23 Allergies Allergy/AdvReac Type Severity Reaction Status Date / Time azithromycin Allergy Rash/Hives Verified 01/24/24 10:47 codeine Allergy Rash/Hives Verified 01/24/24 10:47 codeine phosphate Allergy Rash/Hives Verified 01/24/24 10:47 [From Tylenol-Codeine #3] hydromorphone [From Dilaudid] Allergy Rash/Hives Verified 01/24/24 10:47 Penicillins Allergy Rash/Hives Verified 01/24/24 10:47 silver Allergy Rash/Hives Verified 01/24/24 10:47 [From Tegaderm AG Mesh] tetanus toxoid, adsorbed Allergy Unknown Verified 01/24/24 10:47 Childhood morphine AdvReac Unknown Nausea & Verified 01/24/24 10:47 Vomiting, Headache Tegaderm Clear IV dressing Allergy Unknown Rash/Hives Uncoded 01/24/24 10:47 Review of Systems ROS Statement: Those systems with pertinent positive or pertinent negative responses have been documented in the HPI. ROS Other: All systems not noted in ROS Statement are negative. EKG Findings - EKG Comments: EKG Findings:: EKG taken at 11: 23 showing a sinus rhythm. T wave inversion in lead V2. No acute ST segment changes. Ventricular 65 complete interval 170, QRS duration 89, QT/QTc 390/402. Past Medical History Past Medical History: Cancer, COPD, GERD/Reflux, Musculoskeletal Disorder, Thyroid Disorder Additional Past Medical History / Comment(s): BACK PAIN, migraines, DX LT BREAST CANCER- History of Any Multi-Drug Resistant Organisms: None Reported Past Surgical History: Breast Surgery, Section, Hysterectomy, Orthopedic Surgery Additional Past Surgical History / Comment(s): C/S x3, BREAST BIOPSY-CORE BIOPSY, PORT A CATH , BILAT MASTECTOMY, LYMPH NODES REMOVED FROM UNDER LT ARM, LT SHOULDER SX, COLONOSCOPY, Past Anesthesia/Blood Transfusion Reactions: No Reported Reaction Smoking Status: Former smoker, Vaper - Past Family History Mother Family Medical History: Cancer Brother(s) Family Medical History: Cancer Additional Family Medical History / Comment(s): 2 BROTHERS WITH CANCER General Exam - General Exam Comments Initial Comments: Visual Physical Exam Vital signs reviewed General: Well-appearing, nontoxic, no acute distress. Head: Normocephalic, atraumatic Eyes: PERRLA, EOMI ENT: Airway patent Chest: Nonlabored breathing Skin: No visual rash, normal skin tone Neuro: Alert and oriented 3 Musculoskeletal: No gross abnormalities Limitations: no limitations General appearance: alert, in no apparent distress Respiratory exam: Present: normal lung sounds bilaterally. Absent: respiratory distress, wheezes, rales, rhonchi, stridor Cardiovascular Exam: Present: regular rate, normal rhythm, normal heart sounds. Absent: systolic murmur, diastolic murmur, rubs, gallop, clicks Extremities exam: Present: normal inspection, full ROM, normal capillary refill. Absent: tenderness, pedal edema, joint swelling, calf tenderness Neurological exam: Present: alert, oriented X3, CN II-XII intact Skin exam: Present: warm, dry, intact, normal color. Absent: rash Course Vital Signs 01/24/24 01/24/24 01/24/24 10:43 13:09 15:08 Temperature 97.8 F 98 F Pulse Rate 79 64 78 Respiratory 20 20 18 Rate Blood Pressure 134/82 123/73 122/68 O2 Sat by Pulse 99 98 98 Oximetry - Reevaluation(s) Reevaluation #1: 01/24/24 13:14 HEART score 2. Chest Pain MDM - MDM I performed the quick note portion of this chart. Electronically signed by Julissa Fowler PA-C Was pt. sent in by a medical professional or institution ([facility]ACOB Ragland, AIRPLANE TECHNICIAN, urgent care, hospital, or [facility]...) When possible be specific @ -No Did you speak to anyone other than the patient for history (EMS, parent, family, police, friend...)? What history was obtained from this source @ -No Did you review nursing and triage notes (agree or disagree)? Why? @ -I reviewed and agree with nursing and triage notes Were old charts reviewed (outside hosp., previous admission, EMS record, old EKG, old radiological studies, urgent care reports/EKG's, [facility] records)? Report findings @ -No old charts were reviewed Differential Diagnosis (chest pain, altered mental status, abdominal pain women, abdominal pain men, vaginal bleeding, weakness, fever, dyspnea, syncope, headache, dizziness, GI bleed, back pain, seizure, CVA, palpatations, mental health, musculoskeletal)? @ -Differential Chest Pain: Stable Angina, Unstable Angina, STEMI, NSTEMI Aortic Dissection, Pneumothorax, Musculoskeletal, Esophageal Spasm GERD, Cholecystitis, Pancreatitis, Zoster, this is not meant to be an all-inclusive list. EKG interpreted by me (3pts min.). @ -As above X-rays interpreted by me (1pt min.). @ -Chest x-ray interpreted by me negative for acute cardiopulmonary process. CT interpreted by me (1pt min.). @ -None done U/S interpreted by me (1pt. min.). @ -None done What testing was considered but not performed or refused? (CT, X-rays, U/S, labs)? Why? @ -None What meds were considered but not given or refused? Why? @ -None Did you discuss the management of the patient with other professionals (professionals i.e. , PA, AIRPLANE TECHNICIAN, lab, RT, psych nurse, social group worker, welder fabricator, teacher, admissions officer, special education case manager)? Give summary @ -No Was smoking cessation discussed for >3mins.? @ -No Was critical care preformed (if so, how long)? @ -No Were there social determinants of health that impacted care today? How? (Homelessness, low income, unemployed, alcoholism, drug addiction, transportation, low edu. Level, literacy, decrease access to med. care, correction, rehab)? @ -No Was there de-escalation of care discussed even if they declined (Discuss DNR or withdrawal of care, Hospice)? DNR status @ -No What co-morbidities impacted this encounter? (DM, HTN, Smoking, COPD, CAD, Cancer, CVA, ARF, Chemo, Hep., AIDS, mental health diagnosis, sleep apnea, morbid obesity)? @ -None Was patient admitted / discharged? Hospital course, mention meds given and route, prescriptions, significant lab abnormalities, going to OR and other pertinent info. @ -Discharge. 58-year-old female presented to the ER with a chief complaint of burning chest discomfort. History and physical exam completed. Vitals within normal limits. Patient is also COVID-positive. Patient no signs of acute distress and nontoxic-appearing. Lung sounds clear to auscultation bilaterally. Normal heart sounds. No peripheral edema. Laboratory studies obtained unremarkable. Initial troponin <0.012. Chest x-ray interpreted me negative for acute cardiopulmonary process. Patient received IV fluids and Tylenol for symptom control in the ER. Patient was offered admission for cardiac rule out patient decided to obtain second troponin instead. Second troponin less than 0.012. HEART score 2. Patient stable for discharge at this time. Symptoms believed to be viral in nature. There may be a component of acid reflux. Strict return parameters discussed. Patient discharged in stable condition with follow-up to PCP. Patient verbally expressed understanding and agreement with care plan. Case discussed with ED attending, Dr. Ryan. Undiagnosed new problem with uncertain prognosis? @ -No Drug Therapy requiring intensive monitoring for toxicity (Heparin, Nitro, Insulin, Cardizem)? @ -No Were any procedures done? @ -No Diagnosis/symptom? @ -Viral illness/noncardiac chest pain Acute, or Chronic, or Acute on Chronic? @ -Acute Uncomplicated (without systemic symptoms) or Complicated (systemic symptoms)? @ -Complicated Side effects of treatment? @ -No Exacerbation, Progression, or Severe Exacerbation? @ -No Poses a threat to life or bodily function? How? (Chest pain, [place], [place], pneumonia, PE, COPD, DKA, ARF, appy, cholecystitis, CVA, Diverticulitis, Homicidal, Suicidal, threat to staff... and all critical care pts) @ -Possibly, chest pain can mean ACS which can lead to lethal cardiac arrhythmias. Disposition Clinical Impression: Viral illness, Non-cardiac chest pain Disposition: HOME SELF-CARE Condition: Stable Instructions (If sedation given, give patient instructions): Chest Pain (DC) Additional Instructions: Please follow-up with PCP for further evaluation. Return to the ER for any new or worsening symptoms. Is patient prescribed a controlled substance at d/c from ED?: No Referrals: Kvng Jean MD [Primary Care Provider] - 1-2 days Time of Disposition: 14:50
--- NOTE | 2024-01-24 11:25 | XR ---
EXAMINATION TYPE: XR chest 2V DATE OF EXAM: 01/24/2024 COMPARISON: 10/09/2018 HISTORY: 58-year-old female cough, COVID positive TECHNIQUE: PA and lateral views FINDINGS: Heart normal size. Aorta and pulmonary vasculature are within normal limits. Surgical clips projectin g at both anterior chest cross. Interstitial prominence and mild hyperinflation is similar. No renee consolidation or pleural effusion. IMPRESSION: COPD. Increased interstitial densities are relatively similar suggesting a more chronic etiology. Sub tle underlying interstitial infiltrates would be difficult to exclude. Otherwise, no acute process.
[2024-01-24 11:36] LABS: Basophils % (A) 1 %; Eosinophils % (A) 1 %; HCT 39.2 % (34.0-46.0); HGB 13.1 gm/dL (11.4-16.0); Lymphocytes # (A) 0.9 k/uL (1.0-4.8); Lymphocytes % (A) 27 %; MCH 29.2 pg (25.0-35.0); MCHC 33.5 g/dL (31.0-37.0); MCV 87.2 fL (80.0-100.0); Mean Platelet Volume 8.5; Monocytes # (A) 0.1 k/uL (0-1.0); Monocytes % (A) 4 %; Neutrophils # (A) 2.1 k/uL (1.3-7.7); Neutrophils % (A) 66 %; Platelet Count 223 k/uL (150-450); RDW 13.2 % (11.5-15.5); WBC 3.2 k/uL (3.8-10.6)
[2024-01-24 11:45] LABS: INR 0.9 (<1.2); Partial Thromboplastin Time 23.7 sec (22.0-30.0); Prothrombin Time 9.7 sec (10.0-12.5)
[2024-01-24 11:54] LABS: ALT 17 U/L (4-34); AST 22 U/L (14-36); African American GFR (CKD) >90 (>60 ml/min/1.73 sqM); Albumin 4.8 g/dL (3.5-5.0); Alkaline Phosphatase 109 U/L (38-126); Anion Gap 3 mmol/L; Blood Urea Nitrogen 10 mg/dL (7-17); Calcium 9.7 mg/dL (8.4-10.2); Carbon Dioxide 30 mmol/L (22-30); Chloride 101 mmol/L (98-107); Glucose 93 mg/dL (74-99); Magnesium 2.1 mg/dL (1.6-2.3); Non-African American GFR(CKD) >90 (>60 ml/min/1.73 sqM); Potassium 4.2 mmol/L (3.5-5.1); Sodium 134 mmol/L (137-145); Total Bilirubin 0.4 mg/dL (0.2-1.3); Total Protein 7.7 g/dL (6.3-8.2)
[2024-01-24 13:12] VITALS: TEMP 98
[2024-01-24] MEDS: ACETAMINOPHEN TAB 325 MG TAB PO STA (13:20)
[2024-01-24] MEDS: SODIUM CHLORIDE 0.9% 1,000 ML IV STA (13:21)
[2024-01-24 15:09] VITALS: BP 122/68; PULSE 78; RESP 18
== END 2024-01-24 15:10 | disposition home or self-care (01) ==
LOC: EC 10:39
DX: U07.1 COVID-19 (principal); Z87.891 Personal history of nicotine dependence; Z88.1 Allergy status to other antibiotic agents; Z88.0 Allergy status to penicillin; Z88.5 Allergy status to narcotic agent; Z88.7 Allergy status to serum and vaccine; Z88.8 Allergy status to other drugs, medicaments and biological substances
CPT/HCPCS: 36415; 71046; 80053; 83735; 84484; 85025; 85610; 85730; 93005; 99285

== ENCOUNTER 2024-06-11 11:23 | Emergency (ER) | payer MEDICAID ==
[2024-06-11 11:34] VITALS: TEMP 97.5
--- NOTE | 2024-06-11 12:02 | ED ---
Abdominal Pain HPI - General Source: patient, RN notes reviewed Mode of arrival: ambulatory Limitations: no limitations <Christine Fowler - Last Filed: 06/11/24 15:21> <Cary Garcia - Last Filed: 06/11/24 19:34> - General Chief Complaint: Abdominal Pain Stated Complaint: Vomiting,Abd pain Time Seen by Provider: 06/11/24 12:02 - History of Present Illness Initial Comments: 58-year-old female presented to the ER for evaluation of nausea, vomiting and abdominal pain. Patient reports for the past 2 weeks she has been ill with influenza A. Patient states she did an at home swab 2 weeks ago which was p ositive. Patient states she has not gotten any better and today she was seen at urgent care and sent to the ER to further evaluate her symptoms. Patient reports severe epigastric/right upper quadrant abdominal pain. She states it is sharp in nature.. She states she is extremely nauseous with vomiting as well. Patient has not taken anything for symptoms at this time. Patient does report hot and cold chills but states she contributed this to influenza. She denies any chest pain, shortness of breath, dizziness or lightheadedness. Patient does report recent bouts of diarrhea. No hematochezia or melena. No hematic emesis. No urinary complaints or peripheral edema. (Christine Fowler) - Related Data Home Medications Medication Instructions Recorded Confirmed Atomoxetine HCl 60 mg PO DAILY 07/13/22 06/11/24 Desvenlafaxine Succinate [Pristiq 50 mg PO DAILY 06/11/24 06/11/24 ER] Levothyroxine Sodium [Synthroid] 100 mcg PO DAILY 06/11/24 06/11/24 Linaclotide [Linzess] 72 mcg PO DAILY 06/11/24 06/11/24 Loratadine [Claritin] 10 mg PO DAILY 06/11/24 06/11/24 Previous Rx's Medication Instructions Recorded Ondansetron Odt [Zofran Odt] 4 mg PO Q8HR PRN #30 tab 06/11/24 Prochlorperazine [Compazine] 10 mg PO Q6H PRN #30 tab 06/11/24 Allergies Allergy/AdvReac Type Severity Reaction Status Date / Time acetaminophen [From NyQuil] Allergy Rash/Hives Verified 06/11/24 14:17 azithromycin Allergy Rash/Hives Verified 06/11/24 14:17 codeine Allergy Rash/Hives Verified 06/11/24 14:17 codeine phosphate Allergy Rash/Hives Verified 06/11/24 14:17 [From Tylenol-Codeine #3] dextromethorphan Allergy Rash/Hives Verified 06/11/24 14:17 [From NyQuil] doxylamine [From NyQuil] Allergy Rash/Hives Verified 06/11/24 14:17 hydromorphone [From Dilaudid] Allergy Rash/Hives Verified 06/11/24 14:17 Penicillins Allergy Rash/Hives Verified 06/11/24 14:17 pseudoephedrine [From NyQuil] Allergy Rash/Hives Verified 06/11/24 14:17 silver Allergy Rash/Hives Verified 06/11/24 14:17 [From Tegaderm AG Mesh] tetanus toxoid, adsorbed Allergy Unknown Verified 06/11/24 14:17 Childhood morphine AdvReac Unknown Nausea & Verified 06/11/24 14:17 Vomiting, Headache Tegaderm Clear IV dressing Allergy Unknown Rash/Hives Uncoded 06/11/24 11:34 Review of Systems ROS Other: All systems not noted in ROS Statement are negative. <Christine Fowler - Last Filed: 06/11/24 15:21> ROS Other: All systems not noted in ROS Statement are negative. <Cary Garcia - Last Filed: 06/11/24 19:34> ROS Statement: Those systems with pertinent positive or pertinent negative responses have been documented in the HPI. Past Medical History Past Medical History: Cancer, COPD, GERD/Reflux, Musculoskeletal Disorder, Thyroid Disorder Additional Past Medical History / Comment(s): BACK PAIN, migraines, DX LT BREAST CANCER- History of Any Multi-Drug Resistant Organisms: None Reported Past Surgical History: Breast Surgery, Section, Hysterectomy, Orthopedic Surgery Additional Past Surgical History / Comment(s): C/S x3, BREAST BIOPSY-CORE BIOPSY, PORT A CATH , BILAT MASTECTOMY, LYMPH NODES REMOVED FROM UNDER LT ARM, LT SHOULDER SX, COLONOSCOPY, Past Anesthesia/Blood Transfusion Reactions: No Reported Reaction Past Psychological History: Anxiety, Depression Smoking Status: Current every day smoker, Vaper Past Alcohol Use History: None Reported Past Drug Use History: None Reported - Past Family History Mother Family Medical History: Cancer Brother(s) Family Medical History: Cancer Additional Family Medical History / Comment(s): 2 BROTHERS WITH CANCER <Christine Fowler - Last Filed: 06/11/24 15:21> General Exam Limitations: no limitations General appearance: alert, in no apparent distress Respiratory exam: Present: normal lung sounds bilaterally. Absent: respiratory distress, wheezes, rales, rhonchi, stridor Cardiovascular Exam: Present: regular rate, normal rhythm, normal heart sounds. Absent: systolic murmur, diastolic murmur, rubs, gallop, clicks GI/Abdominal exam: Present: soft, tenderness (Epigastric/RUQ), normal bowel sounds Neurological exam: Present: alert, oriented X3, CN II-XII intact Skin exam: Present: warm, dry, intact, normal color. Absent: rash <Christine Fowler - Last Filed: 06/11/24 15:21> Course Vital Signs 06/11/24 06/11/24 06/11/24 11:30 15:00 17:23 Temperature 97.5 F L Pulse Rate 73 56 L 64 Respiratory 18 16 18 Rate Blood Pressure 150/78 127/75 121/71 O2 Sat by Pulse 99 99 99 Oximetry Medical Decision Making - Lab Data Result diagrams: 06/11/24 12:09 06/11/24 12:09 - EKG Data -: EKG Interpreted by Sd - Radiology Data Radiology results: report reviewed, image reviewed <JanethChristine - Last Filed: 06/11/24 15:21> - Lab Data Result diagrams: 06/11/24 12:09 06/11/24 12:09 <Cary Garcia - Last Filed: 06/11/24 19:34> - Medical Decision Making Was pt. sent in by a medical professional or institution (, PA, MILK VENDOR, urgent care, hospital, or [facility]...) When possible be specific @ -Urgent care for evaluation of epigastric abdominal pain and nausea Did you speak to anyone other than the patient for history (EMS, parent, family, police, friend...)? What history was obtained from this source @ -No Did you review nursing and triage notes (agree or disagree)? Why? @ -I reviewed and agree with nursing and triage notes Were old charts reviewed (outside hosp., previous admission, EMS record, old EKG, old radiological studies, urgent care reports/EKG's, [facility] records)? Report findings @ -No old charts were reviewed Differential Diagnosis (chest pain, altered mental status, abdominal pain women, abdominal pain men, vaginal bleeding, weakness, fever, dyspnea, syncope, headache, dizziness, GI bleed, back pain, seizure, CVA, palpatations, mental health, musculoskeletal)? @ -Differential Abdominal Pain Women: Appendicitis, Cholecystitis, diverticulosis, ischemic bowel, pancreatitis, hepatitis, UTI, gastroenteritis, AAA, incarcerated hernia, bowel obstruction, constipation, inflammatory bowel, hepatitis, peptic ulcer disease, splenic infarction, perforated viscus, vulvitis, ovarian torsion, PID, kidney stone, placenta abruption, this is not meant to be an all-inclusive list EKG interpreted by me (3pts min.). @ -As above X-rays interpreted by me (1pt min.). @ -None done CT interpreted by me (1pt min.). @ -CT abdomen pelvis showing cholelithiasis and stable hypodensity in the left lower liver. No suspicious changes to account for epigastric pain. U/S interpreted by me (1pt. min.). @ -Gallbladder ultrasound showing cholelithiasis. No acute evidence of cholecystitis. What testing was considered but not performed or refused? (CT, X-rays, U/S, labs)? Why? @ -None What meds were considered but not given or refused? Why? @ -None Did you discuss the management of the patient with other professionals (professionals i.e. , PA, MILK VENDOR, lab, RT, psych nurse, social services designee, ladle patcher, teacher, casino surveillance officer, rn case manager hospice)? Give summary @ -No Was smoking cessation discussed for >3mins.? @ -No Was critical care preformed (if so, how long)? @ -No Were there social determinants of health that impacted care today? How? (Homelessness, low income, unemployed, alcoholism, drug addiction, transportation, low edu. Level, literacy, decrease access to med. care, correction, rehab)? @ -No Was there de-escalation of care discussed even if they declined (Discuss DNR or withdrawal of care, Hospice)? DNR status @ -No What co-morbidities impacted this encounter? (DM, HTN, Smoking, COPD, CAD, Cancer, CVA, ARF, Chemo, Hep., AIDS, mental health diagnosis, sleep apnea, morbid obesity)? @ -None Was patient admitted / discharged? Hospital course, mention meds given and route, prescriptions, significant lab abnormalities, going to OR and other pertinent info. @ -58-year-old female presented the ER for evaluation of nausea and abdominal p ain. Upon rooming, history and physical exam completed. Vitals within acceptable limits. Patient in no signs of acute distress but is laying in the position. There is focal abdominal tenderness to the epigastric region. Upon laying patient flat for examination patient did have episode of emesis. Laboratory studies and gallbladder ultrasound would be obtained along with symptomatic treatment with IV fluids, Toradol and Zofran. Laboratory studies unremarkable. Urinalysis with trace blood and 2+ ketones which is likely due to vomiting and dehydration. Viral swabs negative. Gallbladder ultrasound showing cholelithiasis no evidence of acute cholecystitis. CT abdomen pelvis performed at that time as patient reporting continued nausea and pain. CT negative for acute process to account for epigastric pain. Troponin at that time negative. EKG showing sinus bradycardia. Upon reevaluation, patient resting comfortably on stretcher no signs of acute distress. Patient reporting continued nausea for which she received IV Reglan and Pepcid. Patient signed out to Cary Garcia PA-C pending disposition. (Christine Fowler) Case signed out to me by Christine Fowler PA-C, at shift completion. Patient had been experiencing nausea and vomiting along with epigastric and right upper quadrant pain. Lab work was relatively unremarkable. Gallbladder ultrasound did reveal cholelithiasis without evidence of acute cholecystitis. Her pain was well-controlled, however she was signed out to me pending management of the nausea. She did find the Reglan and famotidine somewhat helpful, however she was still nauseous. She was then given a dose of Compazine and felt like her nausea then resolved. She was tolerating oral intake and was comfortable with discharge home. Rx for Zofran and Compazine provided. She was also given information for follow-up with general surgery and advised to contact them for a follow-up appointment regarding the gallstones. Advised she follow a bland and low-fat diet for the meantime to reduce the risk of symptom recurrence. Patient discharged home in stable condition. Case discussed with ED attending Dr. Peterson saucedo. Return precautions reviewed in depth, the patient is instructed to return to the emergency department with any new, worsening, or concerning symptoms. Patient verbalized understanding. (Cary Garcia) - Lab Data Lab Results 06/11/24 06/11/24 06/11/24 Range/Units 12:09 12:09 12:09 WBC 4.9 (3.8-10.6) k/uL RBC 4.66 (3.80-5.40) m/uL Hgb 13.2 (11.4-16.0) gm/dL Hct 39.9 (34.0-46.0) % MCV 85.7 (80.0-100.0) fL MCH 28.3 (25.0-35.0) pg MCHC 33.0 (31.0-37.0) g/dL RDW 12.9 (11.5-15.5) % Plt Count 266 (150-450) k/uL MPV 7.5 Neutrophils % 76 % Lymphocytes % 18 % Monocytes % 4 % Eosinophils % 0 % Basophils % 0 % Neutrophils # 3.7 (1.3-7.7) k/uL Lymphocytes # 0.9 L (1.0-4.8) k/uL Monocytes # 0.2 (0-1.0) k/uL Eosinophils # 0.0 (0-0.7) k/uL Basophils # 0.0 (0-0.2) k/uL Sodium 137 (137-145) mmol/L Potassium 3.9 (3.5-5.1) mmol/L Chloride 96 L (98-107) mmol/L Carbon Dioxide 29 (22-30) mmol/L Anion Gap 12 mmol/L BUN 14 (7-17) mg/dL Creatinine 0.75 (0.52-1.04) mg/dL Est GFR (CKD-EPI)AfAm >90 (>60 ml/min/1.73 sqM) Est GFR (CKD-EPI)NonAf 90 (>60 ml/min/1.73 sqM) Glucose 109 H (74-99) mg/dL Plasma Lactic Acid Daniel (0.7-2.0) mmol/L Calcium 9.8 (8.4-10.2) mg/dL Total Bilirubin 0.4 (0.2-1.3) mg/dL AST 20 (14-36) U/L ALT 14 (4-34) U/L Alkaline Phosphatase 107 (38-126) U/L Troponin I (0.000-0.034) ng/mL Total Protein 7.9 (6.3-8.2) g/dL Albumin 4.8 (3.5-5.0) g/dL Amylase 78 (30-110) U/L Lipase 78 (23-300) U/L Urine Color Yellow Urine Appearance Clear (Clear) Urine pH 5.5 (5.0-8.0) Ur Specific [place] 1.030 (1.001-1.035) Urine Protein Trace H (Negative) Urine Glucose (UA) Negative (Negative) Urine Ketones 2+ H (Negative) Urine Blood Trace H (Negative) Urine Nitrite Negative (Negative) Urine Bilirubin Negative (Negative) Urine Urobilinogen <2.0 (<2.0) mg/dL Ur Leukocyte Esterase Negative (Negative) Urine RBC 1 (0-5) /hpf Urine WBC 1 (0-5) /hpf Ur Squamous Epith Cells <1 (0-4) /hpf Urine Mucus Moderate H (None) /hpf Influenza Type A (PCR) (Not Detectd) Influenza Type B (PCR) (Not Detectd) RSV (PCR) (Not Detectd) SARS-CoV-2 (PCR) (Not Detectd) 06/11/24 06/11/24 06/11/24 Range/Units 12:09 12:13 14:07 WBC (3.8-10.6) k/uL RBC (3.80-5.40) m/uL Hgb (11.4-16.0) gm/dL Hct (34.0-46.0) % MCV (80.0-100.0) fL MCH (25.0-35.0) pg MCHC (31.0-37.0) g/dL RDW (11.5-15.5) % Plt Count (150-450) k/uL MPV Neutrophils % % Lymphocytes % % Monocytes % % Eosinophils % % Basophils % % Neutrophils # (1.3-7.7) k/uL Lymphocytes # (1.0-4.8) k/uL Monocytes # (0-1.0) k/uL Eosinophils # (0-0.7) k/uL Basophils # (0-0.2) k/uL Sodium (137-145) mmol/L Potassium (3.5-5.1) mmol/L Chloride (98-107) mmol/L Carbon Dioxide (22-30) mmol/L Anion Gap mmol/L BUN (7-17) mg/dL Creatinine (0.52-1.04) mg/dL Est GFR (CKD-EPI)AfAm (>60 ml/min/1.73 sqM) Est GFR (CKD-EPI)NonAf (>60 ml/min/1.73 sqM) Glucose (74-99) mg/dL Plasma Lactic Acid Daniel 1.1 (0.7-2.0) mmol/L Calcium (8.4-10.2) mg/dL Total Bilirubin (0.2-1.3) mg/dL AST (14-36) U/L ALT (4-34) U/L Alkaline Phosphatase (38-126) U/L Troponin I <0.012 (0.000-0.034) ng/mL Total Protein (6.3-8.2) g/dL Albumin (3.5-5.0) g/dL Amylase (30-110) U/L Lipase (23-300) U/L Urine Color Urine Appearance (Clear) Urine pH (5.0-8.0) Ur Specific [place] (1.001-1.035) Urine Protein (Negative) Urine Glucose (UA) (Negative) Urine Ketones (Negative) Urine Blood (Negative) Urine Nitrite (Negative) Urine Bilirubin (Negative) Urine Urobilinogen (<2.0) mg/dL Ur Leukocyte Esterase (Negative) Urine RBC (0-5) /hpf Urine WBC (0-5) /hpf Ur Squamous Epith Cells (0-4) /hpf Urine Mucus (None) /hpf Influenza Type A (PCR) Not Detected (Not Detectd) Influenza Type B (PCR) Not Detected (Not Detectd) RSV (PCR) Not Detected (Not Detectd) SARS-CoV-2 (PCR) Not Detected (Not Detectd) - EKG Data EKG Comments: EKG taken at 13: 53 showing a sinus bradycardia. No ST segment elevations or depressions. T wave inversions in anterior leads. Ventricular rate 58, FL interval 189, QRS duration 100, QT/QTc 435/432. (Christine Fowler) Disposition <Christine Fowler - Last Filed: 06/11/24 15:21> Is patient prescribed a controlled substance at d/c from ED?: No Time of Disposition: 17:09 <Cary Garcia - Last Filed: 06/11/24 19:34> Clinical Impression: Nausea and vomiting, Biliary colic, Gallstones Disposition: HOME SELF-CARE Instructions (If sedation given, give patient instructions): Biliary Colic (ED), Gallstones (ED), Acute Nausea and Vomiting (ED) Additional Instructions: Return to the emergency department with any new, worsening, or concerning symptoms. Take the Zofran up to every 8 hours as needed for nausea and vomiting. You can take the Compazine up to every 6 hours as needed for nausea and vomiting. Slowly advance your diet as tolerated and remain well-hydrated. Try to follow a bland and low-fat diet for the meantime to reduce the risk of the pain recurring. Contact the general surgery office listed below. Let them know that you were seen in the emergency department and found to have gallstones. Follow up with your primary care provider in 1-2 days. Prescriptions: Prochlorperazine [Compazine] 10 mg PO Q6H PRN #30 tab PRN Reason: Nausea And Vomiting Ondansetron Odt [Zofran Odt] 4 mg PO Q8HR PRN #30 tab PRN Reason: Nausea And Vomiting Referrals: Kvng Jean MD [Primary Care Provider] - 1-2 days Gildardo Trammell MD [STAFF PHYSICIAN] - 1-2 days
[2024-06-11 12:28] LABS: Basophils % (A) 0 %; Eosinophils % (A) 0 %; HCT 39.9 % (34.0-46.0); HGB 13.2 gm/dL (11.4-16.0); Lymphocytes # (A) 0.9 k/uL (1.0-4.8); Lymphocytes % (A) 18 %; MCH 28.3 pg (25.0-35.0); MCV 85.7 fL (80.0-100.0); Mean Platelet Volume 7.5; Monocytes # (A) 0.2 k/uL (0-1.0); Monocytes % (A) 4 %; Neutrophils # (A) 3.7 k/uL (1.3-7.7); Neutrophils % (A) 76 %; Platelet Count 266 k/uL (150-450); RBC 4.66 m/uL (3.80-5.40); RDW 12.9 % (11.5-15.5); WBC 4.9 k/uL (3.8-10.6)
[2024-06-11] MEDS: ONDANSETRON 4 MG/2 ML VIAL IVP STA (12:31)
[2024-06-11] MEDS: KETOROLAC 15 MG/ML 1 ML VIAL IVP STA (12:31)
[2024-06-11] MEDS: SODIUM CHLORIDE 0.9% 1,000 ML IV STA (12:31)
[2024-06-11 12:32] LABS: Appearance,Urine Clear (Clear); Bilirubin,Urine Negative (Negative); Blood,Urine Trace (Negative); Color,Urine Yellow; Glucose,Urine (UA) Negative (Negative); Ketones,Urine 2+ (Negative); Leukocyte Esterase,Urine Negative (Negative); Mucus,Urine Moderate /hpf; Nitrite,Urine Negative (Negative); PH, Urine 5.5 (5.0-8.0); Protein,Urine Trace (Negative); RBC,Urine 1 /hpf (0-5); Squamous Epithelial Cell,Urine <1 /hpf (0-4); Urobilinogen,Urine <2.0 mg/dL (<2.0); WBC,Urine 1 /hpf (0-5)
[2024-06-11 12:40] LABS: ALT 14 U/L (4-34); AST 20 U/L (14-36); African American GFR (CKD) >90 (>60 ml/min/1.73 sqM); Albumin 4.8 g/dL (3.5-5.0); Alkaline Phosphatase 107 U/L (38-126); Amylase 78 U/L (30-110); Anion Gap 12 mmol/L; Blood Urea Nitrogen 14 mg/dL (7-17); Calcium 9.8 mg/dL (8.4-10.2); Carbon Dioxide 29 mmol/L (22-30); Chloride 96 mmol/L (98-107); Glucose 109 mg/dL (74-99); Lipase 78 U/L (23-300); Non-African American GFR(CKD) 90 (>60 ml/min/1.73 sqM); Potassium 3.9 mmol/L (3.5-5.1); Sodium 137 mmol/L (137-145); Total Bilirubin 0.4 mg/dL (0.2-1.3); Total Protein 7.9 g/dL (6.3-8.2)
--- NOTE | 2024-06-11 12:44 | US ---
EXAMINATION TYPE: US gallbladder DATE OF EXAM: 06/11/2024 COMPARISON: CT abdomen and pelvis 06/09/2022 CLINICAL INDICATION: Female, 58 years old with history of RUQ/ epigastric abd pain. N/V;Nausea and vo miting. TECHNIQUE: Grayscale and color Doppler imaging of the right upper quadrant was performed. 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 Evidence for sonographic Lee's sign: no CBD: upper limits Right Kidney: No hydronephrosis or masses seen Pancreas and liver appear within normal limits without focal lesion. Cholelithiasis is identified. No wall thickening or surrounding fluid. Negative sonographic Lee sign. Common bile duct is within n ormal limits. No right hydronephrosis, shadowing renal calculi or solid mass. IMPRESSION: Cholelithiasis without ultrasound evidence for acute cholecystitis. [facility], , 06/11/2024 12:41 PM
[2024-06-11 13:09] LABS: Influenza A Not Detected (Not Detectd); Influenza B Not Detected (Not Detectd); RSV Not Detected (Not Detectd)
--- NOTE | 2024-06-11 13:14 | CT ---
EXAMINATION TYPE: CT abdomen pelvis w con DATE OF EXAM: 06/11/2024 1:08 PM COMPARISON: 06/09/2022 CLINICAL INDICATION: Female, 58 years old with history of epi gastric abd pain n/v, EPIGASTRIC PAIN TECHNIQUE: Axial images were obtained from above the diaphragm to the pubic rami in the axial plane a t 5 mm thick sections. Reconstructed images are reviewed on the computer in the coronal plane. CONTRAST: 100 mL of Isovue 300. Study performed without Oral Contrast DLP: 532 mGycm, Automated exposure control for dose reduction was used. FINDINGS: Limited CT sections are obtained the lung bases. The lung bases are clear. CT ABDOMEN: Liver: There is an ill-defined hypodensity measuring 1.1 cm stable from comparison within the left lo be liver. Series 201 image 22. Spleen: Normal Pancreas: Normal Adrenal glands: The adrenal glands are normal. Gallbladder: Gallstones present. Kidneys: No masses are evident. No hydronephrosis is present. No cysts are present. Delayed images were obtained through the kidneys, which remain unremarkable. Aorta: Vascular calcification is within the aorta. Inferior vena cava: Normal. CT PELVIS: Loops of bowel within the abdomen and pelvis are normal. There are loops of bowel which are incom pletely distended or lack oral contrast limiting their evaluation. Appendix: Normal as visualized. Urinary bladder: Normal. Genitourinary structures: Uterus and ovaries are not identified. Osseous structures: No suspicious lytic or sclerotic lesions. IMPRESSION: 1. No suspicious changes to account for epigastric pain. 2. Cholelithiasis. 3. Stable hypodensity within the left lobe liver [facility], , 06/11/2024 1:12 PM
[2024-06-11] MEDS: METOCLOPRAMIDE 5 MG/ML 2 ML VIAL IVP STA (15:08)
[2024-06-11] MEDS: FAMOTIDINE 20 MG/2 ML VIAL IV STA (15:52)
[2024-06-11] MEDS: PROCHLORPERAZINE INJ 10 MG/2 ML VIAL IVP STA (16:23)
[2024-06-11] MEDS: ONDANSETRON 4 MG ODT STARTER PACK 2 TAB BTL PO STA (17:19)
[2024-06-11 17:24] VITALS: BP 121/71; PULSE 64; RESP 18
== END 2024-06-11 17:23 | disposition home or self-care (01) ==
LOC: EC 11:23
DX: K80.70 Calculus of gallbladder and bile duct without cholecystitis without obstruction (principal); F17.290 Nicotine dependence, other tobacco product, uncomplicated; Z88.0 Allergy status to penicillin; Z88.5 Allergy status to narcotic agent; Z88.6 Allergy status to analgesic agent; Z88.7 Allergy status to serum and vaccine; Z88.8 Allergy status to other drugs, medicaments and biological substances; Z11.52 Encounter for screening for COVID-19
CPT/HCPCS: 36415; 93005; 80053; 82150; 83605; 83690; 84484; 85025; 81001; 87636; 76705; 74177; 99284; 96374; 96375; 96361; J0780; J2765; J2405; J3490; J1885; S0119; Q9967

== ENCOUNTER 2024-06-15 06:01 | Emergency (ER) | payer MEDICAID ==
[2024-06-15 06:09] VITALS: RESP 16
--- NOTE | 2024-06-15 06:33 | ED ---
General Adult HPI - General Chief complaint: Allergic Reaction Stated complaint: Reaction to Medicaiton, Rash Time Seen by Provider: 06/15/24 06:10 Source: patient, RN notes reviewed Mode of arrival: ambulatory - History of Present Illness Initial comments: 58-year-old female presents to the emergency department for rash on her trunk. Patient reports that she noticed that this morning when she woke up and went to change her clothes. She states she recently started Compazine and Zofran for nausea and vomiting. Patient on new medications for her. She states that she took this last night before going to bed. She reports that an extensive list of allergies with similar reactions. She denies any shortness of breath, fever, chills. - Related Data Home Medications Medication Instructions Recorded Confirmed Atomoxetine HCl 60 mg PO DAILY 07/13/22 06/11/24 Desvenlafaxine Succinate [Pristiq 50 mg PO DAILY 06/11/24 06/11/24 ER] Levothyroxine Sodium [Synthroid] 100 mcg PO DAILY 06/11/24 06/11/24 Linaclotide [Linzess] 72 mcg PO DAILY 06/11/24 06/11/24 Loratadine [Claritin] 10 mg PO DAILY 06/11/24 06/11/24 Previous Rx's Medication Instructions Recorded Ondansetron Odt [Zofran Odt] 4 mg PO Q8HR PRN #30 tab 06/11/24 Prochlorperazine [Compazine] 10 mg PO Q6H PRN #30 tab 06/11/24 Allergies Allergy/AdvReac Type Severity Reaction Status Date / Time acetaminophen [From NyQuil] Allergy Rash/Hives Verified 06/15/24 06:09 azithromycin Allergy Rash/Hives Verified 06/15/24 06:09 codeine Allergy Rash/Hives Verified 06/15/24 06:09 codeine phosphate Allergy Rash/Hives Verified 06/15/24 06:09 [From Tylenol-Codeine #3] dextromethorphan Allergy Rash/Hives Verified 06/15/24 06:09 [From NyQuil] doxylamine [From NyQuil] Allergy Rash/Hives Verified 06/15/24 06:09 hydromorphone [From Dilaudid] Allergy Rash/Hives Verified 06/15/24 06:09 Penicillins Allergy Rash/Hives Verified 06/15/24 06:09 pseudoephedrine [From NyQuil] Allergy Rash/Hives Verified 06/15/24 06:09 silver Allergy Rash/Hives Verified 06/15/24 06:09 [From Tegaderm AG Mesh] tetanus toxoid, adsorbed Allergy Unknown Verified 06/15/24 06:09 Childhood morphine AdvReac Unknown Nausea & Verified 06/15/24 06:09 Vomiting, Headache Tegaderm Clear IV dressing Allergy Unknown Rash/Hives Uncoded 06/15/24 06:09 Review of Systems ROS Statement: Those systems with pertinent positive or pertinent negative responses have been documented in the HPI. ROS Other: All systems not noted in ROS Statement are negative. Past Medical History Past Medical History: Cancer, COPD, GERD/Reflux, Musculoskeletal Disorder, Thyroid Disorder Additional Past Medical History / Comment(s): BACK PAIN, migraines, DX LT BREAST CANCER- History of Any Multi-Drug Resistant Organisms: None Reported Past Surgical History: Breast Surgery, Section, Hysterectomy, Orthopedic Surgery Additional Past Surgical History / Comment(s): C/S x3, BREAST BIOPSY-CORE BIOPSY, PORT A CATH , BILAT MASTECTOMY, LYMPH NODES REMOVED FROM UNDER LT ARM, LT SHOULDER SX, COLONOSCOPY, Past Anesthesia/Blood Transfusion Reactions: No Reported Reaction Past Psychological History: Anxiety, Depression Smoking Status: Current every day smoker, Vaper Past Alcohol Use History: None Reported Past Drug Use History: None Reported - Past Family History Mother Family Medical History: Cancer Brother(s) Family Medical History: Cancer Additional Family Medical History / Comment(s): 2 BROTHERS WITH CANCER General Exam Limitations: no limitations General appearance: alert, in no apparent distress Head exam: Present: atraumatic, normocephalic, normal inspection Eye exam: Present: normal appearance, PERRL, EOMI. Absent: scleral icterus, conjunctival injection, periorbital swelling Respiratory exam: Present: normal lung sounds bilaterally. Absent: respiratory distress, wheezes, rales, rhonchi, stridor Cardiovascular Exam: Present: regular rate, normal rhythm, normal heart sounds. Absent: systolic murmur, diastolic murmur, rubs, gallop, clicks Neurological exam: Present: alert, oriented X3 Psychiatric exam: Present: normal affect, normal mood Skin exam: Present: warm, dry, intact, other (Erythematous blanching rash throughout the chest and back and surrounding the ears, sparing the extremities). Absent: normal color Course Vital Signs 06/15/24 06:06 Temperature 97.5 F L Pulse Rate 71 Respiratory 16 Rate Blood Pressure 127/91 O2 Sat by Pulse 99 Oximetry Medical Decision Making - Medical Decision Making Was pt. sent in by a medical professional or institution (JACOB Ragland, INSULATING MACHINE OPERATOR, urgent care, hospital, or correction...) When possible be specific @ -No Did you speak to anyone other than the patient for history (EMS, parent, family, police, friend...)? What history was obtained from this source @ -No Did you review nursing and triage notes (agree or disagree)? Why? @ -I reviewed and agree with nursing and triage notes Were old charts reviewed (outside hosp., previous admission, EMS record, old EKG, old radiological studies, urgent care reports/EKG's, correction records)? Report findings @ -No old charts were reviewed Differential Diagnosis (chest pain, altered mental status, abdominal pain women, abdominal pain men, vaginal bleeding, weakness, fever, dyspnea, syncope, headache, dizziness, GI bleed, back pain, seizure, CVA, palpatations, mental health, musculoskeletal)? @ -Allergic reaction, anaphylaxis, shingles, viral exanthem, this list is not all inclusive EKG interpreted by me (3pts min.). @ -None X-rays interpreted by me (1pt min.). @ -None done CT interpreted by me (1pt min.). @ -None done U/S interpreted by me (1pt. min.). @ -None done What testing was considered but not performed or refused? (CT, X-rays, U/S, labs)? Why? @ -None What meds were considered but not given or refused? Why? @ -None Did you discuss the management of the patient with other professionals (professionals i.e. JACOB Ragland, INSULATING MACHINE OPERATOR, lab, RT, psych nurse, social staff worker, longwall shearer operator, teacher, loan servicing officer, case fitter)? Give summary @ -No Was smoking cessation discussed for >3mins.? @ -No Was critical care preformed (if so, how long)? @ -No Were there social determinants of health that impacted care today? How? (Homelessness, low income, unemployed, alcoholism, drug addiction, transportation, low edu. Level, literacy, decrease access to med. care, fci, rehab)? @ -No Was there de-escalation of care discussed even if they declined (Discuss DNR or withdrawal of care, Hospice)? DNR status @ -No What co-morbidities impacted this encounter? (DM, HTN, Smoking, COPD, CAD, Cancer, CVA, ARF, Chemo, Hep., AIDS, mental health diagnosis, sleep apnea, morbid obesity)? @ -None Was patient admitted / discharged? Hospital course, mention meds given and route, prescriptions, significant lab abnormalities, going to OR and other pertinent info. @ -Discharge. Patient presented the emergency department for evaluation of rash on her trunk. Patient reports starting new medication. She is not having any difficulty breathing. Patient was provided an allergy cocktail with Solu- Medrol, Benadryl, Pepcid. She has no further symptoms. She will be discharged home. Advised to follow-up with their primary care provider. Return precautions discussed. Patient understanding agreeable with plan. Patient stable at time of discharge. Case discussed with Dr. Aiken Undiagnosed new problem with uncertain prognosis? @ -No Drug Therapy requiring intensive monitoring for toxicity (Heparin, Nitro, Insulin, Cardizem)? @ -No Were any procedures done? @ -No Diagnosis/symptom? @ -Allergic reaction Acute, or Chronic, or Acute on Chronic? @ -acute Uncomplicated (without systemic symptoms) or Complicated (systemic symptoms)? @ -uncomplicated Side effects of treatment? @ -No Exacerbation, Progression, or Severe Exacerbation? @ -No Poses a threat to life or bodily function? How? (Chest pain, [place], [place], pneumonia, PE, COPD, DKA, ARF, appy, cholecystitis, CVA, Diverticulitis, Homicidal, Suicidal, threat to staff... and all critical care pts) @ -No Disposition Clinical Impression: Allergic reaction Disposition: HOME SELF-CARE Condition: Stable Instructions (If sedation given, give patient instructions): General Allergic Reaction (ED) Additional Instructions: Please follow up with your primary care provider. Return to the emergency department for new or worsening symptoms. Is patient prescribed a controlled substance at d/c from ED?: No Referrals: Kvng Jean MD [Primary Care Provider] - 1-2 days
[2024-06-15] MEDS: FAMOTIDINE 20 MG TAB PO STA (06:41)
[2024-06-15] MEDS: methylPREDNISolone SOD SUCCI 125 MG/2 ML VIAL IM ONE (06:44)
[2024-06-15] MEDS: diphenhydrAMINE 50 MG/ML 1 ML VIAL IM STA (06:47)
[2024-06-15 07:16] VITALS: BP 113/66; PULSE 65; TEMP 98
== END 2024-06-15 07:27 | disposition home or self-care (01) ==
LOC: EC 06:01
DX: T78.40XA Allergy, unspecified, initial encounter (principal); F17.200 Nicotine dependence, unspecified, uncomplicated; Z88.0 Allergy status to penicillin; Z88.5 Allergy status to narcotic agent; Z88.6 Allergy status to analgesic agent; Z88.7 Allergy status to serum and vaccine; Z88.8 Allergy status to other drugs, medicaments and biological substances
CPT/HCPCS: 99283; 96372; J1200; J2919

== ENCOUNTER → 2024-11-19 | Outpatient (CLI) | payer MEDICAID ==
--- NOTE | 2024-11-19 17:36 | CT ---
EXAMINATION TYPE: CT soft tissue neck w con DATE OF EXAM: 11/19/2024 2:14 PM COMPARISON: 10/15/2010 CLINICAL INDICATION: Female, 59 years old with history of R22.1 LOCALIZED SWELLING, MASS AND LUMP, NE CK, swelling and lump in neck TECHNIQUE: Axial images at 3 mm thick sections. Reconstructed images in the coronal plane and sagitt al plane are reviewed. Contrast used:100ml mL of Isovue 300 with IV Contrast, (none if empty) Oral contrast used: (none if empty) CT DLP: 275.2 mGycm, Automated exposure control for dose reduction was used. FINDINGS: Limited CT sections are obtained the lung apices. There is some increased density within the anterio r left apex may be some scarring from 2010. CT neck: The torus tubarius and fossa of Rosenmuller are normal. Vertical Lathe Operator spaces are normal. Para nasal sinuses and mastoid air cells are clear. Parotid glands appear normal and symmetrical. Submandibular glands, are normal. Parapharyngeal spac es are normal. No suspicious adenopathy is evident. The hypopharynx appears within normal limits. Vocal cord level appear symmetrical. Thyroid as visualized is normal. Osseous structures are normal. IMPRESSION: 1. Mild anterior left apical scarring within the lung apex. 2. No suspicious localized mass within the neck. [facility], , 11/19/2024 5:33 PM
== END | disposition home or self-care (01) ==
LOC: RADCTMAIN 13:46
PROVIDERS: ATTEND Otolaryngology
DX: R22.1 Localized swelling, mass and lump, neck (principal); J98.4 Other disorders of lung
CPT/HCPCS: 70491; Q9967